=== PATIENT | female | born 1965 | race Caucasian/White ===

== ENCOUNTER → 2016-09-01 | Outpatient (CLI) | payer OTHER ==
--- NOTE | 2016-09-02 14:59 | RADONC ---
RADIATION ONCOLOGY CONSULTATION NOTE DATE: 09/01/2016 CHART NUMBER: [id number] DIAGNOSIS: Left breast cancer. STAGE: IIIC, T2N3M0. ECOG PERFORMANCE STATUS: 0 CONSULTATION NOTE: Ms. Chowdary as a delightful 51-year-old white female with the diagnosis of what appears to be a stage IIIC, T2N3M0, moderately differentiated invasive ductal carcinoma of the left breast who is presenting to us today status post bilateral mastectomies, left axillary lymph node dissection, and chemotherapy consisting of Adriamycin and Cytoxan followed by weekly paclitaxel who is still in the process of receiving her paclitaxel and is now presenting for discussion of the postoperative radiation therapy in attempt to achieve local regional control. HISTORY OF PRESENT ILLNESS: The patient was in the usual state of health until February 2016, and she noticed a left-sided breast mass. On 03/05/2016, the patient underwent a mammogram which revealed a 3 cm x 3.7 cm x 1.7 cm lesion in the upper outer quadrant of the left breast. She subsequently went to the [facility] and was found to have a 7.3 cm x 3.7 cm x 3.4 cm upper outer quadrant left breast mass. Ultrasound was done and confirmed the mass. She was also noted to have large lymph nodes in the left axilla on ultrasound. FNA was done and revealed invasive ductal carcinoma which was moderately differentiated. The tumor was estrogen receptor and progesterone receptor positive and HER2 equivocal. A biopsy of the lymph node was also undertaken and found to be positive. On 04/01/2016, the patient underwent a PET scan which showed hypermetabolic uptake in the left breast superiorly with axillary, subclavian, subclavicular, and supraclavicular lymphadenopathy, all hypermetabolic. There were two suspicious foci of uptake in the internal mammary lymph nodes as well. The patient subsequently underwent bilateral mastectomies. The pathology of the left mastectomy showed moderately differentiated ductal carcinoma in situ with mucinous features. The tumor measured 3.6 cm x 3.4 cm x 2.2 cm. There was high-grade ductal carcinoma in situ as well. The deep margin of resection was focally positive for invasive carcinoma. The margins for DCIS were 8 mm from the closest margin. Axillary lymph node dissection showed metastatic carcinoma with involvement of 11 out of 11 lymph nodes. The largest focus was 3.5 cm, and extranodal extension was present. The patient subsequently underwent dose-dense Adriamycin/Cytoxan chemotherapy which began in April. She is now receiving weekly paclitaxel chemotherapy. She is thus far at her third or fourth fraction of that chemo. The patient has had expanders put in and is presenting today to discuss timing of surgical reconstruction. Her plastic surgeon wishes her to undergo reconstruction following completion of the paclitaxel but before initiation of radiation. PAST MEDICAL HISTORY: The patient's past medical history is positive for a multinodular goiter. This was biopsied in 2012. She has been in otherwise good health. ALLERGIES: The patient has no known drug allergies. SOCIAL HISTORY: The patient has smoked one pack of cigarettes per day for 30 years. She does not abuse alcohol. FAMILY HISTORY: The patient's family history is positive for a mother with breast cancer and a sister with leiomyosarcoma. REVIEW OF SYSTEMS: The patient's review of systems is positive for some dizziness since chemotherapy as well as some anxiety, but is otherwise generally noncontributory. 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 She denies nausea, vomiting, fevers, chills, night sweats, diplopia, headaches, anorexia, weight loss, visual disturbances, chest pain, urinary or bowel difficulties, or bone pain. PHYSICAL EXAMINATION: The patient is a well-developed, well-nourished female in no acute distress. HEENT exam is normocephalic, atraumatic. Extraocular movements are intact. There is no palpable cervical, supraclavicular, infraclavicular, axillary, or inguinal lymphadenopathy present. Lungs are clear to auscultation and percussion. Heart has a regular rate and rhythm. Abdomen is benign with no hepatosplenomegaly, masses, or tenderness. Chest wall examination reveals bilateral mastectomy scars present with expanders in place. There is no evidence of nodularity, ulceration, or recurrent disease. Skeletal examination reveals no tenderness to pressure or percussion of the bony skeleton. Extremities reveal no clubbing, cyanosis, or edema. Neurologic exam is grossly intact, as is the remainder of the physical examination. MEDICAL NECESSITY: IMRT/IGRT is clinically indicated for the highly conformal dose planning required. The target volume is in close proximity to critical structures, such as the heart, lungs, spinal cord, stomach, and esophagus. The volume of interest must be covered with narrow margins to adequately protect immediately adjacent structures. The plan requires interpretation of complex testing such as CT localization. As noted above, special planning (IMRT) and localizing (IGRT) is required and essential to maximally protect sensitive normal tissue structures which cannot be accomplished using conventional 3-dimensional planning. ASSESSMENT: Ms. Chowdary is clearly a candidate for postoperative radiation therapy, and I have so informed her. I have discussed with the patient in detail the potential benefits as well as possible acute and chronic sequelae of external beam radiation therapy. We discussed logistics of treatment planning, simulation, and subsequent fractionated daily radiation treatments. In this patient in particular, I believe IMRT/IGRT would be of benefit. She has a massive amount of lymphadenopathy including all 11 lymph nodes in the axillary region as positive. Her PET scan also shows uptake in the lymph node areas of the subclavicular, subclavian, as well as the internal mammary node chain. In light of the positive PET scan in the internal mammary node chain, these nodes will need to be included in our treatment field. The patient is actually quite young and to include all those nodes on the left side would include a significant amount of heart if we did not to IMRT/IGRT as a therapeutic option for this woman. This technique should allow us to reduce radiation dose to the heart and other normal structures while treating the clinically significant lymph nodes. I also had a very lengthy discussion with her reconstruction. I think this patient is at great risk for local recurrence as well as metastatic disease, and I do not wish to delay radiation unnecessarily. If the surgeon can undertake the reconstruction immediately following her last paclitaxel, then it should not delay radiation by much. We usually wait 1 month post chemotherapy before we initiate treatment. I would think that this would need healing time of approximately the same amount and, therefore, radiation should not be delayed by very much at all. If, however this surgery is going to delay treatment in this patient with exceedingly aggressive and locally advanced disease, I would prefer to begin radiation. She will be discussing this with her surgeon. In the meantime, the patient has at least six more weeks of systemic therapy to undergo. I have, therefore, scheduled to see her again either the first week or second week of November to undergo further evaluation. Radiation can begin at that time if there are no issues with the reconstruction. Thank you for allowing us to participate in the care of this delightful woman. If I could be of any further assistance, please feel free to contact me at anytime. cc: MD Kyler Gonzales *Gio Shen MD *Kelsey Castle MD
== END ==
LOC: M ONCR 13:22
PROVIDERS: ATTEND Radiology Radiation Oncology
DX: C50.912 Malignant neoplasm of unspecified site of left female breast (principal)

== ENCOUNTER → 2016-12-03 | Outpatient (CLI) | payer OTHER ==
--- NOTE | 2016-12-03 13:52 | RADONC ---
RADIATION ONCOLOGY RE-CONSULTATION NOTE DATE: 12/03/2016 CHART NUMBER: [id number] DIAGNOSIS: Left breast cancer. STAGE: IIIC, T2N3M0. ECOG PERFORMANCE STATUS: 0. CONSULTATION NOTE: Ms. Chowdary is a delightful 51-year-old white female with the diagnosis of a stage IIIC, T2N3M0, moderately differentiated invasive ductal carcinoma of the left breast who initially presented to us on 09/01/2016 for consideration of postoperative radiation therapy in an attempt to increase the likelihood of achieving local control. The patient has undergone bilateral mastectomies, left axillary lymph node dissection and chemotherapy consisting of Adriamycin and Cytoxan followed by weekly paclitaxel. In addition she has had reconstruction of her left chest wall completed. Her surgery was done on November 11, 2016. Her last chemotherapy was October 22, 2016. The patient has done well since both of those and is now presenting for consideration of external beam radiation therapy. REVIEW OF SYSTEMS: The patient's review of systems is noncontributory. She denies nausea, vomiting, fevers, chills, night sweats, diplopia, headaches, anxiety or depression, anorexia, weight loss, visual disturbances, chest pain, urinary or bowel difficulties, bone pain, or neurological problems. ALLERGIES: The patient has no known drug allergies. PHYSICAL EXAMINATION: The patient is a well-developed, well-nourished, female in no acute distress. HEENT exam is normocephalic, atraumatic. Extraocular movements are intact. There is no palpable cervical, supraclavicular, infraclavicular, axillary, or inguinal lymphadenopathy present. Lungs are clear to auscultation and percussion. Heart has a regular rate and rhythm. Abdomen is benign with no hepatosplenomegaly, masses, or tenderness. Chest wall examination reveals bilateral scars which are healed. The left cosmetic scar is healing nicely. Skeletal examination reveals no tenderness to pressure or percussion of the bony skeleton. Extremities reveal no clubbing, cyanosis, or edema. Neurologic exam is grossly intact, as is the remainder of the physical examination. ASSESSMENT: Ms. Chowdary is almost ready to initiate radiation. I have scheduled the patient for the next available simulation slot and radiation will begin subsequently. Once again I have discussed with the patient in detail the potential benefits as well as possible acute and chronic sequelae. We discussed logistics of treatment planning, simulation subsequent fractionated daily radiation treatments. I discussed the medical necessity with her with regards to our treatment techniques. We will require IMRT. MEDICAL NECESSITY: IMRT/IGRT is clinically indicated for a highly conformal dose planning regard. The target volume is in close proximity to critical structures, such as the heart, lungs, spinal cord, stomach, and esophagus. The volume of interest must be covered with narrow margins to adequately protect immediately adjacent structures. The plan requires interpretations of complex testing such as CT localization. As noted above, special planning (IMRT) and localizing [IGRT) is required and essential to maximize protect sensitive normal tissue structures which cannot be accomplished using conventional three-dimensional planning. Thank you for allowing us to participate in the care of this very pleasant woman. If I could be of any further assistance or provide you with any information, please free to contact me anytime. cc: Mel Connors MD, FACP MD Kyler Rodriguez MD
--- NOTE | 2016-12-08 14:59 | RADONC ---
RADIATION ONCOLOGY SIMULATION NOTE: DATE: 12/08/2016 CHART NUMBER: [id number] Ms. Chowdary was taken to the CT scan for CT simulation of her left breast field. CT was accomplished without difficulty or discomfort. Radiation treatment planning is underway and radiation treatments will begin subsequently. I was physically present throughout the course of CT simulation. An immobilization device was created and will be used throughout the course of treatment. It was also created without difficulty or discomfort. IMRT treatment planning is underway. The patient's surgical scar is healing nicely but they are still sutures present. She should be ready to begin in a week to a week and a half or so.
== END ==
LOC: M ONCR 09:56
PROVIDERS: ATTEND Radiology Radiation Oncology
DX: C50.412 Malignant neoplasm of upper-outer quadrant of left female breast (principal)

== ENCOUNTER 2016-12-08 15:25 | Outpatient (RCR) | payer OTHER | END 2016-12-11 | LOC: M ONCR 15:25 | PROVIDERS: ATTEND Radiology Radiation Oncology | DX: C50.412 Malignant neoplasm of upper-outer quadrant of left female breast (principal) ==

== ENCOUNTER → 2016-12-08 | Outpatient (CLI) | payer OTHER | LOC: M RAD 14:18 | PROVIDERS: ATTEND Radiology Radiation Oncology | DX: C50.412 Malignant neoplasm of upper-outer quadrant of left female breast (principal) ==

== ENCOUNTER 2016-12-21 16:24 | Outpatient (RCR) | payer OTHER ==
--- NOTE | 2016-12-28 15:17 | RADONC ---
RADIATION ONCOLOGY PROGRESS NOTE: DATE: 12/28/2016 CHART NUMBER: [id number] Ms. Chowdary is presently at a dose of 540 cGy to her left chest wall and is tolerating treatments quite well at this point with no complaints related to her radiation therapy. She is having no skin or bone pain. REVIEW OF SYSTEMS: The patient's review of systems is noncontributory. She denies nausea, vomiting, fevers, chills, night sweats, diplopia, headaches, anxiety or depression, anorexia, weight loss, visual disturbances, chest pain, urinary or bowel difficulties, bone pain, or neurological problems. PHYSICAL EXAMINATION: The patient's skin is in good condition with no evidence of radiation change present. There is no moist or dry desquamation. The remainder of her physical exam remains unchanged. Ms. Chowdary is tolerating treatments quite well and radiation will continue as scheduled.
--- NOTE | 2017-01-05 08:58 | RADONC ---
RADIATION ONCOLOGY PROGRESS NOTE DATE: 01/04/2017 CHART NUMBER: [id number] Ms. Chowdary is presently at a dose of 1080 cGy to her chest wall and is tolerating treatments quite well at this point with no complaints related to her radiation therapy. She is having no skin or bone pain. The patient's review of systems is noncontributory. She denies nausea, vomiting, fevers, chills, night sweats, diplopia, headaches, anxiety or depression, anorexia, weight loss, visual disturbances, chest pain, urinary or bowel difficulties, bone pain, or neurological problems. PHYSICAL EXAMINATION: The patient's skin is in good condition with no evidence of moist or dry desquamation. The remainder of her physical exam remains unchanged. Ms. Chowdary is tolerating treatments quite well and radiation will continue as scheduled.
== END 2017-01-11 ==
LOC: M ONCR 16:24
PROVIDERS: ATTEND Radiology Radiation Oncology
DX: C50.412 Malignant neoplasm of upper-outer quadrant of left female breast (principal)

== ENCOUNTER 2017-01-12 11:04 | Outpatient (RCR) | payer OTHER ==
--- NOTE | 2017-01-18 10:12 | RADONC ---
RADIATION ONCOLOGY PROGRESS NOTE: DATE: 01/18/2017 CHART NUMBER: [id number] Ms. Chowdary is presently at a dose of 3060 cGy to her left chest wall and lymphatic drainage sites and is tolerating treatments quite well at this point with no complaints related to her radiation therapy. She is having no chest wall or bone pain. REVIEW OF SYSTEMS: The patient's review of systems is noncontributory. She denies nausea, vomiting, fevers, chills, night sweats, diplopia, headaches, anxiety or depression, anorexia, weight loss, visual disturbances, chest pain, urinary or bowel difficulties, bone pain, or neurological problems. PHYSICAL EXAMINATION: The patient's skin is in good condition with no evidence of moist or dry desquamation. There is some radiation tanning present. The remainder of her physical exam remains unchanged. Ms. Chowdary is tolerating treatments quite well and radiation will continue as scheduled.
--- NOTE | 2017-01-26 08:55 | RADONC ---
RADIATION ONCOLOGY PROGRESS NOTE DATE: 01/25/2017 CHART NUMBER: [id number] Ms. Chowdary is presently at a dose of 3960 cGy to her left chest wall and is tolerating treatments quite well at this point with no complaints related to her radiation therapy. She is having no chest wall or bone pain. REVIEW OF SYSTEMS: The patient's review of systems is noncontributory. She denies nausea, vomiting, fevers, chills, night sweats, diplopia, headaches, anxiety or depression, anorexia, weight loss, visual disturbances, chest pain, urinary or bowel difficulties, bone pain, or neurological problems. PHYSICAL EXAMINATION: The patient's skin is in good condition with no evidence of moist or dry desquamation. The remainder of her physical exam remains unchanged. Ms. Chowdary is tolerating treatments quite well and radiation will continue as scheduled.
--- NOTE | 2017-02-02 11:11 | RADONC ---
RADIATION ONCOLOGY PROGRESS NOTE: DATE OF SERVICE: 02/01/2017 CHART NUMBER [id number] Ms. Chowdary is presently at a dose of 4860 cGy to her left chest wall and is tolerating treatments quite well at this point with no significant difficulties related to her radiation therapy other than some fatigue. She has no breast or bone pain. The patient's review of systems is positive for fatigue but is otherwise noncontributory. She denies nausea, vomiting, fevers, chills, night sweats, diplopia, headaches, anxiety or depression, anorexia, weight loss, visual disturbances, chest pain, urinary or bowel difficulties, bone pain, or neurological problems. PHYSICAL EXAMINATION: The patient's skin is in excellent condition with no evidence of moist or dry desquamation. The remainder of her physical exam remains unchanged. Ms. Chowdary is tolerating treatments quite well and radiation will continue as scheduled.
--- NOTE | 2017-02-09 09:02 | RADONC ---
RADIATION ONCOLOGY PROGRESS NOTE DATE: 02/08/2017 CHART NUMBER: [id number] Ms. Chowdary is presently at a dose of 5760 cGy to her left to left chest wall boost and is tolerating treatments quite well at this point with no complaints related to her radiation therapy. She is having no significant skin discomfort or other problems. The patient's review of systems is noncontributory. She denies nausea, vomiting, fevers, chills, night sweats, diplopia, headaches, anxiety or depression, anorexia, weight loss, visual disturbances, chest pain, urinary or bowel difficulties, bone pain, or neurological problems. PHYSICAL EXAMINATION: The patient's skin is in good condition with no evidence of moist or dry desquamation. The remainder of her physical exam remains unchanged. Ms. Chowdary is tolerating her treatments quite well and radiation will continue as scheduled.
--- NOTE | 2017-02-10 13:50 | RADONC ---
RADIATION ONCOLOGY TREATMENT SUMMARY DATE: 02/09/2017 CHART NUMBER: [id number] DIAGNOSIS: Left breast cancer. STAGE: IIIC, T2N3M0. ECOG PERFORMANCE STATUS: 0 TREATMENT SUMMARY: Ms. Chowdary is a delightful 51-year-old white female with the diagnosis of a stage IIIC, T2N3M0, moderately differentiated invasive ductal carcinoma of the left breast, who presented to us status post bilateral mastectomies, left axillary lymph node dissection, and chemotherapy consisting of Adriamycin and Cytoxan followed by weekly paclitaxel for consideration of postoperative radiation therapy to her left chest wall and lymph node drainage sites utilizing IMRT. We treated the patient to her chest wall and lymph node sites for a dose of 5040 cGy delivered in 28 fractions of 180 cGy each over 40 elapsed days from 12/24/2016 to 02/02/2017. The patient's left chest wall and lymph node drainage sites were treated on the linear accelerator utilizing a 6 MV photon beam via IMRT/IGRT. Following completion of 5040 cGy to the entire chest wall and lymph node regions, we delivered an additional 900 cGy to her primary site area from 02/03/2017 through 02/09/2017. The primary site region was treated on a linear accelerator utilizing a 6 MV photon beam once again via IMRT. This brought the primary site to a total dose of 5940 cGy delivered in 33 fractions over 47 elapsed days from 12/24/2016 through 02/09/2017. Ms. Chowdary tolerated her treatments quite well with no difficulties related to her radiation therapy. She was able to complete therapy as prescribed without interruption. I have scheduled the patient to see me again in 1 month for further followup. She will also continue to be followed by her other physicians as well. cc: Mel Connors MD, FACP MD Kyler Rodriguez MD
== END 2017-02-11 ==
LOC: M ONCR 11:04
PROVIDERS: ATTEND Radiology Radiation Oncology
DX: C50.412 Malignant neoplasm of upper-outer quadrant of left female breast (principal)

== ENCOUNTER → 2017-01-21 | Outpatient (REF) | payer OTHER ==
[2017-01-21 19:35] LABS: PERCENT SATURATION 26.5 % (13.2-45.0)
== END ==
LOC: M LAB REF 16:39
PROVIDERS: ATTEND Internal Medicine Medical Oncology
DX: C50.919 Malignant neoplasm of unspecified site of unspecified female breast (principal); D64.9 Anemia, unspecified

== ENCOUNTER → 2017-02-01 | Outpatient (CLI) | payer OTHER ==
--- NOTE | 2017-02-03 10:58 | DEXA ---
AP SPINE L1 - L4 0.978 -1.8 -1.2 LT FEMUR TOTAL 0.706 -2.4 -1.8 RT FEMUR TOTAL 0.713 -2.3 -1.8 TOTAL BODY TOTAL OTHER DUAL FEMUR FRAX* ASSESSMENT Risk factors: Not done. 10 year probability of fracture Major osteoporotic fracture % Hip fracture % COMMENTS: There is low bone density of the spine and hips. FOLLOW-UP: Recommendation for the next bone density exam: 2 years. MTDD
== END ==
LOC: M WHC 14:32
PROVIDERS: ATTEND Internal Medicine Medical Oncology
DX: Z79.811 Long term (current) use of aromatase inhibitors (principal); C50.919 Malignant neoplasm of unspecified site of unspecified female breast; Z78.0 Asymptomatic menopausal state

== ENCOUNTER → 2017-03-17 | Outpatient (CLI) | payer OTHER ==
--- NOTE | 2017-03-18 08:09 | RADONC ---
RADIATION ONCOLOGY FOLLOWUP NOTE DATE: 03/17/2017 CHART NUMBER: [id number]. DIAGNOSIS: Left breast cancer. STAGE: IIIC, T2N3M0 ECOG PERFORMANCE STATUS: Zero. FOLLOWUP NOTE: Ms. Chowdary is a delightful, 51-year-old white female with the diagnosis of what appears to be a stage IIIC, T2N3M0 moderately differentiated invasive ductal carcinoma of the left breast who is presenting to us today for routine followup visit 1 month post completion of external beam radiation therapy. The patient presents today reporting that she is doing quite well with no complaints at this time related to her radiation therapy or disease. She has no chest wall or bone pain. REVIEW OF SYSTEMS: The patient's review of systems is noncontributory. Denies nausea, vomiting, fevers, chills, night sweats, diplopia, headaches, anxiety or depression, anorexia, weight loss, visual disturbances, chest pain, urinary or bowel difficulties, bone pain, or neurological problems. PHYSICAL EXAMINATION: The patient is a well-developed, well-nourished, 51-year-old white female in no acute distress. HEENT exam is normocephalic, atraumatic. Extraocular movements are intact. There is no palpable cervical, supraclavicular, infraclavicular, axillary, or inguinal lymphadenopathy present. Lungs are clear to auscultation and percussion. Heart has a regular rate and rhythm. Abdomen is benign with no hepatosplenomegaly, masses, or tenderness. Breast examination reveals bilateral chest wall examination reveals no evidence of nodularity, ulceration or recurrent disease. There is radiation tanning present over the radiated breast. Skeletal examination reveals no tenderness to pressure or percussion of the bony skeleton. Extremities reveal no clubbing, cyanosis, or edema. Neurologic exam is grossly intact, as is the remainder of the physical examination. ASSESSMENT: The patient is clinically doing quite well at this point and will be seen by us again in 6 months for further followup. She will also continue to be followed by her other physicians as well. cc: Mel Connors MD, FACP MD Kyler Rodriguez MD
== END ==
LOC: M ONCR 15:17
PROVIDERS: ATTEND Radiology Radiation Oncology
DX: C50.412 Malignant neoplasm of upper-outer quadrant of left female breast (principal)

== ENCOUNTER → 2017-11-16 | Outpatient (REF) | payer OTHER ==
[2017-11-16 19:15] LABS: FERRITIN 88 NG/ML (8-252); IRON (FE) 77 UG/DL (50-170); PERCENT SATURATION 23.6 % (13.2-45.0); TOTAL IRON BINDING CAPACITY 326 UG/DL (250-450)
== END ==
LOC: M LAB REF 17:46
DX: D64.9 Anemia, unspecified (principal); C50.412 Malignant neoplasm of upper-outer quadrant of left female breast
CPT/HCPCS: 83550

== ENCOUNTER 2018-05-26 17:28 | Inpatient (IN) | payer OTHER ==
[2018-05-26 18:31] LABS: BASO % 0.2 % (0.0-1.0); EOS % 0.2 % (0.0-3.0); HEMOGLOBIN 12.7 g/dl (12.0-15.5); IMMATURE GRANULOCYTE % 0.4 % (0-3.0); LYMPH # 1.4 10^3/uL (1.5-4.5); LYMPH % 13.6 % (24.0-44.0); MEAN CORPUSCULAR HEMOGLOBIN 29.4 pg (27.0-33.0); MEAN CORPUSCULAR HGB CONC 32.6 g/dl (32.0-36.5); MEAN CORPUSCULAR VOLUME 90.3 fl (80.0-96.0); MONO # 0.2 10^3/uL (0.0-0.8); MONO % 2.3 % (0.0-5.0); NEUTROPHILS # 8.5 10^3/uL (1.8-7.7); NEUTROPHILS % 83.3 % (36.0-66.0); PLATELET COUNT, AUTOMATED 335 10^3/uL (150-450); RED BLOOD COUNT 4.32 10^6/uL (4.00-5.40); RED CELL DISTRIBUTION WIDTH 13.9 % (11.5-14.5); WHITE BLOOD COUNT 10.2 10^3/uL (4.0-10.0)
[2018-05-26] MEDS ORDERED: ACETAMINOPHEN TAB 650MG DOSE (2X325MG) PO (18:45)
[2018-05-26] MEDS ORDERED: PERCOCET 5MG/325MG TAB PO ×2 (18:45)
[2018-05-26] MEDS ORDERED: BISACODYL 10 MG SUPP PR (18:45)
[2018-05-26 18:57] LABS: ANION GAP 8 MEQ/L (8-16); BLOOD UREA NITROGEN 11 MG/DL (7-18); CALCIUM LEVEL 9.8 MG/DL (8.5-10.1); CARBON DIOXIDE LEVEL 27 MEQ/L (21-32); CHLORIDE LEVEL 103 MEQ/L (98-107); CK-MB VALUE MASS < 1.0 NG/ML (<3.6); CPK CREATINE PHOSPHOKINASE 45 U/L (26-192); CREATININE FOR GFR 0.64 MG/DL (0.55-1.30); GLOMERULAR FILTRATION RATE > 60.0 (>51); GLUCOSE, FASTING 117 MG/DL (70-100); MB/CK RELATIVE INDEX 2.22 (< OR =4); POTASSIUM SERUM 4.3 MEQ/L (3.5-5.1); SODIUM LEVEL 138 MEQ/L (136-145); TROPONIN I < 0.02 NG/ML (< 0.10)
[2018-05-26 19:08] LABS: LDH LACTATE DEHYDROGENASE 292 U/L (84-246)
[2018-05-26] MEDS ORDERED: MIDAZOLAM INJ 2 MG/2 ML VIAL (J2250) As Ordered ×3 (19:09)
[2018-05-26] MEDS ORDERED: LIDOCAINE 1% MDV 20ML VIAL As Ordered (19:09)
[2018-05-26] MEDS ORDERED: FLUMAZENIL 0.5 MG/5 ML VIAL As Ordered (19:09)
[2018-05-26 19:29] LABS: PROTHROMBIN TIME 13.3 SECONDS (12.1-14.4)
[2018-05-26 19:30] LABS: PARTIAL THROMBOPLASTIN TIME 28.2 SECONDS (25.4-37.6)
[2018-05-26] MEDS: MIDAZOLAM INJ 5 MG/ML VIAL (J2250) IV (20:05)
[2018-05-26] MEDS: MIDAZOLAM INJ 2 MG/2 ML VIAL (J2250) IV ×2 (20:08→20:15)
[2018-05-26] MEDS: LIDOCAINE 1% MDV 20ML VIAL SC (20:10)
[2018-05-26] MEDS: KETOROLAC 30 MG/ML VIAL (J1885) IV ×2 (20:20→23:15)
[2018-05-26 20:46] LABS: PH BODY FLUID 7.591 UNITS (NOT ESTABLISHED); SOURCE, BODY FLUID pH PLEURAL
[2018-05-26 20:58] LABS: BF MONONUCLEAR CELL % 86.1 % (0-0); BF POLYMORPHONUCLEAR CELL % 13.9 % (0-0); RBC BODY FLUID 143 10^3/uL (<2); WBC BODY FLUID 347 /uL (0-10)
[2018-05-26 20:59] LABS: APPEARANCE, BODY FLUID CLOUDY (CLEAR); BF DIFF IF INDICATED? YES (NO); PLEURAL FL COLOR RED (COLORLESS); SOURCE, BODY FLUID PLEURAL
[2018-05-26 21:02] LABS: ABG BASE EXCESS 0.2 (-2.0-2.0); ABG HCO3 25.4 MEQ/L (22.0-26.0); ABG O2 SATURATION 95.2 % (95.0-99.0); ABG PARTIAL PRESSURE CO2 43.4 mmHg (35.0-45.0); ABG PARTIAL PRESSURE O2 80.7 mmHg (75.0-100.0); ABG STANDARD HCO3 24.6 MEQ/L (22.0-26.0); ABG TOTAL CO2 26.7 MEQ/L (22.0-29.0); ABG pH (ARTERIAL) 7.385 UNITS (7.350-7.450)
[2018-05-26] MEDS: LEVALBUTEROL 1.25 MG/0.5 ML CONCENTRATE NEB NEB (21:04)
[2018-05-26 21:11] LABS: AMYLASE, BODY FLUID 64 U/L (NOT ESTABLISHED); CHOLESTEROL, BODY FLUID 101 MG/DL (NOT ESTABLISHED); LDH, BODY FLUID 504 U/L (NOT ESTABLISHED); SOURCE, BODY FLUID AMYLASE PLEURAL; SOURCE, BODY FLUID CHOL PLEURAL; SOURCE, BODY FLUID GLUCOSE PLEURAL; SOURCE, BODY FLUID LDH PLEURAL; SOURCE, BODY FLUID TRIG PLEURAL; TRIGLYCERIDE, BODY FLUID 47 MG/DL (NOT ESTABLISHED)
[2018-05-26 21:15] LABS: SOURCE, BODY FLUID ALBUMIN PLEURAL; SOURCE, BODY FLUID TOT PROTEIN PLEURAL; TOTAL PROTEIN, BODY FLUID 4.6 G/DL (NOT ESTABLISHED)
[2018-05-26] MEDS: KCL 20MEQ IN D5/NS 1000ML 1,000 ML IV (21:45)
[2018-05-26] MEDS: DULoxetine 30 MG CAP (CYMBALTA) PO (21:46)
[2018-05-26] MEDS: DOCUSATE SODIUM 100 MG CAP PO (21:46)
[2018-05-26] MEDS: HEPARIN SOD (PORCINE) 5000 UNITS/ML VIAL SC (21:47)
[2018-05-26] MEDS: LETROZOLE 2.5 MG TAB PO ×2 (21:47→22:21)
[2018-05-27] MEDS: LEVALBUTEROL 1.25 MG/0.5 ML CONCENTRATE NEB NEB ×4 (02:32→20:37)
[2018-05-27 05:01] LABS: BASO % 0.3 % (0.0-1.0); EOS # 0.1 10^3/uL (0.0-0.50); EOS % 1.2 % (0.0-3.0); HEMATOCRIT 31.6 % (36.0-47.0); IMMATURE GRANULOCYTE % 0.4 % (0-3.0); LYMPH # 2.4 10^3/uL (1.5-4.5); LYMPH % 20.5 % (24.0-44.0); MEAN CORPUSCULAR HEMOGLOBIN 29.4 pg (27.0-33.0); MEAN CORPUSCULAR HGB CONC 31.6 g/dl (32.0-36.5); MEAN CORPUSCULAR VOLUME 92.9 fl (80.0-96.0); MONO # 0.6 10^3/uL (0.0-0.8); MONO % 5.4 % (0.0-5.0); NEUTROPHILS # 8.3 10^3/uL (1.8-7.7); NEUTROPHILS % 72.2 % (36.0-66.0); PLATELET COUNT, AUTOMATED 263 10^3/uL (150-450); WHITE BLOOD COUNT 11.5 10^3/uL (4.0-10.0)
[2018-05-27 05:17] LABS: ANION GAP 5 MEQ/L (8-16); BLOOD UREA NITROGEN 10 MG/DL (7-18); CALCIUM LEVEL 8.5 MG/DL (8.5-10.1); CARBON DIOXIDE LEVEL 26 MEQ/L (21-32); CHLORIDE LEVEL 109 MEQ/L (98-107); CREATININE FOR GFR 0.56 MG/DL (0.55-1.30); GLOMERULAR FILTRATION RATE > 60.0 (>51); GLUCOSE, FASTING 112 MG/DL (70-100); POTASSIUM SERUM 4.4 MEQ/L (3.5-5.1); SODIUM LEVEL 140 MEQ/L (136-145)
[2018-05-27] MEDS: KETOROLAC 30 MG/ML VIAL (J1885) IV ×3 (05:27→17:14)
[2018-05-27 07:26] LABS: ABG BASE EXCESS -1.4 (-2.0-2.0); ABG HCO3 23.4 MEQ/L (22.0-26.0); ABG O2 SATURATION 98.3 % (95.0-99.0); ABG PARTIAL PRESSURE CO2 39.5 mmHg (35.0-45.0); ABG PARTIAL PRESSURE O2 125.8 mmHg (75.0-100.0); ABG STANDARD HCO3 23.3 MEQ/L (22.0-26.0); ABG TOTAL CO2 24.6 MEQ/L (22.0-29.0)
[2018-05-27] MEDS: MOM 30ML SUSPENSION UDC PO (10:02)
[2018-05-27] MEDS: KCL 20MEQ IN D5/NS 1000ML 1,000 ML IV (10:03)
[2018-05-27] MEDS: HEPARIN SOD (PORCINE) 5000 UNITS/ML VIAL SC ×2 (10:03→20:56)
[2018-05-27] MEDS: DOCUSATE SODIUM 100 MG CAP PO ×2 (10:13→20:54)
[2018-05-27] MEDS: PANTOPRAZOLE 40MG TAB (PROTONIX) PO (10:13)
[2018-05-27] MEDS: LORazepam 1 MG TAB PO (17:38)
[2018-05-27] MEDS: diphenhydrAMINE 25 MG CAP PO (20:54)
[2018-05-27] MEDS: DULoxetine 30 MG CAP (CYMBALTA) PO (20:55)
[2018-05-27] MEDS: LETROZOLE 2.5 MG TAB PO (20:55)
[2018-05-28] MEDS: KETOROLAC 30 MG/ML VIAL (J1885) IV ×2 (00:15→05:25)
[2018-05-28] MEDS: LEVALBUTEROL 1.25 MG/0.5 ML CONCENTRATE NEB NEB ×4 (01:02→20:09)
[2018-05-28 05:54] LABS: BASO % 0.4 % (0.0-1.0); EOS # 0.6 10^3/uL (0.0-0.50); EOS % 6.6 % (0.0-3.0); HEMATOCRIT 23.9 % (36.0-47.0); IMMATURE GRANULOCYTE % 0.5 % (0-3.0); LYMPH # 1.9 10^3/uL (1.5-4.5); LYMPH % 22.8 % (24.0-44.0); MEAN CORPUSCULAR HEMOGLOBIN 28.7 pg (27.0-33.0); MEAN CORPUSCULAR HGB CONC 31.4 g/dl (32.0-36.5); MEAN CORPUSCULAR VOLUME 91.6 fl (80.0-96.0); MONO # 0.6 10^3/uL (0.0-0.8); MONO % 6.7 % (0.0-5.0); NEUTROPHILS # 5.3 10^3/uL (1.8-7.7); PLATELET COUNT, AUTOMATED 213 10^3/uL (150-450); RED BLOOD COUNT 2.61 10^6/uL (4.00-5.40); RED CELL DISTRIBUTION WIDTH 13.9 % (11.5-14.5); WHITE BLOOD COUNT 8.5 10^3/uL (4.0-10.0)
[2018-05-28 06:03] LABS: HEMOGLOBIN 7.5 g/dl (12.0-15.5)
[2018-05-28 06:21] LABS: ANION GAP 6 MEQ/L (8-16); BLOOD UREA NITROGEN 8 MG/DL (7-18); CALCIUM LEVEL 7.9 MG/DL (8.5-10.1); CARBON DIOXIDE LEVEL 27 MEQ/L (21-32); CHLORIDE LEVEL 106 MEQ/L (98-107); CREATININE FOR GFR 0.48 MG/DL (0.55-1.30); GLOMERULAR FILTRATION RATE > 60.0 (>51); GLUCOSE, FASTING 96 MG/DL (70-100); SODIUM LEVEL 139 MEQ/L (136-145)
[2018-05-28 07:48] LABS: HEMATOCRIT 23.1 % (36.0-47.0); HEMOGLOBIN 7.6 g/dl (12.0-15.5)
[2018-05-28 08:55] LABS: CREATININE BF 0.4 MG/DL (NOT ESTABLISHED); SOURCE, BODY FLUID CREATININE PLEURAL
[2018-05-28] MEDS: HEPARIN SOD (PORCINE) 5000 UNITS/ML VIAL SC ×2 (09:00→21:00)
[2018-05-28] MEDS: NS 1,000 ML IV (09:00)
[2018-05-28] MEDS: MOM 30ML SUSPENSION UDC PO (09:00)
[2018-05-28] MEDS: DOCUSATE SODIUM 100 MG CAP PO ×2 (09:00→20:57)
[2018-05-28] MEDS: PANTOPRAZOLE 40MG TAB (PROTONIX) PO (09:00)
[2018-05-28] MEDS ORDERED: ISOVUE-370 76% 100ML VIAL (Q9967) As Ordered (09:02)
[2018-05-28 10:42] LABS: IMMEDIATE SPIN CROSSMATCH 1 2
[2018-05-28] MEDS: ONDANSETRON 4MG/2ML VIAL (J2405) IV ×2 (12:42→19:34)
[2018-05-28] MEDS: NORCO, ANEXSIA 5/325MG TABLET (HYDROcodone/ACETAMINOPHEN) PO ×2 (12:44→19:37)
[2018-05-28] MEDS: KCL 20MEQ IN D5/NS 1000ML 1,000 ML IV (13:17)
[2018-05-28 13:43] LABS: HEMATOCRIT 30.5 % (36.0-47.0); HEMOGLOBIN 10.2 g/dl (12.0-15.5)
[2018-05-28 15:29] LABS: HEMATOCRIT 29.6 % (36.0-47.0); HEMOGLOBIN 9.9 g/dl (12.0-15.5)
[2018-05-28 19:00] LABS: HEMATOCRIT 27.9 % (36.0-47.0); HEMOGLOBIN 9.5 g/dl (12.0-15.5)
[2018-05-28] MEDS: LETROZOLE 2.5 MG TAB PO (20:57)
[2018-05-28] MEDS: DULoxetine 30 MG CAP (CYMBALTA) PO (20:57)
[2018-05-28] MEDS: diphenhydrAMINE 25 MG CAP PO (20:59)
[2018-05-29] MEDS: ONDANSETRON 4MG/2ML VIAL (J2405) IV ×3 (00:14→17:44)
[2018-05-29] MEDS: NORCO, ANEXSIA 5/325MG TABLET (HYDROcodone/ACETAMINOPHEN) PO ×3 (00:15→17:45)
[2018-05-29] MEDS: KCL 20MEQ IN D5/NS 1000ML 1,000 ML IV ×2 (00:17→12:40)
[2018-05-29] MEDS: LEVALBUTEROL 1.25 MG/0.5 ML CONCENTRATE NEB NEB ×5 (00:18→20:10)
[2018-05-29 04:14] LABS: BASO % 0.2 % (0.0-1.0); EOS # 0.5 10^3/uL (0.0-0.50); EOS % 5.2 % (0.0-3.0); HEMATOCRIT 26.6 % (36.0-47.0); HEMOGLOBIN 8.9 g/dl (12.0-15.5); IMMATURE GRANULOCYTE % 0.3 % (0-3.0); LYMPH # 1.7 10^3/uL (1.5-4.5); LYMPH % 17.4 % (24.0-44.0); MEAN CORPUSCULAR HEMOGLOBIN 30.3 pg (27.0-33.0); MEAN CORPUSCULAR HGB CONC 33.5 g/dl (32.0-36.5); MEAN CORPUSCULAR VOLUME 90.5 fl (80.0-96.0); MONO # 0.8 10^3/uL (0.0-0.8); MONO % 7.7 % (0.0-5.0); NEUTROPHILS # 6.7 10^3/uL (1.8-7.7); NEUTROPHILS % 69.2 % (36.0-66.0); PLATELET COUNT, AUTOMATED 191 10^3/uL (150-450); RED BLOOD COUNT 2.94 10^6/uL (4.00-5.40); RED CELL DISTRIBUTION WIDTH 13.9 % (11.5-14.5); WHITE BLOOD COUNT 9.7 10^3/uL (4.0-10.0)
[2018-05-29 04:15] LABS: ANION GAP 5 MEQ/L (8-16); BLOOD UREA NITROGEN 6 MG/DL (7-18); CALCIUM LEVEL 7.7 MG/DL (8.5-10.1); CARBON DIOXIDE LEVEL 25 MEQ/L (21-32); CHLORIDE LEVEL 107 MEQ/L (98-107); CREATININE FOR GFR 0.44 MG/DL (0.55-1.30); GLOMERULAR FILTRATION RATE > 60.0 (>51); GLUCOSE, FASTING 119 MG/DL (70-100); POTASSIUM SERUM 4.1 MEQ/L (3.5-5.1); SODIUM LEVEL 137 MEQ/L (136-145)
[2018-05-29] MEDS: PANTOPRAZOLE 40MG TAB (PROTONIX) PO (09:59)
[2018-05-29] MEDS: MOM 30ML SUSPENSION UDC PO (10:46)
[2018-05-29] MEDS: DOCUSATE SODIUM 100 MG CAP PO ×2 (10:46→20:24)
[2018-05-29 12:01] LABS: IMMEDIATE SPIN CROSSMATCH 1 1
[2018-05-29] MEDS: FERROUS SULFATE 325MG TAB PO (15:13)
[2018-05-29] MEDS: LETROZOLE 2.5 MG TAB PO (20:36)
[2018-05-29] MEDS: DULoxetine 30 MG CAP (CYMBALTA) PO (20:36)
[2018-05-29] MEDS: LORazepam 1 MG TAB PO (22:06)
[2018-05-30] MEDS: LEVALBUTEROL 1.25 MG/0.5 ML CONCENTRATE NEB NEB ×5 (00:02→19:44)
[2018-05-30 04:05] LABS: BASO % 0.3 % (0.0-1.0); EOS # 0.5 10^3/uL (0.0-0.50); HEMATOCRIT 30.5 % (36.0-47.0); HEMOGLOBIN 10.3 g/dl (12.0-15.5); IMMATURE GRANULOCYTE % 0.6 % (0-3.0); LYMPH # 1.3 10^3/uL (1.5-4.5); LYMPH % 14.3 % (24.0-44.0); MEAN CORPUSCULAR HEMOGLOBIN 30.4 pg (27.0-33.0); MEAN CORPUSCULAR HGB CONC 33.8 g/dl (32.0-36.5); MONO # 0.8 10^3/uL (0.0-0.8); MONO % 8.7 % (0.0-5.0); NEUTROPHILS # 6.6 10^3/uL (1.8-7.7); NEUTROPHILS % 71.1 % (36.0-66.0); PLATELET COUNT, AUTOMATED 162 10^3/uL (150-450); RED BLOOD COUNT 3.39 10^6/uL (4.00-5.40); RED CELL DISTRIBUTION WIDTH 13.9 % (11.5-14.5); WHITE BLOOD COUNT 9.3 10^3/uL (4.0-10.0)
[2018-05-30 04:23] LABS: ANION GAP 4 MEQ/L (8-16); BLOOD UREA NITROGEN 7 MG/DL (7-18); CALCIUM LEVEL 7.6 MG/DL (8.5-10.1); CARBON DIOXIDE LEVEL 30 MEQ/L (21-32); CHLORIDE LEVEL 103 MEQ/L (98-107); CREATININE FOR GFR 0.51 MG/DL (0.55-1.30); GLOMERULAR FILTRATION RATE > 60.0 (>51); GLUCOSE, FASTING 111 MG/DL (70-100); POTASSIUM SERUM 3.9 MEQ/L (3.5-5.1); SODIUM LEVEL 137 MEQ/L (136-145)
[2018-05-30] MEDS: PANTOPRAZOLE 40MG TAB (PROTONIX) PO (08:54)
[2018-05-30] MEDS: FERROUS SULFATE 325MG TAB PO (08:54)
[2018-05-30] MEDS: DOCUSATE SODIUM 100 MG CAP PO ×2 (08:54→20:03)
[2018-05-30] MEDS: MOM 30ML SUSPENSION UDC PO (08:54)
[2018-05-30] MEDS: ONDANSETRON 4MG/2ML VIAL (J2405) IV ×2 (14:07→20:15)
[2018-05-30] MEDS: NORCO, ANEXSIA 5/325MG TABLET (HYDROcodone/ACETAMINOPHEN) PO ×2 (14:07→20:15)
[2018-05-30] MEDS: DULoxetine 30 MG CAP (CYMBALTA) PO (20:14)
[2018-05-30] MEDS: LETROZOLE 2.5 MG TAB PO (20:14)
[2018-05-30] MEDS: LORazepam 1 MG TAB PO (22:17)
[2018-05-31] MEDS: LEVALBUTEROL 1.25 MG/0.5 ML CONCENTRATE NEB NEB ×2 (00:48→07:52)
[2018-05-31 05:02] LABS: BASO % 0.4 % (0.0-1.0); EOS # 0.7 10^3/uL (0.0-0.50); EOS % 8.8 % (0.0-3.0); HEMOGLOBIN 10.4 g/dl (12.0-15.5); IMMATURE GRANULOCYTE % 0.5 % (0-3.0); LYMPH # 1.3 10^3/uL (1.5-4.5); MEAN CORPUSCULAR HEMOGLOBIN 30.5 pg (27.0-33.0); MEAN CORPUSCULAR HGB CONC 33.5 g/dl (32.0-36.5); MEAN CORPUSCULAR VOLUME 90.9 fl (80.0-96.0); MONO # 0.7 10^3/uL (0.0-0.8); MONO % 8.2 % (0.0-5.0); NEUTROPHILS # 5.5 10^3/uL (1.8-7.7); NEUTROPHILS % 66.1 % (36.0-66.0); PLATELET COUNT, AUTOMATED 174 10^3/uL (150-450); RED BLOOD COUNT 3.41 10^6/uL (4.00-5.40); WHITE BLOOD COUNT 8.4 10^3/uL (4.0-10.0)
[2018-05-31 05:22] LABS: ANION GAP 6 MEQ/L (8-16); BLOOD UREA NITROGEN 8 MG/DL (7-18); CARBON DIOXIDE LEVEL 28 MEQ/L (21-32); CHLORIDE LEVEL 104 MEQ/L (98-107); CREATININE FOR GFR 0.41 MG/DL (0.55-1.30); GLOMERULAR FILTRATION RATE > 60.0 (>51); GLUCOSE, FASTING 99 MG/DL (70-100); POTASSIUM SERUM 4.2 MEQ/L (3.5-5.1); SODIUM LEVEL 138 MEQ/L (136-145)
[2018-05-31] MEDS: FERROUS SULFATE 325MG TAB PO (09:20)
[2018-05-31] MEDS: PANTOPRAZOLE 40MG TAB (PROTONIX) PO (09:20)
== END 2018-05-31 10:15 | disposition home or self-care (01) | DRG 844 ==
LOC: M PCU 05-28 02:56 → M ICU 05-28 09:51 → M ED 17:28 → M ED INP 18:42 → M ICU 19:13
PROC: 0W9B00Z Drainage of Left Pleural Cavity with Drainage Device, Open Approach (ICD-10-PCS; principal; 2018-05-26)
PROC: 30233N1 Transfusion of Nonautologous Red Blood Cells into Peripheral Vein, Percutaneous Approach (ICD-10-PCS; 2018-05-28)
DX: C79.89 Secondary malignant neoplasm of other specified sites (principal); D62 Acute posthemorrhagic anemia; J91.0 Malignant pleural effusion; I10 Essential (primary) hypertension; F41.9 Anxiety disorder, unspecified; F32.9 Major depressive disorder, single episode, unspecified; K21.9 Gastro-esophageal reflux disease without esophagitis; F17.210 Nicotine dependence, cigarettes, uncomplicated; Z79.52 Long term (current) use of systemic steroids; Z79.899 Other long term (current) drug therapy; Z90.13 Acquired absence of bilateral breasts and nipples; Z85.3 Personal history of malignant neoplasm of breast; Z92.21 Personal history of antineoplastic chemotherapy

== ENCOUNTER → 2018-05-26 | Outpatient (CLI) | payer OTHER | LOC: M CLY 13:59 | DX: J90 Pleural effusion, not elsewhere classified (principal); R05 Cough; R06.02 Shortness of breath | CPT/HCPCS: 71046 ==

== ENCOUNTER → 2018-06-03 | Outpatient (CLI) | payer OTHER ==
[~2018-06-03] MED LIST: ACET1TAB55 PO; CYMB60CA3 PO; D32000CA PO; DOXY-346 PO; IBRA125C PO; LETR2.5T2 PO; LORA1TAB12 PO; NORCOTAB PO; PRED10TA2 PO; PROAAER10 INH; RANI150T PO; [UNRECOGNIZED DRUG - CODE] PO
--- NOTE | 2018-06-03 15:25 | REP ---
Chest two views HISTORY: Pleural effusion Comparison: 05/31/2018 Patchy density is present in the left lower lobe consistent with atelectasis or infiltrate unchanged compared to the previous study. A left pleural effusion is present unchanged compared to the previous study. The right lung is clear. The heart is normal in size. The pulmonary vasculature is normal in appearance. The bony structure is intact. The patient is status post left chest tube removal. There is no pneumothorax. IMPRESSION: 1. Left lower lobe atelectasis or infiltrate unchanged compared to the previous study. 2. Left pleural effusion unchanged compared to the previous study. Electronically Signed by Ian Alanis MD 06/03/2018 03:16 P
== END ==
LOC: M RAD 12:46
PROVIDERS: ATTEND Internal Medicine Medical Oncology
DX: J90 Pleural effusion, not elsewhere classified (principal)

== ENCOUNTER → 2018-06-09 | Outpatient (CLI) | payer OTHER ==
--- NOTE | 2018-06-09 09:10 | REP ---
Clinical: History of for malignant pleural effusion. Technique: PA and lateral. Comparison: 05/31/2018. Findings: Left sided pleuroparenchymal changes including scattered atelectasis primarily involving the lingula as well as minimally thickened fissure and pleural thickening is appreciated, but overall appearance appears improved as compared to prior examination. Trace right basilar atelectasis and possible small right pleural effusion are also identified. Impression: Bilateral pleuroparenchymal changes as described above but improved as compared to prior examination. Electronically Signed by Brandyn Chau MD 06/09/2018 09:02 A
== END ==
LOC: M SMT 08:38
PROVIDERS: ATTEND Thoracic Surgery (Cardiothoracic Vascular Surgery)
DX: C50.919 Malignant neoplasm of unspecified site of unspecified female breast (principal); J91.0 Malignant pleural effusion

== ENCOUNTER → 2018-07-19 | Outpatient (REF) | payer OTHER ==
[~2018-07-19] MED LIST changes: +IBRA100C PO; +LEVA1TAB2 PO; +MELA1LIQ2 PO
[2018-07-19 19:04] LABS: HEMATOCRIT 26.3 % (36.0-47.0); HEMOGLOBIN 8.5 g/dl (12.0-15.5); MEAN CORPUSCULAR HEMOGLOBIN 30.5 pg (27.0-33.0); MEAN CORPUSCULAR HGB CONC 32.3 g/dl (32.0-36.5); MEAN CORPUSCULAR VOLUME 94.3 fl (80.0-96.0); RED BLOOD COUNT 2.79 10^6/uL (4.00-5.40); WHITE BLOOD COUNT 2.5 10^3/uL (4.0-10.0)
[2018-07-19 19:26] LABS: ALBUMIN 3.4 GM/DL (3.2-5.2); ALT/SGPT 17 U/L (12-78); BILIRUBIN,TOTAL 0.4 MG/DL (0.2-1.0); BLOOD UREA NITROGEN 12 MG/DL (7-18); CALCIUM LEVEL 8.8 MG/DL (8.5-10.1); CARBON DIOXIDE LEVEL 27 MEQ/L (21-32); CHLORIDE LEVEL 102 MEQ/L (98-107); CPK CREATINE PHOSPHOKINASE 43 U/L (26-192); CREATININE FOR GFR 0.52 MG/DL (0.55-1.30); GLOMERULAR FILTRATION RATE > 60.0 (>51); GLUCOSE, FASTING 93 MG/DL (70-100); POTASSIUM SERUM 3.9 MEQ/L (3.5-5.1); SODIUM LEVEL 136 MEQ/L (136-145); TOTAL PROTEIN 7.2 GM/DL (6.4-8.2)
[2018-07-19 19:53] LABS: PLATELET COUNT, AUTOMATED 26 10^3/uL (150-450)
[2018-07-19 20:03] LABS: ATYPICAL LYMPH 4 % (0-5); BASOPHILS 1 % (0-4); EOSINOPHILS 1 % (0-5); HYPOCHROMASIA 1+; LYMPHOCYTES 45 % (16-52); MONOCYTES 3 % (0-8); NEUTROPHILS 46 % (35-75); PLATELET ESTIMATE DECREASED (NORMAL)
[2018-07-19 20:06] LABS: ANISOCYTOSIS 1+
== END ==
LOC: M SFHCCLAY 13:46
PROVIDERS: ATTEND Family Medicine
DX: C50.919 Malignant neoplasm of unspecified site of unspecified female breast (principal); M79.10 Myalgia, unspecified site

== ENCOUNTER → 2018-07-19 | Outpatient (CLI) | payer OTHER ==
--- NOTE | 2018-07-20 02:39 | REP ---
Clinical: Breast cancer. Technique: PA and lateral. Comparison: 06/09/2018. Findings: A 6.5 cm mass is now identified at the left lung apex. Pleural thickening and subtle infiltrate at the left lung base appears slightly increased from prior examination. A 3 cm ovoid subpleural mass is identified along the lateral aspect of the right mid lung zone. Impression: New highly suspicious findings detailed above most suggestive of malignancy/metastatic disease.
== END ==
LOC: M CLY 13:59
PROVIDERS: ATTEND Family Medicine
DX: R91.8 Other nonspecific abnormal finding of lung field (principal)

== ENCOUNTER → 2018-08-01 | Outpatient (CLI) | payer OTHER ==
[~2018-08-01] MED LIST changes: +ESCI10TA2 PO; +FASL250I2 IM; +MARI2.5C PO; +TIZA2CAP PO; +ZOFR4TAB16 PO
--- NOTE | 2018-08-01 11:05 | ECHO ---
DATE OF PROCEDURE: 08/01/2018 AGE: 53 GENDER: Female. Height 62 inches. Weight 127 pounds. Body surface area 1.58 m2. Location: Outpatient. REFERRING PHYSICIAN: Dr. Priest INDICATION: Breast cancer - potentially cardiotoxic chemotherapy. MEASUREMENTS 2-D measurements: RV - 2.2 cm LV - 3.6 cm Septum 0.8 cm Posterior wall 0.8 cm Aortic root 2.5 cm LA - 2.8 cm LVEF 75% DOPPLER MEASUREMENTS: AV - 1.35 meters per second LVOT - 1.19 meters per second LVOT - 2.0 cm MV -E 54, A 90, E:A ratio 0.6 Early mitral deceleration time 134 milliseconds E prime 7.3, A prime 9.1, E/E prime ratio 7.4 PV - 0.8 meters per second Pulmonary artery acceleration time 100 milliseconds PASP 37 mmHg IVC - 1.2 cm COMMENTS: Sinus tachycardia without intraventricular conduction disturbance. Somewhat challenging study in light of the patient's body habitus but diagnostically useful information was still obtained. M-mode and two-dimensional echocardiography was performed with pulsed, continuous wave, color flow and tissue Doppler studies. Normal left ventricular size and wall thickness with hyperkinetic wall motion. Normal left atrial size with the degree of LV diastolic dysfunction but currently normal estimated mean left atrial pressure. Normal right heart chamber sizes and motion with current estimated pulmonary arterial pressure upper limits of normal to slightly increased. Normal IVC size, somewhat small with complete respiratory collapse suggestive of a slightly low central venous pressure. Normal appearing and functioning valvular structures. Minuscule (physiologic) pericardial fluid. No apparent intracardiac mass. Normal aortic root size. Comparing today's study with that of April 01, 2016, there did not appear to be a change in cardiac chamber sizes, function, valvular appearance or function. However, her estimated central venous pressure on this time was less, suggestive a degree of volume depletion. Emre Osborne MD [facility]
== END ==
LOC: M CARPUL 09:18
PROVIDERS: ATTEND Internal Medicine Hematology & Oncology
DX: C50.919 Malignant neoplasm of unspecified site of unspecified female breast (principal)

== ENCOUNTER → 2018-08-04 | Outpatient (CLI) | payer OTHER ==
--- NOTE | 2018-08-05 18:52 | REP ---
Radionuclide thyroid scan: The thyroid gland right lobe measures 6.5 cm craniocaudad and is enlarged. The thyroid left lobe measures five point 8 cm craniocaudad and is enlarged. There are no hot or cold foci. Radionuclide thyroid uptake: The 24 our uptake is 20.42%. Normal 24 uptake is 25% - 35%. The studies performed with 380.0 microcuries of I-123. Electronically Signed by Alessandro Martinez MD 08/05/2018 06:43 P
== END ==
LOC: M RAD 09:18
PROVIDERS: ATTEND Internal Medicine Hematology & Oncology
DX: E04.2 Nontoxic multinodular goiter (principal); R00.0 Tachycardia, unspecified
CPT/HCPCS: 78012; A9516

== ENCOUNTER → 2018-09-02 | Outpatient (CLI) | payer OTHER ==
[~2018-09-02] MED LIST changes: +LEXA1TAB2 PO
[2018-09-02 19:08] LABS: FREE T3 2.9 PG/ML (2.2-4.0); FREE T4 1.3 NG/DL (0.76-1.46); THYROID STIMULATING HORMONE 0.061 uIU/ML (0.358-3.740)
== END ==
LOC: M SMT 14:56
PROVIDERS: ATTEND Internal Medicine Endocrinology, Diabetes & Metabolism
DX: E05.00 Thyrotoxicosis with diffuse goiter without thyrotoxic crisis or storm (principal)

== ENCOUNTER → 2018-10-07 | Outpatient (CLI) | payer OTHER ==
[~2018-10-07] MED LIST changes: +HYDR-3715 PO; +K-TA10TA2 PO; +MECL12.575 PO; -NORCOTAB PO; +VARE1TA PO
--- NOTE | 2018-10-07 12:19 | REP ---
Thyroid sonography: History: Nodules. Comparison radionuclide thyroid scan August 05, 2018. PET/CT June 15, 2018 did not show abnormal thyroid uptake. Comparison ultrasound of the thyroid April 20, 2013 showed bilateral nodules. Sonographic findings: Thyroid isthmus is 0.5 cm in greatest thickness. Right lobe dimensions by ultrasound are 6.4 x 1.9 x 2.0 cm. The left thyroid lobe measures 6.5 x 2.0 x 1.7 cm. The thyroid glandular texture is somewhat heterogeneous. There is a 1.0 x 0.9 x 0.8 cm nodule in the right lobe along with two nodules measuring 0.9 and 0.8 cm in greatest diameter. The left lobe contains a 0.7 x 0.5 x 0.4 cm nodule. This nodule contains one or two calcifications. Impression: Multinodular thyroid. There is no significant change in comparison with the April 20, 2013 prior thyroid sonography. Electronically Signed by Hi Molina MD 10/07/2018 04:41 P
== END ==
LOC: M RAD 10:27
PROVIDERS: ATTEND Internal Medicine Hematology & Oncology
DX: E04.2 Nontoxic multinodular goiter (principal); R00.0 Tachycardia, unspecified

== ENCOUNTER → 2018-10-25 | Outpatient (CLI) | payer OTHER ==
[~2018-10-25] MED LIST changes: +EXEM25TA PO; +K-TA1TAB PO
--- NOTE | 2018-10-26 10:42 | REP ---
PET/CT: History: Restaging left upper outer quadrant breast malignancy. The patient is status post bilateral mastectomy and reconstruction, left breast and axillary radiation therapy, and chemotherapy. Comparisons: Comparison PET/CT studies are dated June 15, 2018 and April 01, 2016. TECHNIQUE: 54 minutes following the intravenous injection of a 9.64 mCi dose of F-18 FDG, three-dimensional PET scintigraphy is acquired from the skull base to the proximal thighs. Triplanar noncontrast CT scanning is acquired through the same anatomic range for attenuation correction, and image registration with scan parameters optimized to minimize radiation exposure to the patient. PET scintigraphy and CT datasets were fused and displayed on a workstation with multiplanar and projection display capability. PET/CT Findings: There is evidence of significant improvement since the prior study of June 15, 2018. There is still extensive left pleural hypermetabolic uptake although SUV values have declined since the prior study. These range now from 3.27 up to 8.35, previously SUV values were in the 20s. There is less extensive left pleural uptake. There is no evidence of left or right pleural effusion. There is one right pleural nodule with maximum standard uptake value 2.25. There is improvement on the right as well. No new focus of hypermetabolic uptake is seen. No skeletal hypermetabolic uptake is observed. Impression: Extensive pleural uptake particularly on the left with significant decrease in extent and decreased in avidity. No new hypermetabolic uptake focus is seen. Electronically Signed by Hi Molina MD 10/26/2018 01:40 P
== END ==
LOC: M PLARAD 14:27
PROVIDERS: ATTEND Internal Medicine Hematology & Oncology
DX: C50.412 Malignant neoplasm of upper-outer quadrant of left female breast (principal); Z90.12 Acquired absence of left breast and nipple; Z92.21 Personal history of antineoplastic chemotherapy; Z92.3 Personal history of irradiation
CPT/HCPCS: 78815; A9552

== ENCOUNTER → 2018-11-10 | Outpatient (CLI) | payer OTHER ==
--- NOTE | 2018-11-10 13:59 | REP ---
Clinical: Pelvic pain . Technique: Transabdominal pelvic ultrasound followed by transvaginal examination for better evaluation of the endometrium and adnexa. Findings: Bladder is unremarkable and measures 9.0 x 9.1 x 6.9 cm . Heterogeneous anteverted uterus measures 5.6 x 1.5 x 3.3 cm . The endometrial complex measures 2.6 mm thickness. No discrete uterine or endometrial abnormalities are appreciated. Ovaries were not identified on either transabdominal or transvaginal imaging. No pelvic fluid or adnexal mass lesion appreciated. Impression: 1. Essentially normal appearing age-appropriate uterus. 2. Ovaries not visualized. 3. No pelvic fluid or adnexal mass lesion. Electronically Signed by Brandyn Chau MD 11/10/2018 01:50 P
== END ==
LOC: M RAD 11:45
PROVIDERS: ATTEND Internal Medicine Hematology & Oncology
DX: D64.9 Anemia, unspecified (principal)

== ENCOUNTER → 2018-11-21 | Outpatient (CLI) | payer OTHER ==
[~2018-11-21] MED LIST changes: +CBD OIL; +PROHANCE 279.3MG/ML 15ML VIAL (A9576) As Ordered ONE
--- NOTE | 2018-11-21 14:12 | REP ---
MR BRAIN WITHOUT AND WITH CONTRAST: HISTORY: Breast carcinoma. Scattered punctate areas of increased signal intensity on T2-weighted images are present in the periventricular and subcortical white matter. This represents small vessel ischemic disease. There is no intraparenchymal hemorrhage, infarct, mass, or midline shift. There is no abnormal enhancement. The ventricular system is normal in appearance. The cortical sulci are dilated consistent with minimal volume loss. There is no extracerebral collection. The sinuses are clear. IMPRESSION: 1. Minimal small vessel ischemic disease. 2. Minimal volume loss. Electronically Signed by Ian Alanis MD 11/21/2018 02:27 P
== END ==
LOC: M RAD 10:57
PROVIDERS: ATTEND Internal Medicine Hematology & Oncology
DX: C50.919 Malignant neoplasm of unspecified site of unspecified female breast (principal); I67.82 Cerebral ischemia
CPT/HCPCS: 70553; A9576

== ENCOUNTER → 2019-02-08 | Outpatient (CLI) | payer OTHER ==
[~2019-02-08] MED LIST changes: -FASL250I2 IM; +FULV250S IM; +HEMP EXTRACT SL; +IBRA75CA PO; +LEXA1TAB PO; +NORC1TAB7 PO; -PROHANCE 279.3MG/ML 15ML VIAL (A9576) As Ordered ONE
--- NOTE | 2019-02-09 06:12 | ECGEPIP ---
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
== END ==
LOC: M EKG 15:03
PROVIDERS: ATTEND Anesthesiology
DX: Z01.818 Encounter for other preprocedural examination (principal); C34.90 Malignant neoplasm of unspecified part of unspecified bronchus or lung

== ENCOUNTER → 2019-02-09 | Outpatient (CLI) | payer OTHER ==
[~2019-02-09] MED LIST changes: +MACR50CA10 PO
[2019-02-16 08:06] LABS: METANEPHRINE PLASMA 44 pg/mL (0-62); NORMETANEPHRINE PLASMA 121 pg/mL (0-145)
== END ==
LOC: M LAB 07:54
PROVIDERS: ATTEND Internal Medicine Endocrinology, Diabetes & Metabolism
DX: D35.00 Benign neoplasm of unspecified adrenal gland (principal)

== ENCOUNTER 2019-02-10 10:50 | Day surgery (SDC) | payer OTHER ==
[~2019-02-10] VITALS: Ht 154.9 cm; Wt 59.3 kg
[~2019-02-10 10:50] MED LIST changes: +BUPIVACAINE HCL 0.25% 30 ML VIAL As Ordered ONE; -LORA1TAB12 PO; +LORA1TAB4 PO; +LR 1,000 ML IV ONE; -MACR50CA10 PO; -MECL12.575 PO; +MECL12.589 PO; -NORC1TAB7 PO
[2019-02-10] MEDS ORDERED: METOCLOPRAMIDE INJ 10MG/2ML VIAL (J2765) As Ordered ONE (12:14)
[2019-02-10] MEDS ORDERED: ONDANSETRON 4MG/2ML VIAL (J2405) As Ordered ONE (12:14)
[2019-02-10] MEDS ORDERED: KETOROLAC 60 MG/2 ML VIAL (J1885) As Ordered ONE (12:14)
[2019-02-10] MEDS ORDERED: LIDOCAINE 2% INJ 100 MG/5 ML SDV (FOR ANES.) As Ordered ONE (12:14)
[2019-02-10] MEDS ORDERED: ROCURONIUM BROMIDE 50 MG/5 ML VIAL As Ordered ONE (12:14)
[2019-02-10] MEDS ORDERED: dexameTHASONE 4 MG/ML 1ML VIAL (J1100) As Ordered ONE (12:14)
[2019-02-10] MEDS ORDERED: propofoL 200 MG/20 ML VIAL As Ordered ONE (12:14)
[2019-02-10] MEDS ORDERED: MIDAZOLAM INJ 2 MG/2 ML VIAL (J2250) As Ordered ONE (12:15)
[2019-02-10] MEDS ORDERED: fentaNYL 250 MCG/5 ML INJECTION (J3010) As Ordered ONE (12:15)
[2019-02-10] MEDS ORDERED: NORC1TAB7 PO (12:57)
[2019-02-10] MEDS ORDERED: LR 1,000 ML IV SCH (13:00)
[2019-02-10] MEDS ORDERED: PERCOCET 5MG/325MG TAB PO PRN (13:00)
[2019-02-10] MEDS ORDERED: NORCO, ANEXSIA 5/325MG TABLET (HYDROcodone/ACETAMINOPHEN) PO PRN ×2 (13:00→13:15)
[2019-02-10] MEDS ORDERED: ONDANSETRON 4MG/2ML VIAL (J2405) IV PRN (13:00)
[2019-02-10] MEDS ORDERED: fentaNYL 100 MCG/2 ML INJECTION (J3010) IV PRN (13:00)
[2019-02-10] MEDS ORDERED: METOCLOPRAMIDE INJ 10MG/2ML VIAL (J2765) IV PRN (13:00)
[2019-02-10] MEDS: MEPERIDINE INJ 25 MG/ML VIAL (J2175) IV PRN ×2 (13:25→13:30)
[2019-02-10 15:06] VITALS: BP 133/63
--- NOTE | 2019-02-10 21:06 | RO ---
DATE OF PROCEDURE: 02/10/2019 PREPROCEDURE DIAGNOSIS: Metastatic breast cancer. POSTPROCEDURE DIAGNOSIS: Metastatic breast cancer. PROCEDURE: Bilateral salpingo-oophorectomy, laparoscopic. SURGEON: Ian Rand MD PHYSICIAN EXECUTIVE: ANESTHESIA: General endotracheal. ESTIMATED BLOOD LOSS: 10 mL. URINE OUTPUT: 30 mL. FINDINGS: Normal pelvis including the uterus, fallopian tubes and ovaries. Normal upper abdomen including liver, stomach, intestines. DESCRIPTION OF PROCEDURE: The patient was taken to the operating room where general endotracheal anesthesia was induced. She was prepped and draped in a sterile fashion in the dorsal lithotomy position. Burnett catheter was placed. A sponge stick was placed in the vagina to use as a manipulator. A periumbilical incision was made with a scalpel. A Veress needle was placed through this incision while tenting up on the skin of the abdomen. Intraabdominal location of the Veress needle was assessed by the use of a saline-filled syringe. Pneumoperitoneum was created. The Veress needle was removed. 11 mm trocar using Visiport was inserted through this incision, 10 mm scope with camera was used to visualize the abdomen and pelvis with findings noted above. Two 5 mm suprapubic ports were placed under direct visualization. Fimbriated end of the right fallopian tube was elevated. A LigaSure bipolar instrument was used to coagulate and incise the IP ligaments as well as broad ligament attachments to the ovary. The fallopian tubes and utero-ovarian ligaments were transected near their origins. The same was performed on the opposite side. Both ovaries were removed through the umbilical port. The pneumoperitoneum was released. All instruments were removed. Sponge, instrument and needle counts were correct. The skin was closed with #4-0 Monocryl subcuticular sutures. The patient was extubated and went to the recovery room.
[2019-02-17] MEDS ORDERED: MACR50CA10 PO (13:46)
[2019-02-20] MEDS ORDERED: MACR50CA10 PO (15:21)
[2019-03-21] MEDS ORDERED: ZOFR4TAB16 PO (13:11)
[2019-04-21] MEDS ORDERED: VERZ150T PO (13:11)
[2019-04-21] MEDS ORDERED: VERZ100T PO (13:14)
[2019-05-30] MEDS ORDERED: [UNRECOGNIZED DRUG - CODE] PO (13:43)
[2019-05-30] MEDS ORDERED: ZOFR4TAB16 PO (14:41)
[2019-07-04] MEDS ORDERED: VERZ150T PO (10:41)
== END 2019-02-10 15:06 | disposition home or self-care (01) ==
LOC: M SDC 10:50
PROVIDERS: ATTEND Specialist
DX: Z40.02 Encounter for prophylactic removal of ovary(s) (principal); Z40.03 Encounter for prophylactic removal of fallopian tube(s); Z17.0 Estrogen receptor positive status [ER+]; E05.90 Thyrotoxicosis, unspecified without thyrotoxic crisis or storm; F41.9 Anxiety disorder, unspecified; F17.210 Nicotine dependence, cigarettes, uncomplicated; Z92.3 Personal history of irradiation; Z92.21 Personal history of antineoplastic chemotherapy; Z85.3 Personal history of malignant neoplasm of breast; Z85.118 Personal history of other malignant neoplasm of bronchus and lung; F32.9 Major depressive disorder, single episode, unspecified; D64.9 Anemia, unspecified; Z79.899 Other long term (current) drug therapy
CPT/HCPCS: 58661; 88302; J1100; J1885; J2175; J2250; J2405; J2765; J3010

== ENCOUNTER → 2019-02-18 | Outpatient (CLI) | payer OTHER ==
[~2019-02-18] MED LIST changes: -BUPIVACAINE HCL 0.25% 30 ML VIAL As Ordered ONE; +LORA1TAB12 PO; -LORA1TAB4 PO; -LR 1,000 ML IV ONE; +MACR50CA10 PO; +MECL12.575 PO; -MECL12.589 PO; +NORC1TAB7 PO
[2019-02-18 15:39] LABS: FREE T4 1.2 NG/DL (0.76-1.46); THYROID STIMULATING HORMONE 0.283 uIU/ML (0.358-3.740)
[2019-02-22 14:15] LABS: DEHYDROEPIANDROSTERONE SULFATE 87.9 ug/dL (41.2-243.7)
== END ==
LOC: M WUC 10:33
PROVIDERS: ATTEND Internal Medicine Endocrinology, Diabetes & Metabolism
DX: E05.00 Thyrotoxicosis with diffuse goiter without thyrotoxic crisis or storm (principal)

== ENCOUNTER → 2019-03-28 | Outpatient (REF) | payer OTHER ==
[2019-03-28 16:09] LABS: CREATININE, URINE 44.8 MG/DL
== END ==
LOC: M LAB REF 14:00
PROVIDERS: ATTEND Internal Medicine Endocrinology, Diabetes & Metabolism
DX: D35.00 Benign neoplasm of unspecified adrenal gland (principal)

== ENCOUNTER → 2019-04-11 | Outpatient (CLI) | payer OTHER ==
[~2019-04-11] MED LIST changes: +VERZ100T PO; +VERZ150T PO
== END ==
LOC: M PLARAD 09:16
PROVIDERS: ATTEND Internal Medicine Hematology & Oncology
DX: C50.412 Malignant neoplasm of upper-outer quadrant of left female breast (principal); Z53.9 Procedure and treatment not carried out, unspecified reason

== ENCOUNTER → 2019-04-12 | Outpatient (CLI) | payer OTHER ==
[~2019-04-12] MED LIST changes: -VERZ100T PO; -VERZ150T PO
--- NOTE | 2019-04-12 15:55 | REP ---
PET/CT: History: Restaging left breast carcinoma. The patient is status post left breast malignancy diagnosed in 2016 status post bilateral mastectomy, adjuvant chemotherapy, and radiation therapy of the left breast, chest wall, and left axillary region. Comparisons: Comparison PET/CT studies are reviewed from June 15, 2018, April 01, 2016, and October 25, 2018. TECHNIQUE: The examination was initially scheduled for March 2019. At the time of this appointment, the injection was extravasated. 8.17 mCi was administered however distribution of tracer was inhibited by the extravasation and the exam could not be accomplished. It was rescheduled for the following day at my request. On 12 April 2019, 49 minutes following the intravenous injection of a 8.54 mCi dose of F-18 FDG, three-dimensional PET scintigraphy is acquired from the skull base to the proximal thighs. Triplanar noncontrast CT scanning is acquired through the same anatomic range for attenuation correction, and image registration with scan parameters optimized to minimize radiation exposure to the patient. PET scintigraphy and CT datasets were fused and displayed on a workstation with multiplanar and projection display capability. PET/CT Findings: There is evidence of recurrent progressive multinodular pleural hypermetabolic disease throughout the left hemithorax essentially circumferentially. This is most extensive and essentially confluent in the left lower hemithorax where maximum standard uptake value ranges up to 19.92. In the more superior and mid left hemithorax there are multifocal smaller nodules which are hypermetabolic along the pleural surface. Standard uptake values range from 7-14.48. There is no definite hilar or mediastinal adenopathy. There is a small zone of pleural thickening at the major fissure laterally on the right where maximum standard uptake value is 2.98. This is slightly hypermetabolic. There is a mildly hypermetabolic subcentimeter nodule along the pleural surface of the right upper lobe adjacent to the middle mediastinum where maximum standard uptake value is 5.17. There is some minimal non-hypermetabolic pleural-based nodularity along the right lower lobe. There is a tiny subcentimeter nodule in the right lower lobe. No other pulmonary nodule is seen. Head and neck soft tissues are unremarkable. In the abdomen and pelvis there is no abnormal hypermetabolic uptake. A stable left adrenal adenoma is seen. Impression: There is evidence of progressive pleural involvement on the left compared to the most recent prior PET/CT. Minimal pleural disease is suspected on the right. Electronically Signed by Hi Molina MD 04/12/2019 05:24 P
== END ==
LOC: M PLARAD 09:46
PROVIDERS: ATTEND Internal Medicine Hematology & Oncology
DX: C50.412 Malignant neoplasm of upper-outer quadrant of left female breast (principal); Z90.13 Acquired absence of bilateral breasts and nipples; Z92.21 Personal history of antineoplastic chemotherapy; Z92.3 Personal history of irradiation; D35.02 Benign neoplasm of left adrenal gland; R91.8 Other nonspecific abnormal finding of lung field
CPT/HCPCS: 78815; A9552

== ENCOUNTER → 2019-07-18 | Outpatient (CLI) | payer OTHER ==
[~2019-07-18] MED LIST changes: -LORA1TAB12 PO; +LORA1TAB4 PO; -MECL12.575 PO; +MECL12.589 PO; +OPIU1TIN6 PO; +QUES4POW PO; +VERZ100T PO; +VERZ150T PO; +[UNRECOGNIZED DRUG - CODE] PO
--- NOTE | 2019-07-19 08:35 | REP ---
Whole body PET CT scan for follow up staging of left breast carcinoma: Comparison is the most recent prior PET scan dated 04/12/2019. Whole-body scanning is performed from skull base to the upper thighs. Neck and supraclavicular areas: There are no hypermetabolic foci. This is unchanged. Chest: There are multiple confluent foci in the left hemithoracic pleura, particularly inferiorly in the left hemithorax. This has not significantly changed in appearance on the PET scan. However, the maximal standard uptake value today is 10.34. The maximal standard manner previously was 19.9. Additionally, on the CT accompanying the PET scan, the pleural thickening in the left hemithorax previously is no longer present. There are no other foci in the chest. There are bilateral breast implants. This is unchanged. There are surgical clips in the left axilla. This is unchanged. Abdomen, pelvis and upper thighs: There are no hypermetabolic foci. There is a 2.5 cm left adrenal nodule. This is unchanged in size. However, on the CT accompanying the PET scan, the CT density are of this nodule has increased, today measuring [address] density of this nodule previously was - 3.[address] nod[address] density above 10 HU is considered suspicious. However, the standard uptake value in this adrenal nodule today is borderline hypermetabolic measuring 3.1. The standard uptake value previously was 2.85. Impression: There is no change in the pattern or size of the hypermetabolic foci in the in the left nadya thoracic pleura . However, the standard uptake value has decreased. On the accompanying CT scan, the pleural thickening in the left hemithorax that was identified previously is no longer present. There is a left adrenal nodule, unchanged in size but has increased in radiodensity. Radiodensity of this nodule is now suspicious however, the nodule demonstrates borderline hypermetabolic uptake. The study is performed with 8.74 millicuries of F 18 FDG. Electronically Signed by Alessandro Martinez MD 07/19/2019 08:26 A
== END ==
LOC: M PLARAD 12:09
PROVIDERS: ATTEND Internal Medicine Hematology
DX: C50.412 Malignant neoplasm of upper-outer quadrant of left female breast (principal); Z98.82 Breast implant status; E27.9 Disorder of adrenal gland, unspecified
CPT/HCPCS: 78815; A9552

== ENCOUNTER → 2019-07-27 | Outpatient (CLI) | payer OTHER ==
[~2019-07-27] MED LIST changes: +D3 22000 PO
--- NOTE | 2019-07-27 09:49 | REP ---
Clinical: Right kumar pain. Technique: AP and lateral views of the right tibia / fibula. Findings: Osseous structures, joint spaces, and surrounding soft tissues are normal. Impression: Normal examination. Electronically Signed by Brandyn Chau MD 07/27/2019 09:41 A
== END ==
LOC: M CLY 09:18
PROVIDERS: ATTEND Nurse Practitioner Family
DX: M79.661 Pain in right lower leg (principal)

== ENCOUNTER → 2019-09-28 | Outpatient (REF) | payer OTHER ==
[2019-09-28 16:23] LABS: BASO % 0.7 % (0.0-1.0); EOS % 0.5 % (0.0-3.0); HEMATOCRIT 30.4 % (36.0-47.0); LYMPH # 1.6 10^3/uL (1.5-5.0); LYMPH % 39.7 % (24.0-44.0); MEAN CORPUSCULAR HEMOGLOBIN 37.6 pg (27.0-33.0); MEAN CORPUSCULAR HGB CONC 32.9 g/dl (32.0-36.5); MONO # 0.3 10^3/uL (0.0-0.8); MONO % 6.7 % (0.0-5.0); NEUTROPHILS # 2.1 10^3/uL (1.5-8.5); NEUTROPHILS % 52.2 % (36.0-66.0); RED BLOOD COUNT 2.66 10^6/uL (4.00-5.40)
[2019-09-28 16:24] LABS: MEAN CORPUSCULAR VOLUME 114.3 fl (80.0-96.0)
[2019-09-28 16:25] LABS: PLATELET COUNT, AUTOMATED 54 10^3/uL (150-450)
[2019-09-28 16:34] LABS: ALBUMIN 3.8 GM/DL (3.2-5.2); ALT/SGPT 15 U/L (12-78); BILIRUBIN,TOTAL 0.3 MG/DL (0.2-1.0); BLOOD UREA NITROGEN 10 MG/DL (7-18); CALCIUM LEVEL 9.4 MG/DL (8.5-10.1); CARBON DIOXIDE LEVEL 29 MEQ/L (21-32); CHLORIDE LEVEL 102 MEQ/L (98-107); CREATININE FOR GFR 0.75 MG/DL (0.55-1.30); GLOMERULAR FILTRATION RATE > 60.0 (>51); GLUCOSE, FASTING 91 MG/DL (70-100); POTASSIUM SERUM 4.2 MEQ/L (3.5-5.1); SODIUM LEVEL 135 MEQ/L (136-145); TOTAL PROTEIN 7.7 GM/DL (6.4-8.2)
[2019-09-29 08:53] LABS: CA19-9 TUMOR MARKER,CARBOHYDRA < 1.2 U/ML (<35.0)
[2019-09-29 10:13] LABS: CA15-3 ANTIGEN 264.9 U/ML (<32.4)
== END ==
LOC: M LABDRAWC 16:01
PROVIDERS: ATTEND Internal Medicine Hematology
DX: C50.919 Malignant neoplasm of unspecified site of unspecified female breast (principal)

== ENCOUNTER → 2019-09-28 | Outpatient (REF) | payer OTHER ==
[2019-09-28 16:33] LABS: FREE T4 1.05 NG/DL (0.76-1.46); THYROID STIMULATING HORMONE 0.47 uIU/ML (0.358-3.740)
== END ==
LOC: M LABDRAWC 15:59
PROVIDERS: ATTEND Internal Medicine Endocrinology, Diabetes & Metabolism
DX: E05.00 Thyrotoxicosis with diffuse goiter without thyrotoxic crisis or storm (principal)

== ENCOUNTER → 2019-10-13 | Outpatient (REF) | payer OTHER | LOC: M LABDRAWC 15:46 | PROVIDERS: ATTEND Internal Medicine Endocrinology, Diabetes & Metabolism | DX: E28.0 Estrogen excess (principal); Z19.1 Hormone sensitive malignancy status ==

== ENCOUNTER → 2019-10-13 | Outpatient (REF) | payer OTHER ==
[2019-10-13 16:27] LABS: BASO % 0.5 % (0.0-1.0); EOS % 0.9 % (0.0-3.0); HEMATOCRIT 30.3 % (36.0-47.0); HEMOGLOBIN 9.8 g/dl (12.0-15.5); LYMPH # 1.5 10^3/uL (1.5-5.0); MEAN CORPUSCULAR HEMOGLOBIN 37.5 pg (27.0-33.0); MEAN CORPUSCULAR HGB CONC 32.3 g/dl (32.0-36.5); MONO # 0.3 10^3/uL (0.0-0.8); MONO % 5.8 % (0.0-5.0); NEUTROPHILS # 2.5 10^3/uL (1.5-8.5); NEUTROPHILS % 58.3 % (36.0-66.0); RED BLOOD COUNT 2.61 10^6/uL (4.00-5.40); WHITE BLOOD COUNT 4.3 10^3/uL (4.0-10.0)
[2019-10-13 16:29] LABS: MEAN CORPUSCULAR VOLUME 116.1 fl (80.0-96.0); PLATELET COUNT, AUTOMATED 53 10^3/uL (150-450)
[2019-10-13 16:31] LABS: ALBUMIN 3.5 GM/DL (3.2-5.2); ALT/SGPT 15 U/L (12-78); BILIRUBIN,TOTAL 0.3 MG/DL (0.2-1.0); BLOOD UREA NITROGEN 10 MG/DL (7-18); CALCIUM LEVEL 9.4 MG/DL (8.5-10.1); CARBON DIOXIDE LEVEL 27 MEQ/L (21-32); CHLORIDE LEVEL 103 MEQ/L (98-107); CREATININE FOR GFR 0.66 MG/DL (0.55-1.30); GLOMERULAR FILTRATION RATE > 60.0 (>51); GLUCOSE, FASTING 80 MG/DL (70-100); POTASSIUM SERUM 4.2 MEQ/L (3.5-5.1); SODIUM LEVEL 135 MEQ/L (136-145); TOTAL PROTEIN 7.3 GM/DL (6.4-8.2)
[2019-10-13 17:05] LABS: CA19-9 TUMOR MARKER,CARBOHYDRA < 1.2 U/ML (<35.0)
[2019-10-13 17:16] LABS: CA15-3 ANTIGEN 188.6 U/ML (<32.4)
== END ==
LOC: M LABDRAWC 15:49
PROVIDERS: ATTEND Internal Medicine Hematology
DX: C50.912 Malignant neoplasm of unspecified site of left female breast (principal)

== ENCOUNTER → 2019-11-10 | Outpatient (REF) | payer OTHER ==
[2019-11-10 16:17] LABS: BASO % 0.3 % (0.0-1.0); HEMATOCRIT 28.9 % (36.0-47.0); HEMOGLOBIN 9.5 g/dl (12.0-15.5); LYMPH # 1.2 10^3/uL (1.5-5.0); LYMPH % 32.3 % (24.0-44.0); MEAN CORPUSCULAR HGB CONC 32.9 g/dl (32.0-36.5); MONO # 0.4 10^3/uL (0.0-0.8); MONO % 9.6 % (0.0-5.0); NEUTROPHILS # 2.2 10^3/uL (1.5-8.5); NEUTROPHILS % 56.3 % (36.0-66.0); WHITE BLOOD COUNT 3.8 10^3/uL (4.0-10.0)
[2019-11-10 16:23] LABS: MEAN CORPUSCULAR VOLUME 115.6 fl (80.0-96.0); PLATELET COUNT, AUTOMATED 54 10^3/uL (150-450)
[2019-11-10 17:33] LABS: ALBUMIN 3.5 GM/DL (3.2-5.2); ALT/SGPT 16 U/L (12-78); BILIRUBIN,TOTAL 0.3 MG/DL (0.2-1.0); BLOOD UREA NITROGEN 8 MG/DL (7-18); CA15-3 ANTIGEN 170.5 U/ML (<32.4); CA19-9 TUMOR MARKER,CARBOHYDRA < 1.2 U/ML (<35.0); CALCIUM LEVEL 9.1 MG/DL (8.5-10.1); CARBON DIOXIDE LEVEL 28 MEQ/L (21-32); CHLORIDE LEVEL 104 MEQ/L (98-107); CREATININE FOR GFR 0.71 MG/DL (0.55-1.30); GLOMERULAR FILTRATION RATE > 60.0 (>51); GLUCOSE, FASTING 83 MG/DL (70-100); POTASSIUM SERUM 4.7 MEQ/L (3.5-5.1); SODIUM LEVEL 136 MEQ/L (136-145); TOTAL PROTEIN 7.4 GM/DL (6.4-8.2)
== END ==
LOC: M LABDRAWC 15:44
PROVIDERS: ATTEND Internal Medicine Hematology
DX: C50.912 Malignant neoplasm of unspecified site of left female breast (principal)

== ENCOUNTER → 2019-11-27 | Outpatient (REF) | payer OTHER ==
[~2019-11-27] MED LIST changes: +LEVO500T3 PO
[2019-11-28 13:30] LABS: APPEARANCE, URINE HAZY (CLEAR); BACTERIA, URINE AUTO NEGATIVE (NEGATIVE); BILIRUBIN, URINE AUTO NEGATIVE (NEGATIVE); BLOOD, URINE BLOOD 2+ (NEGATIVE); COLOR, URINE YELLOW (YELLOW); GLUCOSE, URINE (UA) AUTO NEGATIVE (NEGATIVE); KETONE, URINE AUTO NEGATIVE (NEGATIVE); LEUKOCYTE ESTERASE, URINE AUTO 2+ (NEGATIVE); MUCUS, URINE SMALL (NEGATIVE); NITRITE, URINE AUTO NEGATIVE (NEGATIVE); PROTEIN, URINE AUTO 2+ mg/dL (NEGATIVE); RBC, URINE AUTO 17 /HPF (0-3); SPECIFIC GRAVITY URINE AUTO 1.015 (1.002-1.035); SQUAMOUS EPITHELIAL CELL UR AU 0 /HPF (0-6); UROBILINOGEN, URINE AUTO 0.2 mg/dL (0.0-2.0); WBC, URINE AUTO 165 /HPF (0-3)
== END ==
LOC: M SFHCCLAY 14:42
PROVIDERS: ATTEND Nurse Practitioner Family
DX: R35.0 Frequency of micturition (principal)

== ENCOUNTER → 2019-11-27 | Outpatient (REF) | payer OTHER ==
[~2019-11-27] MED LIST changes: +ACET-683 PO; +AMOX500C PO; +ATIV1TAB10 PO; +D31000TA2 PO; +ESCI10TA16 PO; -ESCI10TA2 PO; +GABA-1171 PO; +LOPE-39 PO; -MECL12.589 PO; +MECL12.590 PO; +PEPC1TAB5 PO; +[UNRECOGNIZED DRUG - CODE] PO; +[UNRECOGNIZED DRUG - OTHER] PO
[2019-11-28 13:47] LABS: BASO % 0.2 % (0.0-1.0); EOS % 0.6 % (0.0-3.0); HEMATOCRIT 27.6 % (36.0-47.0); LYMPH # 1.5 10^3/uL (1.5-5.0); LYMPH % 32.5 % (24.0-44.0); MEAN CORPUSCULAR HEMOGLOBIN 37.5 pg (27.0-33.0); MEAN CORPUSCULAR HGB CONC 32.6 g/dl (32.0-36.5); MONO # 0.3 10^3/uL (0.0-0.8); MONO % 6.2 % (0.0-5.0); NEUTROPHILS # 2.8 10^3/uL (1.5-8.5); NEUTROPHILS % 60.3 % (36.0-66.0); WHITE BLOOD COUNT 4.7 10^3/uL (4.0-10.0)
[2019-11-28 13:49] LABS: PLATELET COUNT, AUTOMATED 44 10^3/uL (150-450)
== END ==
LOC: M LABDRAWC 11:57
PROVIDERS: ATTEND Internal Medicine Hematology & Oncology
DX: C50.919 Malignant neoplasm of unspecified site of unspecified female breast (principal)

== ENCOUNTER → 2019-12-19 | Outpatient (CLI) | payer OTHER ==
[~2019-12-19] MED LIST changes: -AMOX500C PO; -D31000TA2 PO; -ESCI10TA16 PO; +ESCI10TA2 PO; -GABA-1171 PO; +MECL12.589 PO; -MECL12.590 PO; -[UNRECOGNIZED DRUG - CODE] PO
--- NOTE | 2019-12-20 09:58 | REP ---
REASON FOR EXAM: History of breast carcinoma. All priors were reviewed, the latest of which is dated 12/16/2019. After the intravenous administration of 8.07 millicuries of FDG-18, triplane whole body PET-CT was performed from the skull base to the mid thigh. There is abnormal hypermetabolic activity seen in the left anterior chest wall with SUV values 2.87 maximal. There is extensive abnormal hypermetabolic activity seen in the pleural refections bilaterally left greater than right. On the right, the SUV values range from 2.7 to 3.19 and on the left the SUV values are as high as 10.46. These abnormal hypermetabolic foci are seen predominantly in the lower thoracic regions. There is abnormal hypermetabolic activity seen in the gluteal subcutaneous region bilaterally likely secondary to subcutaneous injection sites. Abnormal hypermetabolic activity is now seen in the left adrenal gland nodule with SUV value 2.81 maximally. No other abnormal hypermetabolic foci are seen in the neck, chest, abdomen, or pelvis. IMPRESSION: 1. Once again, there is rather extensive abnormal hypermetabolic activity seen in the left hemithoracic pleural reflections. This is essentially unchanged, however, there is now evidence of new hypermetabolic activity seen in the right hemithoracic mid and particularly lower pleural reflections as described above. 2. There is new hypermetabolic activity seen in the left anterior chest wall subjacent to the superior margin of the left breast implant. 3. The left adrenal gland nodule is hypermetabolic suspicious for metastatic disease as described above. 4. Hypermetabolic activity is seen in the subcutaneous gluteal region bilaterally as described above. Electronically Signed by Jaret Malhotra DO 12/20/2019 05:18 P
== END ==
LOC: M PLARAD 11:21
PROVIDERS: ATTEND Internal Medicine Medical Oncology
DX: R93.89 Abnormal findings on diagnostic imaging of other specified body structures (principal); C50.811 Malignant neoplasm of overlapping sites of right female breast; C50.812 Malignant neoplasm of overlapping sites of left female breast
CPT/HCPCS: 78815; A9552

== ENCOUNTER → 2020-02-07 | Outpatient (REF) | payer OTHER ==
[2020-02-07 17:55] LABS: BASO % 0.5 % (0.0-1.0); EOS % 0.8 % (0.0-3.0); HEMATOCRIT 30.4 % (36.0-47.0); HEMOGLOBIN 10.1 g/dl (12.0-15.5); LYMPH # 1.4 10^3/uL (1.5-5.0); LYMPH % 35.4 % (24.0-44.0); MEAN CORPUSCULAR HEMOGLOBIN 36.3 pg (27.0-33.0); MEAN CORPUSCULAR HGB CONC 33.2 g/dl (32.0-36.5); MEAN CORPUSCULAR VOLUME 109.4 fl (80.0-96.0); MONO # 0.2 10^3/uL (0.0-0.8); NEUTROPHILS # 2.2 10^3/uL (1.5-8.5); RED BLOOD COUNT 2.78 10^6/uL (4.00-5.40); WHITE BLOOD COUNT 3.8 10^3/uL (4.0-10.0)
[2020-02-07 17:58] LABS: ALBUMIN 3.4 GM/DL (3.2-5.2); ALT/SGPT 14 U/L (12-78); BILIRUBIN,TOTAL 0.3 MG/DL (0.2-1.0); BLOOD UREA NITROGEN 9 MG/DL (7-18); CALCIUM LEVEL 9.2 MG/DL (8.5-10.1); CARBON DIOXIDE LEVEL 29 MEQ/L (21-32); CHLORIDE LEVEL 105 MEQ/L (98-107); CREATININE FOR GFR 0.79 MG/DL (0.55-1.30); GLOMERULAR FILTRATION RATE > 60.0 (>51); GLUCOSE, FASTING 84 MG/DL (70-100); POTASSIUM SERUM 3.8 MEQ/L (3.5-5.1); SODIUM LEVEL 138 MEQ/L (136-145); TOTAL PROTEIN 7.1 GM/DL (6.4-8.2)
[2020-02-07 18:18] LABS: PLATELET COUNT, AUTOMATED 65 10^3/uL (150-450)
[2020-02-07 18:35] LABS: CA19-9 TUMOR MARKER,CARBOHYDRA < 1.2 U/ML (<35.0)
[2020-02-07 18:50] LABS: CA15-3 ANTIGEN 154.2 U/ML (<32.4)
== END ==
LOC: M LABDRAWC 11:45
PROVIDERS: ATTEND Internal Medicine Hematology
DX: C50.919 Malignant neoplasm of unspecified site of unspecified female breast (principal)

== ENCOUNTER → 2020-02-21 | Outpatient (REF) | payer OTHER ==
[~2020-02-21] MED LIST changes: -MECL12.589 PO; +MECL12.590 PO
[2020-02-21 19:39] LABS: BASO % 1.1 % (0.0-1.0); EOS % 1.1 % (0.0-3.0); HEMATOCRIT 32.4 % (36.0-47.0); HEMOGLOBIN 10.3 g/dl (12.0-15.5); LYMPH # 1.1 10^3/uL (1.5-5.0); LYMPH % 29.8 % (24.0-44.0); MEAN CORPUSCULAR HEMOGLOBIN 35.3 pg (27.0-33.0); MEAN CORPUSCULAR HGB CONC 31.8 g/dl (32.0-36.5); MONO # 0.3 10^3/uL (0.0-0.8); MONO % 7.5 % (0.0-5.0); NEUTROPHILS # 2.3 10^3/uL (1.5-8.5); NEUTROPHILS % 60.2 % (36.0-66.0); RED BLOOD COUNT 2.92 10^6/uL (4.00-5.40); WHITE BLOOD COUNT 3.7 10^3/uL (4.0-10.0)
[2020-02-21 19:43] LABS: PLATELET COUNT, AUTOMATED 70 10^3/uL (150-450)
[2020-02-22 07:41] LABS: ALBUMIN 3.4 GM/DL (3.2-5.2); ALT/SGPT 16 U/L (12-78); BILIRUBIN,TOTAL 0.3 MG/DL (0.2-1.0); BLOOD UREA NITROGEN 10 MG/DL (7-18); CALCIUM LEVEL 9.2 MG/DL (8.5-10.1); CARBON DIOXIDE LEVEL 27 MEQ/L (21-32); CHLORIDE LEVEL 104 MEQ/L (98-107); CREATININE FOR GFR 0.65 MG/DL (0.55-1.30); GLOMERULAR FILTRATION RATE > 60.0 (>51); GLUCOSE, FASTING 84 MG/DL (70-100); POTASSIUM SERUM 4.1 MEQ/L (3.5-5.1); SODIUM LEVEL 135 MEQ/L (136-145); TOTAL PROTEIN 7.3 GM/DL (6.4-8.2)
[2020-02-22 12:53] LABS: CA19-9 TUMOR MARKER,CARBOHYDRA < 1.2 U/ML (<35.0)
[2020-02-22 14:18] LABS: CA15-3 ANTIGEN 242.9 U/ML (<32.4)
== END ==
LOC: M LABDRAWC 17:21
PROVIDERS: ATTEND Internal Medicine Hematology
DX: C50.919 Malignant neoplasm of unspecified site of unspecified female breast (principal)

== ENCOUNTER → 2020-02-21 | Outpatient (REF) | payer OTHER | LOC: M LABDRAWC 17:19 | PROVIDERS: ATTEND Internal Medicine Medical Oncology | DX: R30.0 Dysuria (principal) ==

== ENCOUNTER → 2020-03-05 | Outpatient (CLI) | payer OTHER ==
[~2020-03-05] MED LIST changes: +MECL12.589 PO; -MECL12.590 PO
--- NOTE | 2020-03-12 13:27 | REP ---
PET CT HISTORY: Restaging of left breast carcinoma. COMPARISON: Made with prior PET CTs, two most recent which are from 12/19/2019 and 07/18/2019. TECHNIQUE: 45 minutes following intravenous injection of an 8.02 mCi dose of F18 fluorodeoxyglucose (FDG), three-dimensional PET CT imaging is acquired from the skull base to the proximal thighs. PET CT FINDINGS: Multifocal hypermetabolic pleural deposits are again noted in the left and right pleural space, left more numerous than right. Generally, these foci are similar in size to the most recent prior study of 12/19/2019. Maximum standard uptake value ranges in these deposits up to 4.19 in the mid and upper lung malave. The most extensive and most hyperactive deposits are in the left lower pleural gutter posteriorly and anterolaterally where a maximum standard uptake value ranges up to 7.09. There is stable minimal uptake in the left adrenal gland, 2.38. No definitely new focus is seen. There is some soft tissue uptake behind the prosthesis in the left chest wall, unchanged from prior study. No soft tissue mass is seen here. No definite bony disease is seen. IMPRESSION: Extensive bilateral pleural uptake consistent with pleural metastatic disease. Essentially unchanged from the most recent prior study of December 2019. MTDD
== END ==
LOC: M PLARAD 12:31
PROVIDERS: ATTEND Internal Medicine Medical Oncology
DX: C50.412 Malignant neoplasm of upper-outer quadrant of left female breast (principal)
CPT/HCPCS: 78815; A9552

== ENCOUNTER → 2020-03-06 | Outpatient (REF) | payer OTHER ==
[2020-03-06 16:09] LABS: BASO % 0.6 % (0.0-1.0); EOS % 0.9 % (0.0-3.0); HEMATOCRIT 32.7 % (36.0-47.0); HEMOGLOBIN 10.6 g/dl (12.0-15.5); LYMPH # 1.5 10^3/uL (1.5-5.0); LYMPH % 30.9 % (24.0-44.0); MEAN CORPUSCULAR HEMOGLOBIN 35.2 pg (27.0-33.0); MEAN CORPUSCULAR HGB CONC 32.4 g/dl (32.0-36.5); MEAN CORPUSCULAR VOLUME 108.6 fl (80.0-96.0); MONO # 0.4 10^3/uL (0.0-0.8); MONO % 7.9 % (0.0-5.0); NEUTROPHILS # 2.8 10^3/uL (1.5-8.5); NEUTROPHILS % 59.5 % (36.0-66.0); RED BLOOD COUNT 3.01 10^6/uL (4.00-5.40); WHITE BLOOD COUNT 4.7 10^3/uL (4.0-10.0)
[2020-03-06 16:10] LABS: PLATELET COUNT, AUTOMATED 72 10^3/uL (150-450)
[2020-03-06 16:45] LABS: ALBUMIN 3.4 GM/DL (3.2-5.2); ALT/SGPT 16 U/L (12-78); BILIRUBIN,TOTAL 0.3 MG/DL (0.2-1.0); BLOOD UREA NITROGEN 13 MG/DL (7-18); CALCIUM LEVEL 9.6 MG/DL (8.5-10.1); CARBON DIOXIDE LEVEL 27 MEQ/L (21-32); CHLORIDE LEVEL 105 MEQ/L (98-107); CREATININE FOR GFR 0.79 MG/DL (0.55-1.30); GLOMERULAR FILTRATION RATE > 60.0 (>51); GLUCOSE, FASTING 85 MG/DL (70-100); SODIUM LEVEL 138 MEQ/L (136-145); TOTAL PROTEIN 7.3 GM/DL (6.4-8.2)
[2020-03-06 17:34] LABS: CA15-3 ANTIGEN 175.9 U/ML (<32.4)
== END ==
LOC: M LABDRAWC 15:50
PROVIDERS: ATTEND Internal Medicine Medical Oncology
DX: C50.919 Malignant neoplasm of unspecified site of unspecified female breast (principal)

== ENCOUNTER → 2020-04-03 | Outpatient (REF) | payer OTHER ==
[2020-04-03 17:17] LABS: EOS # 0.1 10^3/uL (0.0-0.5); EOS % 1.3 % (0.0-3.0); HEMOGLOBIN 10.6 g/dl (12.0-15.5); LYMPH # 1.5 10^3/uL (1.5-5.0); LYMPH % 36.3 % (24.0-44.0); MEAN CORPUSCULAR HGB CONC 32.1 g/dl (32.0-36.5); MEAN CORPUSCULAR VOLUME 108.9 fl (80.0-96.0); MONO # 0.3 10^3/uL (0.0-0.8); MONO % 7.8 % (0.0-5.0); NEUTROPHILS # 2.1 10^3/uL (1.5-8.5); NEUTROPHILS % 53.1 % (36.0-66.0); RED BLOOD COUNT 3.03 10^6/uL (4.00-5.40)
[2020-04-03 17:19] LABS: PLATELET COUNT, AUTOMATED 68 10^3/uL (150-450)
[2020-04-03 17:26] LABS: ALBUMIN 3.6 GM/DL (3.2-5.2); ALT/SGPT 12 U/L (12-78); BILIRUBIN,TOTAL 0.3 MG/DL (0.2-1.0); BLOOD UREA NITROGEN 10 MG/DL (7-18); CALCIUM LEVEL 9.9 MG/DL (8.5-10.1); CARBON DIOXIDE LEVEL 30 MEQ/L (21-32); CHLORIDE LEVEL 105 MEQ/L (98-107); GLOMERULAR FILTRATION RATE > 60.0 (>51); GLUCOSE, FASTING 84 MG/DL (70-100); POTASSIUM SERUM 4.3 MEQ/L (3.5-5.1); SODIUM LEVEL 137 MEQ/L (136-145); TOTAL PROTEIN 7.5 GM/DL (6.4-8.2)
[2020-04-04 09:24] LABS: CA15-3 ANTIGEN 151.3 U/ML (<32.4)
== END ==
LOC: M LABDRAWC 16:10
PROVIDERS: ATTEND Internal Medicine Medical Oncology
DX: C50.919 Malignant neoplasm of unspecified site of unspecified female breast (principal)

== ENCOUNTER → 2020-04-30 | Outpatient (REF) | payer OTHER ==
[2020-05-01 12:46] LABS: BASO % 0.7 % (0.0-1.0); HEMATOCRIT 31.3 % (36.0-47.0); HEMOGLOBIN 9.9 g/dl (12.0-15.5); LYMPH # 1.3 10^3/uL (1.5-5.0); LYMPH % 32.3 % (24.0-44.0); MEAN CORPUSCULAR HEMOGLOBIN 35.2 pg (27.0-33.0); MEAN CORPUSCULAR HGB CONC 31.6 g/dl (32.0-36.5); MEAN CORPUSCULAR VOLUME 111.4 fl (80.0-96.0); MONO # 0.2 10^3/uL (0.0-0.8); MONO % 5.3 % (0.0-5.0); NEUTROPHILS # 2.5 10^3/uL (1.5-8.5); NEUTROPHILS % 60.5 % (36.0-66.0); RED BLOOD COUNT 2.81 10^6/uL (4.00-5.40); WHITE BLOOD COUNT 4.1 10^3/uL (4.0-10.0)
[2020-05-01 12:52] LABS: PLATELET COUNT, AUTOMATED 45 10^3/uL (150-450)
[2020-05-01 13:24] LABS: ALBUMIN 3.6 GM/DL (3.2-5.2); ALT/SGPT 12 U/L (12-78); BILIRUBIN,TOTAL 0.3 MG/DL (0.2-1.0); BLOOD UREA NITROGEN 8 MG/DL (7-18); CALCIUM LEVEL 9.5 MG/DL (8.5-10.1); CARBON DIOXIDE LEVEL 28 MEQ/L (21-32); CHLORIDE LEVEL 104 MEQ/L (98-107); CREATININE FOR GFR 0.97 MG/DL (0.55-1.30); GLOMERULAR FILTRATION RATE > 60.0 (>51); GLUCOSE, FASTING 141 MG/DL (70-100); POTASSIUM SERUM 4.3 MEQ/L (3.5-5.1); SODIUM LEVEL 138 MEQ/L (136-145); TOTAL PROTEIN 7.2 GM/DL (6.4-8.2)
[2020-05-01 13:45] LABS: CA19-9 TUMOR MARKER,CARBOHYDRA < 1.2 U/ML (<35.0)
[2020-05-01 13:56] LABS: CA15-3 ANTIGEN 157.5 U/ML (<32.4)
== END ==
LOC: M LABDRAWC 11:10
PROVIDERS: ATTEND Internal Medicine Medical Oncology
DX: C50.919 Malignant neoplasm of unspecified site of unspecified female breast (principal)

== ENCOUNTER → 2020-05-08 | Outpatient (REF) | payer OTHER ==
[2020-05-08 16:33] LABS: BASO % 0.7 % (0.0-1.0); EOS # 0.1 10^3/uL (0.0-0.5); EOS % 1.4 % (0.0-3.0); HEMOGLOBIN 9.6 g/dl (12.0-15.5); LYMPH # 1.4 10^3/uL (1.5-5.0); LYMPH % 32.4 % (24.0-44.0); MEAN CORPUSCULAR HEMOGLOBIN 35.8 pg (27.0-33.0); MEAN CORPUSCULAR VOLUME 111.9 fl (80.0-96.0); MONO # 0.4 10^3/uL (0.0-0.8); MONO % 9.1 % (0.0-5.0); NEUTROPHILS # 2.3 10^3/uL (1.5-8.5); NEUTROPHILS % 56.2 % (36.0-66.0); RED BLOOD COUNT 2.68 10^6/uL (4.00-5.40); WHITE BLOOD COUNT 4.2 10^3/uL (4.0-10.0)
[2020-05-08 16:34] LABS: PLATELET COUNT, AUTOMATED 48 10^3/uL (150-450)
== END ==
LOC: M LABDRAWC 16:02
PROVIDERS: ATTEND Internal Medicine Medical Oncology
DX: C50.919 Malignant neoplasm of unspecified site of unspecified female breast (principal)

== ENCOUNTER → 2020-05-24 | Outpatient (REF) | payer OTHER ==
[~2020-05-24] MED LIST changes: +AMOX500C PO; +D31000TA2 PO; -MECL12.589 PO; +MECL12.590 PO; +[UNRECOGNIZED DRUG - CODE] PO
[2020-05-24 16:30] LABS: BASO % 0.5 % (0.0-1.0); EOS # 0.1 10^3/uL (0.0-0.5); EOS % 1.4 % (0.0-3.0); HEMATOCRIT 30.7 % (36.0-47.0); HEMOGLOBIN 9.9 g/dl (12.0-15.5); LYMPH # 1.5 10^3/uL (1.5-5.0); LYMPH % 34.2 % (24.0-44.0); MEAN CORPUSCULAR HEMOGLOBIN 35.9 pg (27.0-33.0); MEAN CORPUSCULAR HGB CONC 32.2 g/dl (32.0-36.5); MEAN CORPUSCULAR VOLUME 111.2 fl (80.0-96.0); MONO # 0.4 10^3/uL (0.0-0.8); MONO % 8.5 % (0.0-5.0); NEUTROPHILS # 2.3 10^3/uL (1.5-8.5); NEUTROPHILS % 55.2 % (36.0-66.0); RED BLOOD COUNT 2.76 10^6/uL (4.00-5.40); WHITE BLOOD COUNT 4.2 10^3/uL (4.0-10.0)
[2020-05-24 17:12] LABS: PLATELET COUNT, AUTOMATED 64 10^3/uL (150-450)
== END ==
LOC: M LABDRAWC 15:55
PROVIDERS: ATTEND Internal Medicine Medical Oncology
DX: C50.919 Malignant neoplasm of unspecified site of unspecified female breast (principal)

== ENCOUNTER → 2020-07-22 | Outpatient (CLI) | payer BC, OTHER ==
[~2020-07-22] MED LIST changes: +ESCI10TA16 PO; -ESCI10TA2 PO; +GABA-1171 PO
--- NOTE | 2020-07-23 10:05 | REP ---
INDICATION: RESTAGING UPPER OUTER QUADRANT LEFT BREAST CA. Status post bilateral mastectomy left axillary lymphadenectomy, chemotherapy, and radiation therapy left axilla. Left pleural metastatic disease. Currently on chemotherapy. COMPARISON: There are multiple prior PET CTs, the most recent which is dated March 05, 2020. December 19, 2019 prior PET-CT is also reviewed.. TECHNIQUE: Fifty-one minutes following the intravenous injection of a 15.20 mCi dose of F-18 FDG, three-dimensional PET scintigraphy is acquired from the skull base to the proximal thighs. Triplanar noncontrast CT scanning is acquired through the same anatomic range for attenuation correction, and image registration with scan parameters optimized to minimize radiation exposure to the patient. PET scintigraphy and CT datasets were fused and displayed on a workstation with multiplanar and projection display capability. FINDINGS: Head and neck soft tissues remain unremarkable. On fortunately, there is evidence of progression in that there is more extensive pleural studding with hypermetabolic foci on the right. Fairly extensive although relatively stable multiple hypermetabolic foci are seen in the left pleural space. Maximum standard uptake value in the most avid pleural deposits in each side of the chest ranges up to 8.0-8.35. There is an infiltrate in the right upper lobe with maximum standard uptake value 5.02. This is similar to the prior study. In the abdomen and pelvis, today's PET-CT study shows 4 new foci of hypermetabolic uptake within the liver. The largest of these new liver lesions is in the left lobe measuring 3.9 cm in greatest diameter. The left adrenal nodule is again seen showing a minimally hypermetabolic uptake essentially unchanged. Maximum SUV value 2.73. There is no other abnormal hypermetabolic uptake in the abdomen or pelvis. IMPRESSION: Today's PET-CT study demonstrates evidence of progressive pleural hypermetabolic soft tissue studding and 4 new hypermetabolic metastatic foci in the liver. <Electronically signed by Davin Molina > 07/23/20 1002
== END ==
LOC: M PLARAD 09:25
PROVIDERS: ATTEND Internal Medicine Medical Oncology
DX: R93.89 Abnormal findings on diagnostic imaging of other specified body structures (principal); C50.412 Malignant neoplasm of upper-outer quadrant of left female breast
CPT/HCPCS: 78815; A9552

== ENCOUNTER → 2020-08-13 | Outpatient (REF) | payer BC, OTHER ==
[~2020-08-13] MED LIST changes: +CAPE1TAB2 PO; +FAMO20TA PO; +MECL-136 PO; -MECL12.590 PO
[2020-08-13 12:13] LABS: HEMATOCRIT 32.3 % (36.0-47.0); HEMOGLOBIN 10.1 g/dl (12.0-15.5); MEAN CORPUSCULAR HEMOGLOBIN 34.5 pg (27.0-33.0); MEAN CORPUSCULAR HGB CONC 31.3 g/dl (32.0-36.5); MEAN CORPUSCULAR VOLUME 110.2 fl (80.0-96.0); PLATELET COUNT, AUTOMATED 121 10^3/uL (150-450); RED BLOOD COUNT 2.93 10^6/uL (4.00-5.40); WHITE BLOOD COUNT 4.4 10^3/uL (4.0-10.0)
[2020-08-13 13:07] LABS: BASOPHILS 2 % (0-1); EOSINOPHILS 2 % (0-3); LYMPHOCYTES 34 % (16-44); MONOCYTES 5 % (0-5); NEUTROPHILS 57 % (28-66); PLATELET ESTIMATE DECREASED (NORMAL)
== END ==
LOC: M LABDRAWC 11:25
PROVIDERS: ATTEND Internal Medicine Medical Oncology
DX: C50.412 Malignant neoplasm of upper-outer quadrant of left female breast (principal); D69.6 Thrombocytopenia, unspecified

== ENCOUNTER 2020-09-26 16:16 | Emergency (ER) | payer BC, OTHER ==
[~2020-09-26] VITALS: Ht 154.9 cm; Wt 50.8 kg
[~2020-09-26 16:16] MED LIST changes: +COVI30VI IM
[2020-09-26] MEDS ORDERED: MORPHINE 4 MG/ML 1ML VIAL/SYRINGE (J2270) IV ONE (19:05)
[2020-09-26] MEDS ORDERED: NS 1,000 ML IV ONE (19:05)
[2020-09-26] MEDS ORDERED: ISOVUE-370 76% 100ML VIAL As Ordered ONE (19:44)
[2020-09-26] MEDS ORDERED: ONDANSETRON 4MG/2ML VIAL IV ONE (20:00)
[2020-09-26 20:03] LABS: HEMOGLOBIN 11.7 g/dl (12.0-15.5); MEAN CORPUSCULAR HEMOGLOBIN 35.8 pg (27.0-33.0); MEAN CORPUSCULAR HGB CONC 33.4 g/dl (32.0-36.5); PLATELET COUNT, AUTOMATED 118 10^3/uL (150-450); RED BLOOD COUNT 3.27 10^6/uL (4.00-5.40); WHITE BLOOD COUNT 3.6 10^3/uL (4.0-10.0)
[2020-09-26 20:15] LABS: INR 1.17; PARTIAL THROMBOPLASTIN TIME 20.3 SECONDS (24.2-38.5); PROTHROMBIN TIME 15.2 SECONDS (12.5-14.3)
[2020-09-26 20:24] LABS: ALBUMIN 3.2 GM/DL (3.2-5.2); ALT/SGPT 19 U/L (12-78); BILIRUBIN,DIRECT 0.1 MG/DL (0.0-0.2); BILIRUBIN,TOTAL 0.4 MG/DL (0.2-1.0); LIPASE 78 U/L (73-393); TOTAL PROTEIN 6.3 GM/DL (6.4-8.2)
--- NOTE | 2020-09-26 20:41 | REPVR ---
PROCEDURE INFORMATION: Exam: CT Abdomen And Pelvis Without Contrast Exam date and time: 09/26/2020 7:55 PM Age: 55 years old Clinical indication: Abdominal pain; Additional info: Llq pain/rlq pain TECHNIQUE: Imaging protocol: Computed tomography of the abdomen and pelvis without contrast. Radiation optimization: All CT scans at this facility use at least one of these dose optimization techniques: automated exposure control; mA and/or kV adjustment per patient size (includes targeted exams where dose is matched to clinical indication); or iterative reconstruction. COMPARISON: PT PET/CT Skull/mid thigh 07/22/2020 11:14 AM FINDINGS: Pleural spaces: Multiple noncalcified pleural plaques the lower lobes including the diaphragmatic pleural surface on the right. Findings may represent metastatic pleural studding. Liver: Hypoattenuating mass in segment 4A of the left lobe of the liver measures 2.3 x 3.7 by 2.5 cm with a slightly hyperdense rim. Several smaller hypoattenuating foci demonstrated in the liver. Findings compatible with metastatic disease. Gallbladder and bile ducts: Normal. No calcified stones. No ductal dilation. Pancreas: Normal. No ductal dilation. Spleen: Normal. No splenomegaly. Adrenal glands: Lobular left adrenal nodule measures 2.7 x 1.9 cm consistent with metastasis. Kidneys and ureters: Normal. No hydronephrosis. Stomach and bowel: Diffuse thickening of the wall of of several small bowel loops in the lower abdomen and pelvis. Differential includes ischemia, infection and inflammatory bowel disease. Appendix: No evidence of appendicitis. Intraperitoneal space: Unremarkable. No free air. No significant fluid collection. Vasculature: The aortoiliac vessels demonstrate mild atherosclerotic calcification. Lymph nodes: Unremarkable. No enlarged lymph nodes. Urinary bladder: Unremarkable as visualized. Reproductive: Unremarkable as visualized. Bones/joints: Unremarkable. No acute fracture. Soft tissues: Status post bilateral mastectomies with breast implant expanders demonstrated. IMPRESSION: 1. Multiple noncalcified pleural plaques the lower lobes including the diaphragmatic pleural surface on the right. Findings may represent metastatic pleural studding. 2. Hypoattenuating mass in segment 4A of the left lobe of the liver measures 2.3 x 3.7 by 2.5 cm with a slightly hyperdense rim. Several smaller hypoattenuating foci demonstrated in the liver. Findings compatible with metastatic disease. 3. Lobular left adrenal nodule measures 2.7 x 1.9 cm consistent with metastasis. 4. Diffuse thickening of the wall of of several small bowel loops in the lower abdomen and pelvis. Differential includes ischemia, infection and inflammatory bowel disease. COMMENTS: Consistent with the [employer]'s Incidental Findings Committee white paper (J Am Guillaume Radiol 2017): For any incidental adrenal lesion greater than 1 cm but less than 4 cm classified in this report as benign, likely benign, or containing fat (including classification as an adenoma or myelolipoma), no follow-up imaging is recommended per consensus recommendations based on imaging criteria. Further lab evaluation could be pursued if warranted based on clinical findings. Electronically signed by: Damir King On 09/26/2020 20:41:30 PM
[2020-09-26 20:43] LABS: ATYPICAL LYMPH 3 % (0-5); LYMPHOCYTES 37 % (16-44); METAMYELOCYTES 1 % (0-0); MONOCYTES 9 % (0-5); NEUTROPHILS 35 % (28-66)
[2020-09-26 20:44] LABS: PLATELET ESTIMATE DECREASED (NORMAL)
[2020-09-26 21:23] LABS: HCG, SERUM QUALITATIVE NEGATIVE (NEGATIVE)
[2020-09-26] MEDS ORDERED: VICO10TA11 PO (21:33)
[2020-09-26] MEDS ORDERED: NORCO, ANEXSIA 5/325MG TABLET (HYDROcodone/ACETAMINOPHEN) PO ONE (21:40)
[2020-09-26] MEDS ORDERED: NORCO 5/325MG TABLET (BULK FOR ED) PO ONE (21:45)
[2020-09-26 22:12] VITALS: BP 133/68
== END 2020-09-26 22:16 | disposition home or self-care (01) ==
LOC: M ED 16:16
DX: K58.0 Irritable bowel syndrome with diarrhea (principal); E86.0 Dehydration; R10.32 Left lower quadrant pain; R11.2 Nausea with vomiting, unspecified; E27.9 Disorder of adrenal gland, unspecified; E05.00 Thyrotoxicosis with diffuse goiter without thyrotoxic crisis or storm; E78.5 Hyperlipidemia, unspecified; K21.9 Gastro-esophageal reflux disease without esophagitis; C50.412 Malignant neoplasm of upper-outer quadrant of left female breast; J91.0 Malignant pleural effusion; D69.6 Thrombocytopenia, unspecified; D64.9 Anemia, unspecified; Z79.899 Other long term (current) drug therapy; F17.200 Nicotine dependence, unspecified, uncomplicated

== ENCOUNTER 2020-10-02 11:17 | Inpatient (IN) | payer BC ==
[~2020-10-02] VITALS: Ht 154.9 cm; Wt 48.9 kg
[~2020-10-02 11:17] MED LIST changes: +VICO10TA11 PO
--- NOTE | 2020-10-02 11:50 | REP ---
INDICATION: SEPSIS/SHOCK COMPARISON: 05/22/2019 TECHNIQUE: Portable AP view of the chest FINDINGS: The mediastinum and cardiac silhouette are stable and within normal limits for portable technique. Vague lower lobe opacities (right greater than left) suggest elements of atelectasis and small right pleural effusion. No pneumothorax. Skeletal structures intact. IMPRESSION: Basilar opacities suggesting atelectasis (right greater than left) and small right pleural effusion. <Electronically signed by Brandyn Chau > 10/02/20 1145
[2020-10-02 12:18] LABS: VENOUS BASE EXCESS -1.5 (-2.0-2.0); VENOUS HCO3 23.3 MEQ/L (23.0-27.0); VENOUS O2 SATURATION 95.8 % (60.0-80.0); VENOUS PARTIAL PRESSURE CO2 39.4 mmHg (38.0-50.0); VENOUS PH 7.389 UNITS (7.330-7.430); VENOUS STANDARD HCO3 23.2 MEQ/L; VENOUS TOTAL CO2 24.5 MEQ/L (24.0-28.0)
[2020-10-02] MEDS: NS 1,000 ML IV SCH ×4 (12:24→23:40)
[2020-10-02 12:37] LABS: HEMATOCRIT 33.7 % (36.0-47.0); HEMOGLOBIN 11.3 g/dl (12.0-15.5); MEAN CORPUSCULAR HEMOGLOBIN 34.5 pg (27.0-33.0); MEAN CORPUSCULAR HGB CONC 33.5 g/dl (32.0-36.5); MEAN CORPUSCULAR VOLUME 102.7 fl (80.0-96.0); RED BLOOD COUNT 3.28 10^6/uL (4.00-5.40); WHITE BLOOD COUNT 2.9 10^3/uL (4.0-10.0)
[2020-10-02 12:47] LABS: INR 1.39; PROTHROMBIN TIME 17.4 SECONDS (12.5-14.3)
[2020-10-02 12:48] LABS: PARTIAL THROMBOPLASTIN TIME 23.4 SECONDS (24.2-38.5)
[2020-10-02 12:54] LABS: ALBUMIN 2.2 GM/DL (3.2-5.2); ALT/SGPT 36 U/L (12-78); AMYLASE 32 U/L (25-115); BILIRUBIN,DIRECT 0.6 MG/DL (0.0-0.2); BILIRUBIN,TOTAL 1.3 MG/DL (0.2-1.0); BLOOD UREA NITROGEN 18 MG/DL (7-18); CALCIUM LEVEL 8.1 MG/DL (8.5-10.1); CARBON DIOXIDE LEVEL 24 MEQ/L (21-32); CHLORIDE LEVEL 90 MEQ/L (98-107); CPK CREATINE PHOSPHOKINASE 235 U/L (26-192); CREATININE FOR GFR 0.52 MG/DL (0.55-1.30); GLOMERULAR FILTRATION RATE > 60.0 (>51); GLUCOSE, FASTING 91 MG/DL (70-100); MB/CK RELATIVE INDEX 0.43 (< OR =4); POTASSIUM SERUM 3.7 MEQ/L (3.5-5.1); SODIUM LEVEL 126 MEQ/L (136-145); TOTAL PROTEIN 5.4 GM/DL (6.4-8.2); TROPONIN I < 0.02 NG/ML (< 0.10)
[2020-10-02 12:55] LABS: PLATELET COUNT, AUTOMATED 87 10^3/uL (150-450)
[2020-10-02] MEDS ORDERED: NS 1,540 ML in IV 1 EA IV ONE (13:05)
[2020-10-02 13:07] LABS: RSV AMPLIFICATION NEGATIVE (NEGATIVE)
[2020-10-02 13:07] LABS: ATYPICAL LYMPH 1 % (0-5); LYMPHOCYTES 26 % (16-44); METAMYELOCYTES 3 % (0-0); MONOCYTES 14 % (0-5); NEUTROPHILS 29 % (28-66); PLATELET ESTIMATE DECREASED (NORMAL)
[2020-10-02] MEDS ORDERED: ISOVUE-370 76% 100ML VIAL As Ordered ONE (13:26)
[2020-10-02] MEDS ORDERED: cefTRIAXone SOD 2 GM in D5W MINI-BAG PLUS 50 ML IV ONE (13:45)
--- NOTE | 2020-10-02 13:57 | REP ---
INDICATION: abd pain COMPARISON: None TECHNIQUE: Axial noncontrast images from the lung bases to the pubic symphysis with coronal and sagittal reformations. This CT examination was performed using the following dose reduction techniques: Automated exposure control, adjustment of mA and/or kv according to the patient's size, and use of iterative reconstruction technique. FINDINGS: Marked predominately fluid-filled dilated small bowel extending to the right lower quadrant where nondilated small bowel is appreciated demonstrating circumferential mucosal thickening. Findings are compatible with element of high-grade bowel obstruction and area of transition within the right lower abdomen. The colon is relatively collapsed/normal. No free air. Small amount of pelvic free fluid noted. The liver demonstrates multiple subtle hypodense lesions with somewhat irregular hyperdense surrounding rims similar to recent prior examination and suspicious for metastatic disease. 2.5 cm solid left adrenal lesion again noted and suspicious for metastatic focus as well. Spleen, pancreas, gallbladder, right adrenal gland and bilateral kidneys are relatively normal by noncontrast evaluation. Pelvis demonstrates normal bladder and age-appropriate uterus/adnexa. Small amount of pelvic free fluid noted. No obvious adenopathy. Skeletal structures demonstrate subtle scattered lytic areas concerning for possible osseous metastases. The lung bases demonstrate scattered airspace disease along with ill-defined areas of consolidation and nodularity primarily involving the right infrahilar lung zone significantly increased from recent prior examination. IMPRESSION: 1. High-grade small bowel obstruction with transition suggested in the right lower abdomen. 2. Hepatic and left adrenal lesions similar to prior examination and highly concerning for metastatic disease. 3. Extensive changes at the lung bases including scattered reticulonodular and subtle innumerable alveolar infiltrates with right infrahilar ill-defined consolidations increased compared to 09/26/2020. 4. Cannot exclude subtle bony lytic metastases. <Electronically signed by Brandyn Chau > 10/02/20 [id number]
--- NOTE | 2020-10-02 13:58 | REP ---
INDICATION: sob. COMPARISON: 05/28/2018 the latest prior which was obtained after the administration of intravenous contrast TECHNIQUE: Standard helical technique without the administration of intravenous contrast FINDINGS: The examination is limited without the administration of intravenous contrast. There is no evidence of gross mediastinal or hilar adenopathy. There are no pleural or pericardial effusions. The imaged upper abdomen shows a large but barely perceptible suspected mixed density lesion in the medial segment of the left lobe of the liver which measures approximately 4.2 cm. This was not present on prior exam. There is no significant change in appearance of the imaged osseous structures. Evaluation of the lung malave shows patchy and reticulonodular densities seen diffusely bilaterally and particularly in the mid and lower lung zones. These have developed since the last exam. There is a new pleural based right upper lobe nodular density seen posteriorly in measuring approximately 1.5 cm in its greatest dimension. IMPRESSION: 1. Abnormal lung field findings as described above. Neoplastic and or infectious etiology. 2. Suspicious liver lesion as described above concerning for hepatic metastasis. 3. Other findings as described above. <Electronically signed by Jaret Malhotra > 10/02/20 [id number]
[2020-10-02] MEDS ORDERED: LORA1TAB4 PO (14:07)
[2020-10-02] MEDS ORDERED: SIME125T PO (14:07)
[2020-10-02] MEDS ORDERED: LEXA1TAB2 PO (14:07)
[2020-10-02] MEDS ORDERED: ONDANSETRON 4MG/2ML VIAL IV PRN (15:10)
--- NOTE | 2020-10-02 15:18 | HPEPDOC ---
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 Patient reported that she with her primary care providers office because of weakness and diarrhea for the last 1 week. Patient reports that her diarrhea has been occurring 1-2 times a day. Patient describes as watery without any evidence of blood. While at the primary cares office. Patient was noted to be hypotensive and tachycardic and was subsequently sent to the emergency room for further evaluation. Upon arrival, patients systolic blood pressure has remained in the 130s to 140s over she has remained tachycardic in the 120s to 130s. Currently patient reports that she has had nausea and vomiting, last episode of vomiting was yesterday, one episode without blood. Patient denies any chest pain. Does report a chronic cough for 2 years, however , over the last 7 days has become more productive. Patient reports abdominal pain one week ago, but reports that this has now resolved. She denies any urinary discomfort. Denies any fevers or chills. She reports that over 1 week duration. She has lost about 10 pounds because of inability to keep down food. 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 Review of Systems: 10 point review of systems complete, all negative otherwise stated in HPI Physical exam: - Vitals: BP [143/68], HR [129], RR [24], Sat [100%NC3L], Temp [99.4F] - General: Lying in bed, Speaking in full sentences, AAOx3 - HEENT: NC, AT, PERRLA - CVS: Tachycardic, +S1S2 - Lungs: Fair air entry bilaterally, No appreciable wheezing / rales / rhonchi - Abdomen: Soft, Non-distended, Non-tender - Extremities: No lower extremity edema, No calf tenderness - Neuro: No focal motor or sensory deficit - Skin: No visible rashes Labs: See below Imaging: CXR 10/02: Basilar opacities suggesting atelectasis (right greater than left) and small right pleural effusion. CT abdomen / pelvis 10/02: 1. High-grade small bowel obstruction with transition suggested in the right lower abdomen. 2. Hepatic and left adrenal lesions similar to prior examination and highly concerning for metastatic disease. 3. Extensive changes at the lung bases including scattered reticulonodular and subtle innumerable alveolar infiltrates with right infrahilar ill-defined consolidations increased compared to 09/26/2020. 4. Cannot exclude subtle bony lytic metastases. CT Chest 10/02: 1. Abnormal lung field findings as described above. Neoplastic and or infectious etiology. 2. Suspicious liver lesion as described above concerning for hepatic metastasis. 3. Other findings as described above. EKG: See below Assessment and Plan: Sepsis - possibly 2/2 pneumonia, possibly 2/2 intra-abdominal etiology - Patient presented to the ER with weakness; and was reported to have hypotension and tachycardia at PCP office - Upon arrival to emergency room, patient was found to have systolics of 130, however, remain tachycardic in 120s to 130s - Physical reveals rhonchi bilaterally - Imaging above noted - Will check UA / urine culture / blood cultures / sputum culture / procalcitonin / MRSA screen / GI panel - Will start Zosyn (re: intra-abdominal coverage / pseudomonal coverage for PNA) - Will c/w aggressive IV fluid hydration based on sepsis bundle Lactic acidosis - Likely 2/2 dehydration and sepsis - Will c/w aggressive IV fluid hydration - Will check repeat lactic acid in 4 hours Suspected small bowel obstruction - Patient reported that one week prior she had abdominal pain - Currently patient reports that she still experiences nausea and vomiting last episode was yesterday and continues to experience diarrhea for the last 7 days - Physical does not reveal any abdominal tenderness - Continue with antibiotics and fluids as stated above - Will consult general surgery for evaluation - Will keep patient strictly nothing by mouth until evaluated by surgery Hyponatremia - likely 2/2 hypotonic hypovolemic etiology - Patient has reported a one-week history of nausea, vomiting and diarrhea after receiving chemotherapy - Will check urine electrolytes, urinalysis - Will start IV fluid hydration Pancytopenia - Likely secondary to chemotherapy - Counts appears similar compared to earlier this month - Will continue to monitor Elevated bilirubin - Will check Liver US to evaluate for gallstones - Will check hepatitis profile - Will c/w antibiotics / fluids as stated above Stage IV metastatic invasive ductal carcinoma of the breast - Dx 03/2016 - Patient has received multiple rounds of chemotherapy in the past - Has received adjuvant radiation therapy - PET scan completed 07/2020 has shown evidence of progressive pleural hypermetabolic soft tissues starting and for new hypermetabolic metastatic foci in the liver - Patient was started on Capecitabine chemotherapy on 08/18/[address] Connors Gastrointestinal prophylaxis - Will start Protonix DVT prophylaxis - Will start TEDs/Sequentials (re: Thrombocytopenia) Code status: - Discussed with patient about her CODE status; she would like to be full code; has requested chest compressions and mechanical ventilation if required Vital Signs Vital Signs Date Time Temp Pulse Resp B/P (MAP) Pulse Ox O2 Delivery O2 Flow Rate FiO2 10/02/20 15:02 131 97 Nasal Cannula 5.0 10/02/20 15:00 123/59 (80) 10/02/20 12:17 30 10/02/20 11:21 99.4 Laboratory Data Labs 24H Laboratory Tests 2 10/02/20 11:55: Neutrophils (%) (Auto) , Nucleated Red Blood Cells % (auto) 0.7H, Neutrophils 29, Band Neutrophils 27H, Lymphocytes (Manual) 26, Monocytes (Manual) 14H, Metamyelocytes 3H, Atypical Lymphocytes 1, Red Blood Cell Morphology NORMAL, Randy telet Estimate DECREASED, Immature Platelet Fraction 10.0H, Blood Gas Bicarbonate Standard 23.2, Venous Blood pH 7.389, Venous Blood Partial Pressure CO2 39.4, Venous Blood Partial Pressure O2 93.0H, Venous Blood Total Carbon Dioxide 24.5, Venous Blood HCO3 23.3, Venous Blood Oxygen Saturation 95.8H, Venous Blood Base Excess -1.5, Anion Gap 12, Glomerular Filtration Rate > 60.0, Lactic Acid Level 4.0*H, Calcium Level 8.1L, Total Bilirubin 1.3H, Direct Bilirubin 0.6H, Aspartate Amino Transf (AST/SGOT) 54H, Alanine Aminotransferase (ALT/SGPT) 36, Alkaline Phosphatase 76, Total Creatine Kinase 235H, Creatine Kinase MB 1.0, Creatine Kinase MB Relative Index 0.43, Troponin I < 0.02, C- Reactive Protein, Quantitative 31.90H, Total Protein 5.4L, Albumin 2.2L, Albumin/Globulin Ratio 0.7L, Amylase Level 32 10/02/20 11:59: Prothrombin Time 17.4H, Prothromb Time International Ratio 1.39, Activated Partial Thromboplast Time 23.4L 10/02/20 12:00: Coronavirus (COVID-19)(PCR) NEGATIVE, Influenza Type A (RT-PCR) NEGATIVE, Influenza Type B (RT-PCR) NEGATIVE, Respiratory Syncytial Virus (PCR) NEGATIVE CBC/BMP Laboratory Tests 10/02/20 11:55 Microbiology Microbiology 10/02/20 Blood Culture, Received Pending 10/02/20 Blood Culture, Received Pending Home Medications Scheduled Capecitabine (Capecitabine) 500 Mg Tablet, 3 TAB PO BID Take 3 tabs by mouth twice daily for 14 days then 7 days off. Cholecalciferol (Vitamin D3) (Vitamin D3) 1,000 Unit Tablet, 1,000 UNITS PO DAILY Escitalopram Oxalate (Lexapro) 20 Mg Tablet, 20 MG PO QHS Famotidine (Famotidine) 20 Mg Tablet, 1 TAB PO BID Ondansetron HCl (Zofran) 4 Mg Tablet, 4 MG PO Q6HP Scheduled PRN Acetaminophen (Acetaminophen) 325 Mg Tab, 650 MG PO Q4H PRN for PAIN Loperamide HCl (Imodium A-D) 2 Mg Capsule, 2 MG PO QID PRN for DIARRHEA Lorazepam (Lorazepam) 1 Mg Tablet, 1 MG PO QHS PRN for SLEEP Meclizine HCl (Meclizine HCl) 12.5 Mg Tablet, 12.5 MG PO DAILY PRN for DIZZINESS Simethicone (Gas-X) 125 Mg Tab.chew, 125 MG PO PCHS PRN for GI UPSET Allergies Coded Allergies: nitrofurantoin (Verified Allergy, Mild, RASH, 12/06/19) oxycodone (Verified Adverse Reaction, Intermediate, N/V, 02/10/19) KHADAR TIMMONS MD Oct 02, 2020 15:18
--- NOTE | 2020-10-02 15:25 | REP ---
INDICATION: Elevted bilirubin COMPARISON: None. TECHNIQUE: Real time perez scale ultrasound examination using curved array transducer. FINDINGS: Liver demonstrates 2 hypoechoic mass lesions in the right lobe measuring 1.9 x 1.4 x 2.3 cm and 2.3 x 1.9 x 2.1 cm suggestive of metastatic disease given the patient's history and known hepatic lesions. Pancreas is incompletely evaluated. The gallbladder is normal. No biliary ductal dilatation is appreciated and the common bile duct measures 3 mm diameter. The right kidney is normal in reniform shape without hydronephrosis and measures 9.9 x 5.1 x 4.4 cm. No ascites in the visualized right upper quadrant. IMPRESSION: Hepatic lesions consistent with the known metastases. <Electronically signed by Brandyn Chau > 10/02/20 0004
[2020-10-02] MEDS: PIPERACILLIN/TAZOBACTAM SOD 3.375 GM in D5W MINI-BAG PLUS 50 ML IV SCH ×2 (17:24→23:41)
[2020-10-02] MEDS: PANTOPRAZOLE 40MG VIAL (C9113 PER 1) IV SCH (17:24)
[2020-10-02 18:00] VITALS: BP 118/57
[2020-10-02 18:37] LABS: APPEARANCE, URINE HAZY (CLEAR); BACTERIA, URINE AUTO NEGATIVE (NEGATIVE); BILIRUBIN, URINE AUTO NEGATIVE (NEGATIVE); BLOOD, URINE BLOOD 1+ (NEGATIVE); COLOR, URINE AMBER (YELLOW); GLUCOSE, URINE (UA) AUTO NEGATIVE (NEGATIVE); KETONE, URINE AUTO 1+ mg/dL (NEGATIVE); LEUKOCYTE ESTERASE, URINE AUTO NEGATIVE (NEGATIVE); MUCUS, URINE SMALL (NEGATIVE); NITRITE, URINE AUTO NEGATIVE (NEGATIVE); PROTEIN, URINE AUTO 2+ mg/dL (NEGATIVE); RBC, URINE AUTO 3 /HPF (0-3); SPECIFIC GRAVITY URINE AUTO 1.029 (1.002-1.035); SQUAMOUS EPITHELIAL CELL UR AU 2 /HPF (0-6); WBC, URINE AUTO 9 /HPF (0-3)
[2020-10-02 18:53] LABS: BLOOD UREA NITROGEN 14 MG/DL (7-18); CALCIUM LEVEL 7.4 MG/DL (8.5-10.1); CARBON DIOXIDE LEVEL 26 MEQ/L (21-32); CHLORIDE LEVEL 94 MEQ/L (98-107); CREATININE FOR GFR 0.37 MG/DL (0.55-1.30); GLOMERULAR FILTRATION RATE > 60.0 (>51); GLUCOSE, FASTING 100 MG/DL (70-100); POTASSIUM SERUM 3.5 MEQ/L (3.5-5.1); SODIUM LEVEL 130 MEQ/L (136-145)
[2020-10-02 19:12] LABS: OSMOLALITY SERUM 267 MOSM/KG (275-295)
[2020-10-02 19:17] LABS: HEPATITIS B SURFACE ANTIGEN NEGATIVE (NEGATIVE)
[2020-10-02 19:44] LABS: HEPATITIS C VIRUS ABY INDEX < 0.0 INDEX (<0.8)
[2020-10-02 19:45] LABS: HEPATITIS B CORE ANTIBODY IGM NEGATIVE (NEGATIVE)
[2020-10-02 19:47] LABS: HEPATITIS A ANTIBODY IGM NEGATIVE (NEGATIVE)
[2020-10-02 20:00] VITALS: BP 114/58
--- NOTE | 2020-10-02 23:51 | CR.PDOC ---
General Surgery Consultation Date of Consultation 10/02/20 History and Physical CONSULT REPORT FOR: Dr. Stephens REASON FOR CONSULTATION: imaging showing small bowel obstruction HISTORY OF PRESENT ILLNESS: I was asked to see Ms. Chowdary was being admitted to the hospitalist service for dehydration, weakness resulting from a week history of abdominal pain, food intolerance, poor appetite, initially nausea and vomiting then according to the patient followed with loose stools about 1-2 times a day. She has a known history of metastatic breast cancer to the pleura as well as to the liver undergoing chemotherapy with capecitabine. Last cycle was on September 21 which was her second cycle. Her symptoms began roughly about 5 days ago. She was seen at her oncologist office complaining of abdominal pain and was referred to the emergency room for workup. She reports that her pain has mostly left lower quadrant, crampy type abdominal pain. She was noted to have some diffuse thickening of the wall of all of the small bowel loops in the lower abdomen and pelvis sort of an enteritis type picture. She was discharged home. At home she continues to have abdominal pain and nausea though minimal vomiting. She actually reports that her pain resolved just about Wednesday or so and has not vomited since yesterday. But throughout this time she has poor oral intake only really taking liquids and doesn't seem to be a lot. She is also reporting loose nonbloody stools almost watery about 1-2 times a day. She denies any associated fevers or chills. Baseline, her tells me before the chemotherapy that she was mobile, ambulating not requiring oxygen at home. She was seen in her primary care doctor's office today was noted to be tachycardic, hypotensive patient was brought into the emergency room via EMS. She was worked up to and imaging today shows a small bowel obstruction-like pattern on her CT abdomen and pelvis. At the time that I saw the patient she was on 5 L of oxygen nasal cannula, short of breath on talking, ill-appearing. Her abdomen is soft and not terribly distended though hypoactive in bowel sounds and has no abdominal tenderness on exam. PAST MEDICAL HISTORY: 1. metastatic breast cancer to pleura, liver possibly adrenal PAST SURGICAL HISTORY: INCLUDES: 1. bialteral mastectomy, axillary dissection with reconstruction 2. bilateral salphingo-oophorectomy (prophylactic) ALLERGIES: Please see below. HOME MEDICATIONS: Please see below. REVIEW OF SYSTEMS: Patient was no vague and asking about her baseline condition. Reported prior to 2 weeks ago before starting her capecitabine chemotherapy and she was ambulatin g, not requiring oxygenation. Denies any fevers or chills. Denies chest pains. Short of breath on speaking, has been very weak the past week or so with her current symptoms, not able to ambulate more than a few steps before being short of breath, needing or requiring a lot of assistance from her . She has not been eating anything solid because of symptoms of nausea, reports she is able to tolerate liquids, water. Denies any dysuria, hematuria. Denies any melena or hematochezia. No associated fevers or chills. PHYSICAL EXAMINATION: VITALS SIGNS: Please see below. GENERAL APPEARANCE: Sick appearing, short of breath on talking. She is appearing the nasal cannula on 5 L with saturations in the mid 90s but clearly using extra diaphragmatic muscles on wheezing, talking and has 2 boss when she talks to catch up with her breathing. SKIN: Warm and dry. HEENT: no obvious enlarged JV. LUNGS: Clear to auscultation bilaterally. No wheezing appreciated. HEART: tachycardic, regular rhytm. ABDOMEN: Abdomen is softly distended, only midly distended, soft, hypoactive bowel sounds. Nontender on palpation. No apparent surgical scars I could see (she had laparoscopic bilateral SPO) No apparent herniations.. EXTREMITIES: Minimal bilateral LE edema ANCILLARIES: . LABORATORY DATA: Please see below. IMAGING STUDIES: [ CT abdomen and pelvis IMPRESSION AND PLAN: small bowel obstruction vs post chemotherapy side effects Patient has been having symptoms of abdominal pain, nausea vomiting as well as diarrhea which are common side gastrointestinal side effects of Capecitabine, . Her last dose was 10 days ago initiated expect that her symptoms should be improving at this point if it was from this. Her imaging initially on September 26 is a more enteritis type picture which could be related to the chemotherapy drugs but on the imaging today has some more obstructive-like pattern though I could not really see any distinct transition point. This was read by our radiologist as a high-grade small bowel obstruction with transition suggested in the right lower abdomen. There is no free air nor doesn't seem to be any threatened bowel. She looks to be very dehydrated with a lot of electrolyte abnormalities such as hyponatremia. Also requiring a good amount of oxygenation and she is a lot short of breath. Initially she was reluctant to get a nasogastric tube. Eventually we were able to persuade her to get one and with initial drainage while 300 mL's of bilious fluid. Will keep the nasogastric tube to try to decompress her abdomen. I will serially follow her and get some follow-up studies to verify whether this obstruction would improve or not by itself. Certainly at this point she does not look like a great candidate for surgery given her shortness of breath. Doesn't seem like she will do well with general anesthesia and may require prolonged ventilation. She was started by the hospitalist on Zosyn which given her immunocompromised state and the possibility of an enteritis type picture is appropriate. I suggest getting some stool samples for possibility of an infection. Otherwise she will need close observation as well as adequate resuscitation, IV fluid hydration. Vital Signs Vital Signs Date Time Temp Pulse Resp B/P (MAP) Pulse Ox O2 Delivery O2 Flow Rate FiO2 10/02/20 20:00 98.3 128 20 114/58 (76) 93 Nasal Cannula 3.0 10/02/20 18:45 50 Laboratory Data Labs 24H Laboratory Tests 2 10/02/20 11:55: Neutrophils (%) (Auto) , Nucleated Red Blood Cells % (auto) 0.7H, Neutrophils 29, Band Neutrophils 27H, Lymphocytes (Manual) 26, Monocytes (Manual) 14H, Met amyelocytes 3H, Atypical Lymphocytes 1, Red Blood Cell Morphology NORMAL, Platelet Estimate DECREASED, Immature Platelet Fraction 10.0H, Blood Gas Bicarbonate Standard 23.2, Venous Blood pH 7.389, Venous Blood Partial Pressure CO2 39.4, Venous Blood Partial Pressure O2 93.0H, Venous Blood Total Carbon Dioxide 24.5, Venous Blood HCO3 23.3, Venous Blood Oxygen Saturation 95.8H, Venous Blood Base Excess -1.5, Anion Gap 12, Glomerular Filtration Rate > 60.0, Lactic Acid Level 4.0*H, Calcium Level 8.1L, Total Bilirubin 1.3H, Direct Bilirubin 0.6H, Aspartate Amino Transf (AST/SGOT) 54H, Alanine Aminotransferase (ALT/SGPT) 36, Alkaline Phosphatase 76, Total Creatine Kinase 235H, Creatine Kinase MB 1.0, Creatine Kinase MB Relative Index 0.43, Troponin I < 0.02, C- Reactive Protein, Quantitative 31.90H, Total Protein 5.4L, Albumin 2.2L, Albumin/Globulin Ratio 0.7L, Amylase Level 32 10/02/20 11:59: Prothrombin Time 17.4H, Prothromb Time International Ratio 1.39, Activated Par tial Thromboplast Time 23.4L 10/02/20 12:00: Coronavirus (COVID-19)(PCR) NEGATIVE, Influenza Type A (RT-PCR) NEGATIVE, Influenza Type B (RT-PCR) NEGATIVE, Respiratory Syncytial Virus (PCR) NEGATIVE 10/02/20 16:25: Lactic Acid Followup at 4 Hours 2.7*H, Procalcitonin 23.77 10/02/20 18:16: Urine Color ES, Urine Appearance HAZY, Urine pH 5.0, Urine Specific Sunflower 1.029, Urine Protein 2+H, Urine Glucose (Auto)(UA) NEGATIVE, Urine Ketones (Auto) 1+H, Urine Blood 1+H, Urine Nitrite NEGATIVE, Urine Bilirubin NEGATIVE, Urine Urobilinogen 4.0H, Urine Leukocyte Esterase (Auto) NEGATIVE, Urine WBC (Auto) 9H, Urine RBC (Auto) 3, Urine Hyaline Casts (Auto) 1, Urine Bacteria (Auto) NEGATIVE, Urine Squamous Epithelial Cells 2, Urine Mucus (Auto) SMALL, Urine Sperm (Auto) 10/02/20 18:17: Anion Gap 10, Glomerular Filtration Rate > 60.0, Osmolality 267L, Calcium Level 7.4L, Hepatitis A IgM Antibody NEGATIVE, Hepatitis B Surface Antigen NEGATIVE, Hepatitis B Core IgM Antibody NEGATIVE, Hepatitis C Antibody Index < 0.0 CBC/BMP Laboratory Tests 10/02/20 11:55 10/02/20 18:17 Microbiology Microbiology 10/02/20 Urine Culture, Received Pending 10/02/20 Blood Culture, Received Pending 10/02/20 Blood Culture, Received Pending Home Medications Scheduled Capecitabine (Capecitabine) 500 Mg Tablet, 3 TAB PO BID Take 3 tabs by mouth twice daily for 14 days then 7 days off. Cholecalciferol (Vitamin D3) (Vitamin D3) 1,000 Unit Tablet, 1,000 UNITS PO DAILY, (Reported) Escitalopram Oxalate (Lexapro) 20 Mg Tablet, 20 MG PO QHS, (Reported) Famotidine (Famotidine) 20 Mg Tablet, 1 TAB PO BID Ondansetron HCl (Zofran) 4 Mg Tablet, 4 MG PO Q6HP Scheduled PRN Acetaminophen (Acetaminophen) 325 Mg Tab, 650 MG PO Q4H PRN for PAIN, (Reported) Loperamide HCl (Imodium A-D) 2 Mg Capsule, 2 MG PO QID PRN for DIARRHEA, (Reported) Lorazepam (Lorazepam) 1 Mg Tablet, 1 MG PO QHS PRN for SLEEP, (Reported) Meclizine HCl (Meclizine HCl) 12.5 Mg Tablet, 12.5 MG PO DAILY PRN for DIZZINESS, (Reported) Simethicone (Gas-X) 125 Mg Tab.chew, 125 MG PO PCHS PRN for GI UPSET, (Reported) Allergies Coded Allergies: nitrofurantoin (Verified Allergy, Mild, RASH, 12/06/19) oxycodone (Verified Adverse Reaction, Intermediate, N/V, 02/10/19) CHIP NGUYEN MD Oct 02, 2020 23:51
[2020-10-03] VITALS (15 sets, daily range): BP systolic 105–129; BP diastolic 52–65
[2020-10-03] MEDS: PIPERACILLIN/TAZOBACTAM SOD 3.375 GM in D5W MINI-BAG PLUS 50 ML IV SCH ×4 (05:12→23:54)
[2020-10-03 06:11] LABS: HEMATOCRIT 23.8 % (36.0-47.0); MEAN CORPUSCULAR HGB CONC 33.6 g/dl (32.0-36.5); MEAN CORPUSCULAR VOLUME 101.3 fl (80.0-96.0); RED BLOOD COUNT 2.35 10^6/uL (4.00-5.40); WHITE BLOOD COUNT 2.9 10^3/uL (4.0-10.0)
[2020-10-03 06:17] LABS: PLATELET COUNT, AUTOMATED 82 10^3/uL (150-450)
[2020-10-03 06:34] LABS: LYMPHOCYTES 14 % (16-44); MONOCYTES 10 % (0-5); NEUTROPHILS 56 % (28-66)
[2020-10-03 06:35] LABS: ANISOCYTOSIS 2+
[2020-10-03 06:36] LABS: BLOOD UREA NITROGEN 14 MG/DL (7-18); CALCIUM LEVEL 7.7 MG/DL (8.5-10.1); CARBON DIOXIDE LEVEL 26 MEQ/L (21-32); CHLORIDE LEVEL 97 MEQ/L (98-107); CREATININE FOR GFR 0.34 MG/DL (0.55-1.30); GLOMERULAR FILTRATION RATE > 60.0 (>51); GLUCOSE, FASTING 93 MG/DL (70-100); MAGNESIUM LEVEL 2.2 MG/DL (1.8-2.4); PLATELET ESTIMATE NORMAL (NORMAL); SODIUM LEVEL 135 MEQ/L (136-145)
--- NOTE | 2020-10-03 08:43 | REP ---
INDICATION: ffup sbo, sob. COMPARISON: Comparison images [id number] chest x-ray and [address] TECHNIQUE: Three views including supine chest and abdomen and cross-table lateral abdomen views. FINDINGS: Supine chest x-ray shows platelike atelectasis in the right mid lung zone and diffusely prominent pulmonary interstitial markings. And NG tube enters the left upper quadrant. There are surgical clips in the left axillary soft tissues and left perihilar soft tissues. Supine and cross-table lateral views the abdomen demonstrate multiple small bowel air-fluid levels in the central abdomen with dilated small bowel loops. Pattern is similar to the CT study from the previous day. There is a small quantity of air in the transverse colon unchanged. There is no evidence of free air on cross-table lateral view. IMPRESSION: Persistent small bowel obstruction pattern. No evidence of free air.. <Electronically signed by Davin Molina > 10/03/20 08
[2020-10-03] MEDS: KCL 10MEQ/100ML SWI (KRUN) 10 MEQ in IV 1 EA IV SCH ×2 (08:52→09:00)
--- NOTE | 2020-10-03 12:42 | ECGEPIP ---
[facility] - ED Test Date: 2020-10-02 Pat Name: GLORIA ARREGUIN Department: Room: - Gender: Female Hospice Home Care Coordinator: jane : 1965 Requested By: Nazanin Calhoun Order Number: [id number] Reading MD: Nazanin Calhoun Measurements Intervals [place] Rate: 126 P: 49 MO: 126 QRS: 61 QRSD: 64 T: 55 QT: 350 QTc: 506 Interpretive Statements Sinus tachycardia NSTTW abnormalities increased rate 02/08/19 Electronically Signed on 10-03-2020 12:42:10 EDT by Nazanin Calhoun
[2020-10-03] MEDS ORDERED: ISOVUE-370 76% 100ML VIAL As Ordered ONE (12:48)
--- NOTE | 2020-10-03 13:01 | IPNPDOC ---
Text Note Date of Service The patient was seen on 10/03/20. NOTE General Surgery Dr Nguyen. The patient is a 55-year-old female admitted with abdominal pain, nausea vomiting and diarrhea. The patient was admitted with SBO versus postchemotherapy side effects. NG tube is in place. Report some improvement in abdominal pain. Patient is currently on a stretcher on her way for imaging. The patient is generally ill-appearing. Tmax 99.5 Heart rate 122, respiratory rate 36, blood pressure 112/55, 98% Venturi mask. Abdomen is soft, distended, no guarding or rebound. NG tube in place. Urine culture, blood culture pending. AXR IMPRESSION: Persistent small bowel obstruction pattern. No evidence of free air. A/P small bowel obstruction vs post chemotherapy side effects. The patient is reviewed and examined as per Dr. Nguyen this morning. Continue NG tube to LIS. NPO Imaging to be reviewed by Dr. Nguyen. IVF 100cc/hr IV Zosyn. Monitor. VS,Fishbone, I+O VS, Fishbone, I+O Laboratory Tests 10/02/20 18:17 10/03/20 05:52 Vital Signs Date Time Temp Pulse Resp B/P (MAP) Pulse Ox O2 Delivery O2 Flow Rate FiO2 10/03/20 12:30 98.0 127 36 115/61 93 Venturi Mask 15.0 50 I&O- Last 24 Hours up to 6 AM 10/03/20 06:00 Intake Total 2450 ml Output Total 650 ml Balance 1800 ml Attending Note Attending Note Patient seen and examined. She reports she is feeling better in terms of the nausea and abdominal distention. She is not having any abdominal pain. Initial output from the nasogastric tube was about 300 but only 100 came out after wards. No bowel movements though she was reporting diarrhea when she came in. She's been afebrile. Overnight she seems to be requiring more oxygen. She tells me she doesn't really feel short of breath. She does have a more voluminous speech no hard to understand and she still pauses here and there to catch her breath. On exam, Breathing still is mildly labored, decreased inspiratory effort, (+) rales on right posterior bases her abdomen remains only mildly distended, nontender on palpation Plan: Clinically improve or she still shows evidence for possible bowel obstruction which are on the follow-up x-ray. Also she seems to be deteriorating some in terms of her breathing. He came in moles enlarged with a baseline albumin of 1.1. I spoke to Dr. Stephens. I suggest we start her on TPN while trying to get her breathing better. I would like to observe the course over the weekend and possibly do a CT enterogram on wednesday is she does not clinically improve. It will be hard to do a full small bowel follow through with her breathing. She will be had great risk for prolonged ventilation if she will need surgery for the bowel obstruction. Continue with the nasogastric tube. She is asking if she can have some cold water and/or ice chips. I am allowing her some ice chips to get her comfortable.. Mali Aparicio Oct 03, 2020 13:01 CHIP NGUYEN MD Oct 03, 2020 15:40
--- NOTE | 2020-10-03 13:17 | REP ---
INDICATION: Hypoxia COMPARISON: None. TECHNIQUE: Axial contrast enhanced images from the thoracic inlet to the upper abdomen using pulmonary embolus technique with multiplanar re-formations. 75 ml Isovue 370 intravenous contrast material administered without complication. This CT examination was performed using the following dose reduction techniques: Automated exposure control, adjustment of mA and/or kv according to the patient's size, and use of iterative reconstruction technique. FINDINGS: Satisfactory enhancement of the pulmonary vasculature is achieved and no filling defects are identified to suggest pulmonary embolus. Further evaluation of the mediastinum demonstrates normal thoracic aorta, heart and pericardium. Bilateral ground-glass opacities and scattered nodular opacities are again appreciated and similar to 10/02/2020. Current examination now demonstrates moderate amounts of right middle lobe and right lower lobe atelectasis. No effusion. No pneumothorax. Tracheobronchial tree is patent. Nasogastric tube is identified extending into the stomach. Limited upper abdomen demonstrates diffuse fatty infiltration to the liver and rim enhancing lesions consistent with metastatic disease. IMPRESSION: No evidence for pulmonary embolus. Suggest continued multifocal pneumonia with new areas of atelectasis/early consolidation involving right middle lobe and right lower lobe. Scattered nodules may also reflect metastatic disease. <Electronically signed by Brandyn Chau > 10/03/20 [id number]
[2020-10-03] MEDS ORDERED: KCL 10MEQ/100ML SWI (KRUN) 10 MEQ in IV 1 EA IV SCH (14:00)
[2020-10-03] MEDS: PANTOPRAZOLE 40MG VIAL (C9113 PER 1) IV SCH (16:11)
--- NOTE | 2020-10-03 16:49 | REP ---
INDICATION: May require TPN. COMPARISON: None. TECHNIQUE: The procedure was performed under the direct supervision of Dr. Molina. The risks and benefits of the procedure were explained to the patient and informed consent was obtained. The right basilic vein was localized using ultrasound guidance. The skin was prepped and draped in a sterile fashion. 2% lidocaine was used as a local anesthetic. Using ultrasound guidance the basilic vein was cannulated and a 0.018 guidewire was inserted and advanced to the SVC using fluoroscopic guidance, and last image hold technology. The needle was removed and a 5.5 Niuean dilator and peel-away sheath was inserted over the guide wire. A 5.5 Niuean dual lumen catheter was cut to length of 35 cm. The dilator was removed and the catheter was inserted over the guide wire with the tip ending in the SVC. The peel-away sheath was removed and the catheter was flushed with heparinized saline as per Hospital protocol. The catheter was affixed to the skin and a sterile dressing was applied. The patient tolerated the procedure well and there were no immediate complications. 0.1 minutes of fluoro time was utilized for this procedure. FINDINGS: None IMPRESSION: PICC line insertion right basilic vein with the tip ending in the SVC. <Electronically signed by Sav Arenas > 10/03/20 4032 <Electronically signed by Davin Molina > 10/03/20 0548
--- NOTE | 2020-10-03 18:46 | IPNPDOC ---
Date Seen The patient was seen on 10/03/20. Progress Note SUBJECTIVE: Gina was seen and examined this morning while lying in bed. Soon to the evening shift yesterday, she was switched from nasal cannula to Venturi mask. She is on a Venturi mask and we entered the room and has just returned from getting an abdominal x-ray obtained. She reports feeling significantly fatigued and dehydrated, and is persistently asking for oral fluids or ice chips. She denies feeling feverish overnight, and also denies any current abdominal pain. She is eager to have her NG tube removed, but understands why it remains in place. She reports passing flatus but has not had a bowel movement since being admitted. She denies any nausea or vomiting. She does not feels significant short of breath nor that she is using extra effort to breathe. She denies any chest pain, chest pressure or palpitations. She was advised of the benefits and risks associated with seen and blood products in the setting of her acutely decreased hemoglobin. She signs the consent form and understands why we are proceeding with transfusion. OBJECTIVE PHYSICAL EXAMINATION: VITAL SIGNS: Please see below. GENERAL: Ill-appearing female. Appears fatigued and in mild discomfort. Responds appropriately to all questions and commands, but voice is somewhat soft. HEENT: Normocephalic, atraumatic. Wearing eyeglasses. Skin of face is somewhat bronze/jaundiced-appearing. Mildly dry mucous membranes. No pharyngeal erythema or exudate appreciated. NG tube in place draining light yellow/green colored fluid. CARDIOVASCULAR: Tachycardic rate, regular rhythm. Normal S1, S2. RESPIRATORY: Wearing Venturi mask. Tachypneic with shallow breathing. Diminished breath sounds throughout with right lower lobe crackles posteriorly. Some intermittent upper respiratory sounds. ABDOMINAL: Soft, mild tenderness of RLQ. Hypoactive bowel sounds throughout with intermittent high-pitched, tinkling sounds appreciated. No rigidity. EXTREMITIES: Bilateral lower extremities free of edema. 2+ radial pulses bilaterally. NEUROLOGICAL: No focal deficits appreciated. Non-dysarthric speech. PSYCHOLOGICAL: Mood seems somewhat depressed. Tired appearing affect. LABORATORY DATA, IMAGING STUDIES, MICROBIOLOGY: Please see below. 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 She had been having weakness, nonbloody diarrhea, and nonbloody emesis prior to presentation. She was cardiac and tachypneic, and found to be septic secondary to pneumonia, pancytopenic, and hyponatremic, with imaging showing a suspected with a small bowel obstruction. She was started on Zosyn with aggressive IV fluid hydration per sepsis bundle. She was made NPO and a nasogastric tube was placed to initially help decompress SBO. #Sepsis- likely secondary to hospital acquired pneumonia and possibly secondary to intra-abdominal etiology -Continues to be tachycardic and tachypneic this morning with CTA performed today showing continued multifocal pneumonia with new areas of early consolidation/atelectasis of the right middle and lower lobes. -She ultimately received over 3 L of fluid resuscitation through this morning and maintained adequate pressures overnight. -Abdominal x-ray today showed persistent SBO pattern. -We are continuing with Zosyn (day #2) for pseudomonal and anaerobic coverage -Urinalysis unremarkable with no growth on culture. Both initial blood cultures drawn yesterday preliminarily showing no growth after 24 hours. MRSA PCR screen negative. Sputum culture has been ordered and yet to be obtained. -Pro calcitonin was significant elevated (23) -Lactic acid trended down from 4 to 2.7 yesterday afternoon. -Fluids stopped with rales appreciated on exam today receiving 2 units of blood. As patient will remain nothing by mouth for an extended time and is getting a PICC line to receive TPN nutrition in the setting of SBO. -Remains on telemetry -Initial C reactive protein elevated at 26.5. Repeat level ordered for tomorrow #Suspected small bowel obstruction in right lower abdomen -Abdominal x-ray today showed pattern consistent with a small bowel obstruction with no free air appreciated. -She remains nothing by mouth with an NG tube placed. She went for a PICC line placement this afternoon. She will likely be nothing by mouth for an extended period of time. -Continuing with Zosyn -Approximately 300 mL removed by NG tube prior to midnight, with 100 mL removed thus far during today's shift. -General surgery service (Dr. Charlton) has been consulted. Plan is to observe patient over the weekend to assess for resolution of bowel obstruction. Small bowel follow-through may be difficult due to her current tachypnea and hypoxia, and there is a possibility for CT enterography on Wednesday. As it relates to possible surgery, she is at significant risk for postsurgical ventilation due to her overall metastatic disease and breathing issues. -Hospitalist service sincerely appreciates Dr. Charlton's continued involvement and recommendations. #Right middle and lower lobe pneumonia, likely hospital associated -Patient has been in multiple medical facilities over the past 2-3 months due to continued care for metastatic disease. -Continuing with Zosyn (day #2) -Pro calcitonin elevated -She is in an immunocompromised state due to current capecitabine chemotherapy treatments -There is also concern for spread of metastatic disease to lungs, as there were visualized nodules scattered throughout on CTA today. -Have added incentive spirometry, Acapella, Mucinex, and as needed Xopenex (in the setting of tachycardia) to break up mucus and improve respirations -She has no diagnosed history of lung disease but is an active smoker (40 yrs). Orders to titrate oxygen down as tolerated as her saturations were 9899 on Venturi mask. #Hypoxia -On the night time nanny, she was switched from nasal cannula to Venturi mask due to saturations of 9092 -Due to tachycardia and tachypnea, a CTA was ordered today to rule out pulmonary embolism. CT results showed no evidence of filling defects/pulmonary embolus and. -Likely secondary to both right middle and lower lobe pneumonia, atelectasis, and likely metastatic spread to lungs #Pancytopenia, likely secondary to current chemotherapy -Her cell counts upon admission yesterday appeared to be where they were earlier this month, but unfortunately, hemoglobin decreased to 8 from 11 today. Patient consented to blood transfusion and type and screen was performed. Patient subsequently was ordered to receive 2 units of PRBCs. -We'll continue to monitor #Hyponatremia, proved -Serum sodium improved to 135 today from 130 status post aggressive IV fluid hydration in the setting of sepsis -This was likely hypotonic hypovolemic hyponatremia secondary to week long GI losses in the form of vomiting and diarrhea after receiving most recent chemotherapy #Hypokalemia -Serum potassium was 3.0 this morning, with magnesium of 2.2. -Two 10 mEq mag runs supplemented #Elevated bilirubin -Initial labs showed bilirubin of 1.3. A liver ultrasound was ordered to assess for possible obstructing gallstones. Liver ultrasound result of this morning with impression showing metastatic spread to liver. Hepatitis panel was unremarkable. #Stage IV metastatic invasive ductal cell carcinoma of the left breast with spread to pleura and liver -She follows with Dr. Connors at the cancer center and was diagnosed in March 2016 -She initially received dose dense chemotherapy and radiation. She then was on immunotherapy for some time, and due to progression of disease to pleura and laura er shown on PET scan 2 months ago (July 2020), she started chemotherapy again on 08/18/20 -CTA today showed findings consistent with metastatic spread to lungs. #Gastrointestinal prophylaxis -Continue with Protonix #DVT prophylaxis: Teds and sequentials in the setting of thrombocytopenia Code status: Full code Disposition: Patient has a poor prognosis. There is a low threshold for tra nsferring patient to the ICU as she maintains her desire to be a full code. An extensive discussion was had between the hospitalist service and the patient's this afternoon. Patient's apprised of likely metastatic spread to lungs and patient's overall poor prognosis. VS, I&O, 24H, [facility] Vital Signs/I&O Vital Signs Date Time Temp Pulse Resp B/P (MAP) Pulse Ox O2 Delivery O2 Flow Rate FiO2 10/03/20 16:41 98.4 115 32 109/55 99 Venturi Mask 12.0 35 I&O- Last 24 Hours up to 6 AM 10/03/20 06:00 Intake Total 2450 ml Output Total 650 ml Balance 1800 ml Laboratory Data 24H LABS Laboratory Tests 2 10/02/20 18:16: Urine Color ES, Urine Appearance HAZY, Urine pH 5.0, Urine Specific [place] 1.029, Urine Protein 2+H, Urine Glucose (Auto)(UA) NEGATIVE, Urine Ketones (Auto) 1+H, Urine Blood 1+H, Urine Nitrite NEGATIVE, Urine Bilirubin NEGATIVE, Urine Urobilinogen 4.0H, Urine Leukocyte Esterase (Auto) NEGATIVE, Urine WBC (A uto) 9H, Urine RBC (Auto) 3, Urine Hyaline Casts (Auto) 1, Urine Bacteria (Auto) NEGATIVE, Urine Squamous Epithelial Cells 2, Urine Mucus (Auto) SMALL, Urine Sperm (Auto) 10/02/20 18:17: Anion Gap 10, Glomerular Filtration Rate > 60.0, Osmolality 267L, Calcium Level 7.4L, Hepatitis A IgM Antibody NEGATIVE, Hepatitis B Surface Antigen NEGATIVE, Hepatitis B Core IgM Antibody NEGATIVE, Hepatitis C Antibody Index < 0.0 10/03/20 05:52: Anion Gap 12, Glomerular Filtration Rate > 60.0, Calcium Level 7.7L, Immature Granulocyte % (Auto) , Neutrophils (%) (Auto) , Nucleated Red Blood Cells % (auto) 0.7H, Neutrophils 56, Band Neutrophils 20H, Lymphocytes (Manual) 14L, Monocytes (Manual) 10H, Anisocytosis 2+, Platelet Estimate NORMAL, Magnesium Level 2.2, C-Reactive Protein, Quantitative 26.50H 10/03/20 11:25: Methicillin-Resist S.aureus DNA PCR NOT DETECTED CBC/BMP Laboratory Tests 10/02/20 18:17 10/03/20 05:52 Microbiology Microbiology 10/02/20 Urine Culture - Final, Complete 10/02/20 Blood Culture - Preliminary, Resulted No growth after 24 hours . All specim... 10/02/20 Blood Culture - Preliminary, Resulted No growth after 24 hours . All specim... GME ATTESTATION GME ATTESTATION My faculty preceptor for this patient encounter was physically present during the encounter and was fully available. All aspects of the patient interview, examination, medical decision making process, and medical care plan development were reviewed and approved by the faculty preceptor. The faculty preceptor is aware and concurs with the plan as stated in the body of this note and will attest to such by his/her cosignature. ATTENDING NOTE I, Des Stephens, have independently examined this patient and performed my own physical exam, as well as reviewed the documentation and edited where necessary. I have discussed in detail with the resident / student the findings and plan of treatment as documented by the resident / student and edited their note. I agree with their findings and treatment plan and have edited their documentation. I will continue to follow the patient during this hospital stay. ZBIGNIEW REAGAN D.O. Oct 03, 2020 18:46 DES STEPHENS MD Oct 04, 2020 07:00
[2020-10-03] MEDS: guaiFENesin ER 600 MG TAB PO SCH (21:14)
[2020-10-04] VITALS: BP 104/54
[2020-10-04 04:00] VITALS: BP 105/54
[2020-10-04] MEDS: PIPERACILLIN/TAZOBACTAM SOD 3.375 GM in D5W MINI-BAG PLUS 50 ML IV SCH ×4 (05:04→23:57)
[2020-10-04 05:33] LABS: HEMATOCRIT 31.3 % (36.0-47.0); MEAN CORPUSCULAR HEMOGLOBIN 33.1 pg (27.0-33.0); MEAN CORPUSCULAR HGB CONC 34.5 g/dl (32.0-36.5); RED BLOOD COUNT 3.26 10^6/uL (4.00-5.40); WHITE BLOOD COUNT 5.1 10^3/uL (4.0-10.0)
[2020-10-04 05:34] LABS: HEMOGLOBIN 10.8 g/dl (12.0-15.5); PLATELET COUNT, AUTOMATED 59 10^3/uL (150-450)
[2020-10-04 05:42] LABS: ANISOCYTOSIS 1+; ATYPICAL LYMPH 2 % (0-5); LYMPHOCYTES 14 % (16-44); MONOCYTES 16 % (0-5); NEUTROPHILS 54 % (28-66); PLATELET ESTIMATE DECREASED (NORMAL); POLYCHROMASIA 1+
[2020-10-04 07:26] LABS: BLOOD UREA NITROGEN 9 MG/DL (7-18); CALCIUM LEVEL 7.5 MG/DL (8.5-10.1); CARBON DIOXIDE LEVEL 29 MEQ/L (21-32); CHLORIDE LEVEL 101 MEQ/L (98-107); CREATININE FOR GFR 0.32 MG/DL (0.55-1.30); GLOMERULAR FILTRATION RATE > 60.0 (>51); GLUCOSE, FASTING 90 MG/DL (70-100); MAGNESIUM LEVEL 2.3 MG/DL (1.8-2.4); POTASSIUM SERUM 2.5 MEQ/L (3.5-5.1); SODIUM LEVEL 139 MEQ/L (136-145)
[2020-10-04 08:00] VITALS: BP 107/56
[2020-10-04] MEDS ORDERED: KCL 10MEQ/100ML SWI (KRUN) 10 MEQ in IV 1 EA IV SCH (08:00)
--- NOTE | 2020-10-04 08:43 | REP ---
INDICATION: ffup sbo. COMPARISON: Yesterday FINDINGS: The small bowel gas para is essentially unchanged. Dilated small bowel loops are again noted status quo. There is no evidence of free intraperitoneal air. IMPRESSION: No significant change <Electronically signed by Jaret Malhotra > 10/04/20 0818
[2020-10-04] MEDS: guaiFENesin ER 600 MG TAB PO SCH ×2 (08:44→20:51)
[2020-10-04] MEDS: KCL 20MEQ IN 100ML SWI (KRUN) 20 MEQ in IV 1 EA IV SCH ×10 (09:22→18:33)
--- NOTE | 2020-10-04 09:44 | ECHO ---
DATE OF PROCEDURE: 10/03/2020 Age: 55 Gender: Female Height: 155 cm Weight: 51 kg REFERRING PHYSICIAN: Des Stephens M.D. INDICATION: Sepsis. MEASUREMENTS: IVS 1.1 cm LV 2.7 cm LVPW 1.1 cm LA 2.7 cm Aorta 2.4 cm IVC 1.2 cm FINDINGS: This study is of rather limited technical quality. The patient has breast implants and the positioning was limited. Underlying sinus rhythm. Left ventricle has normal size and hyperdynamic contractility. Based on limited views I estimate EF around 70%. No segmental wall motion abnormalities are appreciated, but visualization was really limited. Right ventricle was poorly seen, but does not appear grossly enlarged. Both atria appear grossly normal. Aortic valve is tricuspid, it has normal mobility. Mitral valve also appears normal. Tricuspid and pulmonic valve were not well visualized. No pericardial effusion is noted. Inferior vena cava is of relatively small size and appropriately collapses with inspiration indicative of low or normal central venous pressure. Aortic root is normal. Aortic arch and abdominal aorta were not visualized. Doppler interrogation of the aortic valve reveals no stenosis and trace insufficiency. There is also competent mitral valve. Right-sided heart valves were not properly interrogated. There was no evaluation of diastolic function because apical views were not available. CONCLUSIONS: 1. Study is of limited technical quality, underlying sinus rhythm. 2. Normal LV size with normal LV systolic function. Unable to estimate diastolic function. 3. No significant aortic and mitral valvular disease. 4. Right-sided valves and chambers were poorly seen. 5. Likely normal or low central venous pressure, unable to estimate pulmonary artery pressure. MTDD
--- NOTE | 2020-10-04 09:49 | IPNPDOC ---
Text Note Date of Service The patient was seen on 10/04/20. NOTE General Surgery Dr Charlton. The patient is a 55-year-old female admitted with abdominal pain, nausea vomiting and diarrhea. The patient was admitted with SBO versus postchemotherapy side effects. NGT in place. 400ml output recorded. The pt reports there has been some movement in her abdominal pain, asking to drink fluids. 2 BM yesterday. The patient is generally ill-appearing. Tmax 100.6 Heart rate 110, respiratory rate 22, blood pressure 107/56, 91% Venturi mask. Abdomen is soft, still distended, no guarding or rebound. NG tube in place. Urine culture, blood culture neg. GI panel pending. AXR 10/04/20 FINDINGS: The small bowel gas para is essentially unchanged. Dilated small bowel loops are again noted status quo. There is no evidence of free intraperitoneal air. IMPRESSION: No significant change <Electronically signed by Jaret Malhotra > 10/04/20 A/P SBO The patient is reviewed and examined as per Dr. Charlton this morning. Continue NG tube to LIS for now. NPO Imaging to be reviewed by Dr. Charlton. IVF 100cc/hr TPN added per Hospitalist. IV Zosyn. GI panel pending. Continue to monitor. VS,Fishbone, I+O VS, Fishbone, I+O Laboratory Tests 10/04/20 05:07 Vital Signs Date Time Temp Pulse Resp B/P (MAP) Pulse Ox O2 Delivery O2 Flow Rate FiO2 10/04/20 08:00 98.8 110 22 107/56 (73) 91 Venturi Mask 8.0 10/04/20 04:20 31 I&O- Last 24 Hours up to 6 AM 10/04/20 06:00 Intake Total 2000 ml Output Total 825 ml Balance 1175 ml Attending Note Attending Note I saw the patient with Ms. Serra I returned to her after I saw the results of the x-ray. Clinically she is improved than on her presentation. She is showing some bowel function with mainly loose incontinent stool that is nonbloody. Her abdomen still remains mildly distended, hypoactive. There is no tenderness on examination and that how she was on presentation. She did have abdominal discomfort centered over the left lower quadrant area on initial presentation on the . X-ray still shows just about the same level of distention as it was yesterday. It looks like after we adjusted the nasogastric tube yesterday, it seems to be functioning more. She has more drainage today compared to yesterday. So far she has about 475 mL's in the canister recorded. She is taking some ice chips with this. She really would like to have some liquids to drink. At this point she still is showing some obstructive pattern on the x-ray though certainly not looking like mechanical obstruction clinically, may be an element of ileus from the pneumonia. Of course we cannot discount the possibility of involvement of the bowel with the metastatic cancer though I think this is unlikely. It still could be prolonged side effect of the Capecitabine. I told her we will continue with the nasogastric tube and observe the drainage over the next day or so and decide depending on her clinical picture whether we can clamp the Veress first before we remove this. Has not fully improved, would like to do a CT Enterogram on wednesday (we could not do it on the ). For the meantime we will start her on TPN as she is very malnourished. Mali Aparicio Oct 04, 2020 09:49 CHIP CHARLTON MD Oct 04, 2020 11:54
[2020-10-04 12:00] VITALS: BP 121/55
--- NOTE | 2020-10-04 15:27 | IPNPDOC ---
Date Seen The patient was seen on 10/04/20. Progress Note SUBJECTIVE: Gina was seen and examined today by the hospitalist service while sitting upright in bed. She reports no acute or significant issues overnight. She asserts that she feels she can go home soon and finds the NG tube and Venturi mask intrusive and objectionable. She reports continued increased work of breathing as well as difficulty completing spoken sentences. She feels as though she has phlegm to bring up but is unable to.. She has had multiple incontinent voids and bowel movements, which was corroborated by the nurse at bedside. She describes the incontinent bowel movements as watery with no formed stool. Due to the bowel, bladder incontinence, it is been difficult for nursing to obtain both the order GI panel and sample for urinalysis. She denies any current or overnight, nausea, emesis, abdominal pain, fever, chills, night sweats, chest pain, palpitations, dysuria, hematuria, or blood in stool. OBJECTIVE PHYSICAL EXAMINATION: VITAL SIGNS: Please see below. GENERAL: Appears more energetic and interactive today, but still overall is relatively ill-appearing. Her voice is stronger today and she's here to understand. HEENT: Normocephalic, atraumatic. Wearing eyeglasses. Wearing upper and lower dentures. Mildly dry mucous membranes. No pharyngeal erythema or exudate appreciated. NG tube remains in place draining dark green colored fluid. CARDIOVASCULAR: Tachycardic rate, regular rhythm. Normal S1, S2. Difficult to appreciate for murmurs due to background respiratory and Venturi mask sounds. RESPIRATORY: Wearing Venturi mask (current settings of 8 L, FiO2 31%). Tachypneic with shallow breathing and conversational dyspnea. Continues to have diminished breath sounds throughout with right lower lobe crackles posteriorly. Some intermittent upper respiratory sounds. ABDOMINAL: Soft, nontender and nondistended. Hypoactive bowel sounds throughout. No rigidity. EXTREMITIES: Trace nonpitting edema of distal left lower extremity. 2+ radial pulses bilaterally. NEUROLOGICAL: No focal deficits appreciated. Non-dysarthric speech. PSYCHOLOGICAL: Mood improved today with more energy. Appropriate appearing affect. LABORATORY DATA, IMAGING STUDIES, MICROBIOLOGY: Please see below. 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 She had been having weakness, nonbloody diarrhea, and nonbloody emesis prior to presentation. She was cardiac and tachypneic, and found to be septic secondary to pneumonia, pancytopenic, and hyponatremic, with imaging showing a suspected with a small bowel obstruction. She was started on Zosyn with aggressive IV fluid hydration per sepsis bundle. She was made NPO and a nasogastric tube was placed to initially help decompress SBO. #Sepsis- likely secondary to hospital acquired pneumonia and possibly secondary to intra-abdominal etiology -She remained both tachycardic and tachypneic through the overnight and this morning. Heart rates in the low 110s with respiratory rates in the 20s. She remains afebrile. She was leukopenic previous 2 days, but white cell count returned to normal limits. -CTA yesterday showing continued multifocal pneumonia with new areas of early consolidation/atelectasis of the right middle and lower lobes. -She received over 3 L of fluid resuscitation from admission Wednesday through yesterday morning. Fluid subsequently stopped and she was transfused 2 units of packed red blood cells. Throughout fluid resuscitation and transfusions, patient remained normotensive and continues to currently be normotensive. -Repeat abdominal x-ray today showed no interval change from yesterday's x-ray - continues to be no free air appreciated with pattern consistent of small bowel obstruction. -Continuing with Zosyn (day #3) for pseudomonal and anaerobic coverage -Both initial blood cultures drawn 10/02 preliminarily show no growth after 48 hours. MRSA PCR screen negative. Sputum culture has been ordered and yet to be obtained. Initial urine culture showed no growth. A GI panel has been ordered but has yet to be obtained due to incontinent bowel movements. -Bandemia still present on morning labs, but percentage of bands has decreased over the past 2 days. Pro calcitonin was significantly elevated (23) upon admission -Lactic acid trended down from 4 to 2.7 yesterday afternoon. -Repeat CRP decreased to 18 from 26. -Remains on telemetry #Suspected small bowel obstruction in right lower abdomen -She is having incontinent watery bowel movements. -A repeat abdominal x-ray today had no interval change from yesterday and shows pattern consistent with SBO. -She remains nothing by mouth with an NG tube placed; 125 mL of output through NG tube through midnight, with additional 400 mL out since. -PICC line placed yesterday as she will likely be nothing by mouth for an extended period of time.. She is currently receiving TPN through the PICC. -Continuing with Zosyn -General surgery service (Dr. Charlton) has been consulted. Plan is to observe patient over the weekend to assess for resolution of bowel obstruction. As small bowel follow-through may be difficult due to pt's current tachypnea and hypoxia, CT enterogram has been scheduled for 10/07. As it relates to possible surgery, she is at significant risk for prolonged postsurgical ventilation due to her metastatic disease and breathing issues. -Hospitalist service sincerely appreciates Dr. Charlton's continued involvement and recommendations. #Right middle and lower lobe pneumonia, likely hospital associated -Patient has been in multiple medical facilities over the past 2-3 months setting of her cancer care. -Continuing with Zosyn (day #3) -She is in an immunocompromised state due to current capecitabine chemotherapy treatments -There is also concern for spread of metastatic disease to lungs, as there were visualized nodules scattered throughout on CTA. -Have added incentive spirometry, Acapella, Mucinex, and as needed Xopenex (setting of tachycardia) to hopefully break up mucus and allow for better respiration. -She has no diagnosed history of lung disease but is an active smoker (40 yrs). O2 titration orders set for 8892 percent. #Hypoxia -Likely secondary to both right middle and lower lobe pneumonia, atelectasis, and likely metastatic spread to lungs -We placed orders to titrate oxygen down as tolerated yesterday, and patient is now down to 8 L on the venti mask from 15, with an FiO2 decreased to 31%. She was saturating in the low 90s during the overnight and remains tachypneic. -CTA was ordered yesterday in setting of tachycardia and hypoxia with impression read as unremarkable for active pulmonary embolism. #Pancytopenia, likely secondary to current chemotherapy -WBC increased from the two prior days to within normal limits. Initial cell counts were not dissimilar from previous measurements earlier this month. -Anemia: received 2 units of packed red blood cells yesterday due to Hgb of 8, and Hgb improved today to 10.8. -Thrombocytopenia: continued to worsen for a second consecutive day, with measurement of 59,000 today. Will continue to monitor, and patient is on teds and sequentials for DVT prophylaxis. #Hypokalemia -Serum potassium this morning was severely decreased to 2.5. Patient received three, 20 mEq potassium runs through her PICC line and is also getting additional potassium with her TPN. -Repeat metabolic panel to assess for status post supplementation. #Elevated bilirubin -Initial labs showed bilirubin of 1.3. A liver ultrasound was ordered to assess for possible obstructing gallstones with resulting impression showing metastatic spread to liver. Hepatitis panel was unremarkable. #Low serum creatinine -Creatinine continues to be low and trend downward. This most likely secondary to patient's low BMI in the setting of metastatic disease. #Stage IV metastatic invasive ductal cell carcinoma of the left breast with spread to pleura and liver -She follows with Dr. Connors at the cancer center and was diagnosed in March 2016 -She initially received dose dense chemotherapy and radiation. She then was on immunotherapy for some time, and due to progression of disease to pleura and liver shown on PET scan 2 months ago (July 2020), she started chemotherapy again on 08/18/20 -Based on yesterday's CTA, there is imaging findings suspicious for metastatic spread to lungs #Gastrointestinal prophylaxis -Continue with Protonix #DVT prophylaxis: Teds and sequentials in the setting of thrombocytopenia Code status: Full code Disposition: Patient continues to have a poor prognosis and both she and her have been made aware of the imaging findings suggestive of new metast atic spread to lungs. Continuing with NG tube and surveillance for improvement in SBO over the weekend, as well as pending improvement in oxygenation. VS, I&O, 24H, Fishbone Vital Signs/I&O Vital Signs Date Time Temp Pulse Resp B/P (MAP) Pulse Ox O2 Delivery O2 Flow Rate FiO2 10/04/20 12:00 99.1 117 22 121/55 (77) 94 Venturi Mask 8.0 10/04/20 04:20 31 I&O- Last 24 Hours up to 6 AM 10/04/20 06:00 Intake Total 2000 ml Output Total 825 ml Balance 1175 ml Laboratory Data 24H LABS Laboratory Tests 2 10/04/20 05:07: Neutrophils (%) (Auto) , Nucleated Red Blood Cells % (auto) 0.6H, Neutrophils 54, Band Neutrophils 14H, Lymphocytes (Manual) 14L, Monocytes (Manual) 16H, Atypical Lymphocytes 2, Polychromasia 1+, Anisocytosis 1+, Platelet Estimate DECREASED, Immature Platelet Fraction 7.0, Anion Gap 9, Glomerular Filtration Rate > 60.0, Calcium Level 7.5L, Magnesium Level 2.3, C-Reactive Protein, Quantitative 18.70H 10/04/20 12:57: Bedside Glucose (Misc Panel) 80 CBC/BMP Laboratory Tests 10/04/20 05:07 Microbiology Microbiology 10/02/20 Urine Culture - Final, Complete 10/02/20 Blood Culture - Preliminary, Resulted No Growth after 48 hours. All Specime... 10/02/20 Blood Culture - Preliminary, Resulted No Growth after 48 hours. All Specime... GME ATTESTATION GME ATTESTATION My faculty preceptor for this patient encounter was physically present during the encounter and was fully available. All aspects of the patient interview, examination, medical decision making process, and medical care plan development were reviewed and approved by the faculty preceptor. The faculty preceptor is aware and concurs with the plan as stated in the body of this note and will attest to such by his/her cosignature. ATTENDING NOTE I, Des Stephens, have independently examined this patient and performed my own physical exam, as well as reviewed the documentation and edited where necessary. I have discussed in detail with the resident / student the findings and plan of treatment as documented by the resident / student and edited their note. I agree with their findings and treatment plan and have edited their documentation. I will continue to follow the patient during this hospital stay. ZBIGNIEW REAGAN D.O. Oct 04, 2020 15:27 DES STEPHENS MD Oct 04, 2020 16:22
[2020-10-04] MEDS: LEVALBUTEROL 1.25 MG/0.5 ML CONCENTRATE NEB INH PRN ×2 (15:53→15:54)
[2020-10-04 16:00] VITALS: BP 129/59
[2020-10-04 16:18] LABS: BLOOD UREA NITROGEN 7 MG/DL (7-18); CALCIUM LEVEL 8.1 MG/DL (8.5-10.1); CARBON DIOXIDE LEVEL 28 MEQ/L (21-32); CHLORIDE LEVEL 99 MEQ/L (98-107); CREATININE FOR GFR 0.19 MG/DL (0.55-1.30); GLOMERULAR FILTRATION RATE > 60.0 (>51); GLUCOSE, FASTING 86 MG/DL (70-100); SODIUM LEVEL 137 MEQ/L (136-145)
[2020-10-04] MEDS: PANTOPRAZOLE 40MG VIAL (C9113 PER 1) IV SCH (16:46)
[2020-10-04] MEDS: HumaLOG INSULIN (NovoLOG) PER UNIT SC SCH (18:00)
[2020-10-04] MEDS ORDERED: MULTIVITAMIN -ADULT INJECTION 10 ML, CR/CU/SE/MN/ZN INJ 1 ML, POTASSIUM CHLORIDE INJ 55... IV SCH ×4 (18:00)
[2020-10-04] MEDS ORDERED: FAT EMULSION IV 20% 500 ML IV SCH (18:00)
[2020-10-04 20:00] VITALS: BP 117/65
[2020-10-05] VITALS: BP 117/64
[2020-10-05] MEDS: HumaLOG INSULIN (NovoLOG) PER UNIT SC SCH ×4 (00:05→18:54)
[2020-10-05] MEDS: LEVALBUTEROL 1.25 MG/0.5 ML CONCENTRATE NEB INH PRN (01:36)
[2020-10-05 04:00] VITALS: BP 115/58
[2020-10-05] MEDS: PIPERACILLIN/TAZOBACTAM SOD 3.375 GM in D5W MINI-BAG PLUS 50 ML IV SCH ×4 (04:09→22:21)
[2020-10-05 05:15] LABS: HEMATOCRIT 33.2 % (36.0-47.0); HEMOGLOBIN 11.4 g/dl (12.0-15.5); MEAN CORPUSCULAR HEMOGLOBIN 33.3 pg (27.0-33.0); MEAN CORPUSCULAR HGB CONC 34.3 g/dl (32.0-36.5); MEAN CORPUSCULAR VOLUME 97.1 fl (80.0-96.0); RED BLOOD COUNT 3.42 10^6/uL (4.00-5.40); WHITE BLOOD COUNT 5.6 10^3/uL (4.0-10.0)
[2020-10-05 05:16] LABS: PLATELET COUNT, AUTOMATED 51 10^3/uL (150-450)
[2020-10-05 05:17] LABS: BLOOD UREA NITROGEN 8 MG/DL (7-18); CALCIUM LEVEL 7.7 MG/DL (8.5-10.1); CARBON DIOXIDE LEVEL 30 MEQ/L (21-32); CHLORIDE LEVEL 98 MEQ/L (98-107); GLOMERULAR FILTRATION RATE > 60.0 (>51); GLUCOSE, FASTING 168 MG/DL (70-100); MAGNESIUM LEVEL 2.2 MG/DL (1.8-2.4); POTASSIUM SERUM 3.3 MEQ/L (3.5-5.1); SODIUM LEVEL 135 MEQ/L (136-145)
[2020-10-05 05:46] LABS: ATYPICAL LYMPH 1 % (0-5); EOSINOPHILS 1 % (0-3); LYMPHOCYTES 12 % (16-44); MONOCYTES 2 % (0-5); NEUTROPHILS 84 % (28-66)
[2020-10-05 05:47] LABS: PLATELET ESTIMATE MARKED DECREASE (NORMAL)
[2020-10-05 05:48] LABS: ANISOCYTOSIS 1+; POIKILOCYTOSIS 1+
[2020-10-05 08:00] VITALS: BP 107/56
[2020-10-05] MEDS: guaiFENesin ER 600 MG TAB PO SCH ×2 (09:25→21:20)
[2020-10-05] MEDS: KCL 20MEQ IN 100ML SWI (KRUN) 20 MEQ in IV 1 EA IV SCH ×16 (09:25→18:53)
--- NOTE | 2020-10-05 09:40 | IPN ---
GENERAL SURGERY PROGRESS NOTE DATE: 10/05/2020 SUBJECTIVE: The patient has had bowel movement, which are less liquid than they have been starting to firm up a little bit. Her white count is normalized and overall, she states she is feeling better. She is not complaining of any significant abdominal pain. She does say that she is bloated, but overall her Is and Os show no significant NG output overnight. OBJECTIVE: On physical examination, the patient still has rhonchorous breath sounds. She states she is less short of breath than previously. Abdomen is soft and slightly distended with some tympanitic percussion throughout the upper abdomen. Extremities are warm and well perfused. ASSESSMENT AND PLAN: The patient has a resolving enteritis/partial obstruction. Although it is probably a functional obstruction associated with the enteritis/chemotherapy at this point, my recommendation is to clamp the nasogastric (NG) tube and we will see how she does with it clamped. If she tolerates this throughout the day, then we will plan on removal of the NG tube and start her on a clear liquid diet tomorrow morning. If she tolerates that, then that can be progressed as tolerated and discharged as per medicine; but for today, we will be clamping the NG tube and see how she does.
[2020-10-05] MEDS: SIMETHICONE 80MG CHEW TAB PO SCH ×4 (10:41→21:20)
[2020-10-05 12:00] VITALS: BP 119/63
[2020-10-05] MEDS ORDERED: LORazepam 2 MG/ML VIAL IV PRN (14:00)
[2020-10-05 16:00] VITALS: BP 115/61
[2020-10-05] MEDS: PANTOPRAZOLE 40MG VIAL (C9113 PER 1) IV SCH (16:15)
--- NOTE | 2020-10-05 16:55 | IPNPDOC ---
Date Seen The patient was seen on 10/05/20. Progress Note SUBJECTIVE: Gina was seen and examined this morning by the hospitalist service while sitting upright in bed. She reports slightly less work of breathing since yesterday with decreased conversational dyspnea. She remains on Venturi mask. On discussion with nursing, patient had some loose BMs in the evening and overnight that apparently had some formed stool in them, which is an improvement, as prior stool had been reported to be fully watery. She continues to be incontinent. She reports passing gas and burping intermittently. The NG tube remains in place at time of exam. She denies any nausea, emesis, abdominal pain, or pain with defecation. She reports some increased anxiety today. She denies any overnight fever, chills, or night sweats. OBJECTIVE PHYSICAL EXAMINATION: VITAL SIGNS: Please see below. GENERAL: More energetic and interactive for the second consecutive day. HEENT: Normocephalic, atraumatic. Wearing eyeglasses. Wearing upper and lower dentures. No pharyngeal erythema or exudate appreciated. NG tube remains in place draining dark green colored fluid. Wearing Venturi mask. CARDIOVASCULAR: Tachycardic rate, regular rhythm. Normal S1, S2. Difficult to appreciate for murmurs due to background respiratory and Venturi mask sounds. RESPIRATORY: Wearing a pediatric Venturi mask (current settings of 8 L, FiO2 31%). Tachypneic with shallow breathing. Her conversational dyspnea from previous days has improved. Continued diminished breath sounds throughout with right lower lobe crackles posteriorly.. There is diffuse moderate rhonchi. ABDOMINAL: Soft, nondistended. As some right lower quadrant tenderness to deep palpation. Hypoactive bowel sounds throughout. No rigidity. EXTREMITIES: 1+ pitting edema of left lower extremity. 2+ radial pulses bilaterally. NEUROLOGICAL: No focal deficits appreciated. Non-dysarthric speech. PSYCHOLOGICAL: Mood improved today with more energy. Appropriate appearing affect. LABORATORY DATA, IMAGING STUDIES, MICROBIOLOGY: Please see below. 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 She had been having weakness, nonbloody diarrhea, and nonbloody emesis prior to presentation. She was cardiac and tachypneic, and found to be septic secondary to pneumonia, pancytopenic, and hyponatremic, with imaging showing a suspected with a small bowel obstruction. She was started on Zosyn with aggressive IV fluid hydration per sepsis bundle. She was made NPO and a nasogastric tube was placed to initially help decompress SBO. On 10/05, NG tube was subsequently clamped to assess how patient does. In the setting of suspected long period of time without regular diet, a PICC line was inserted for nutrition. #Sepsis- likely secondary to hospital acquired pneumonia and possibly secondary to intra-abdominal etiology -She continues to have positive sirs criteria with both tachycardic and tachypneic. Heart rates in the low 110s with respiratory rates in the 20s. She remains afebrile. Her white count has returned to normal limits for the past 2 days. -CTA on 10/03 showing continued multifocal pneumonia with new areas of early consolidation/atelectasis of the right middle and lower lobes. -Status post fluid sepsis protocol, hydration. Also received 2 units of packed red blood cells. Her admission. She was remained normotensive over the past 24 hours. -Two abdominal x-rays on 10/03 and 10/04 showed no free air appreciated with pattern consistent of small bowel obstruction. -Continuing with Zosyn (day #4) for pseudomonal and anaerobic coverage -Both initial blood cultures drawn 10/02 preliminarily show no growth after 48 hours. MRSA PCR screen negative. Sputum culture has been ordered and yet to be obtained. Initial urine culture showed no growth. A GI panel has been ordered but has yet to be obtained due to incontinent bowel movements. -Bandemia still present on morning labs, but percentage of bands has decreased over the past 2 days. Pro calcitonin was significantly elevated (23) upon admission -Lactic acid trended down from 4 to 2.7 yesterday afternoon. -Repeat CRP decreased to 18 from 26. -Remains on telemetry #Suspected small bowel obstruction in right lower abdomen -She had been having incontinent watery stools over the previous surgery 6 hours, but per nursing, she has had some formed stool recently. -Two abdominal x-rays on 10/03 and 10/04 showed no free air appreciated with pattern consistent of small bowel obstruction. -Patient was seen by general surgery service today (Dr. Barber) disease who ordered the NG tube to be clamped to assess for outpatient will do. There is a feeling that her partial obstruction may be in the process of resolving and if she tolerates having the NG tube clamped, plan will be to remove it tomorrow and begin a clear liquid diet. -PICC line placed on 10/03 due to an expected extended period of nothing by mouth status. She is currently receiving TPN through the PICC. -Continuing with Zosymartín (day #4) disease -Hospitalist service sincerely appreciates general surgery's continued involvement and recommendations. #Right middle and lower lobe pneumonia, likely hospital associated -Patient has been in multiple medical facilities over the past 2-3 months setting of her cancer care. -Continuing with Zosyn (day #4). We have asked nursing to switch the patient over to nasal cannula from the Venturi mask to see how she does. She remains tachypneic, with shallow breathing, but her conversational dyspnea had improved today. -She is in an immunocompromised state due to current capecitabine chemotherapy treatments -There is also concern for spread of metastatic disease to lungs, as there were visualized nodules scattered throughout on CTA. -Have added incentive spirometry, Acapella, Mucinex, and as needed Xopenex (setting of tachycardia) to hopefully break up mucus and allow for better respiration. -She has no diagnosed history of lung disease but is an active smoker (40 yrs). O2 titration orders set for 8892 percent. #Hypoxia -Likely secondary to both right middle and lower lobe pneumonia, atelectasis, and likely metastatic spread to lungs -Asked nursing to switch patient to nasal cannula from Venturi mask to assess how she does. -CTA was ordered on 10/03 in setting of tachycardia and hypoxia with impression read as unremarkable for active pulmonary embolism. #Pancytopenia, likely secondary to current chemotherapy -Leukocytosis has resolved as WBC has been within normal limits. Over the past 2 days. -Anemia, improved: Hemoglobin 11.4 this morning. Received 2 units of packed red blood cells on 10/03 due to Hgb of 8, and Hgb improved yesterday to 10.8. -Thrombocytopenia: continued to worsen for a second consecutive day, with measurement of 59,000 today. Will continue to monitor, and patient is on teds and sequentials for DVT prophylaxis. #Hypokalemia -Serum potassium decreased again this morning at 3.3. This potentially could be a result of potassium loss through versus possible paraneoplastic/hyperaldosterone affects. -Two (2), 20 mEq KCl runs were ordered this morning.. She is also receiving additional 40 mEq of potassium through her TPN. -R continue to monitor and repeat metabolic panels. #Elevated bilirubin -Initial labs showed bilirubin of 1.3. A liver ultrasound was ordered to assess for possible obstructing gallstones with resulting impression showing metastatic spread to liver. Hepatitis panel was unremarkable. #Low serum creatinine -Creatinine continues to be low and trend downward. This most likely secondary to patient's low BMI in the setting of metastatic disease. #Stage IV metastatic invasive ductal cell carcinoma of the left breast with spread to pleura and liver -She follows with Dr. Connors at the cancer center and was diagnosed in March 2016 -She initially received dose dense chemotherapy and radiation. She then was on immunotherapy for some time, and due to progression of disease to pleura and liver shown on PET scan 2 months ago (July 2020), she started chemotherapy again on 08/18/20 -Based on 10/03 CTA, there is imaging findings suspicious for metastatic spread to lungs #Gastrointestinal prophylaxis -Continue with Protonix #DVT prophylaxis: Teds and sequentials in the setting of thrombocytopenia Code status: Full code Disposition: Pending response to NG tube being clamped today. Should she tolerate this. She will have the tube removed and begin on clear liquid diets tomorrow. Overall, she has a poor prognosis due to her metastatic disease. Extensive discussions with both she and her have occurred since admission. Regarding her poor prognosis. VS, I&O, 24H, Fishbone Vital Signs/I&O Vital Signs Date Time Temp Pulse Resp B/P (MAP) Pulse Ox O2 Delivery O2 Flow Rate FiO2 10/05/20 16:00 98.1 131 24 115/61 (79) 98 Nasal Cannula 4.0 10/05/20 08:00 31 I&O- Last 24 Hours up to 6 AM 10/05/20 06:00 Intake Total 230 ml Output Total 475 ml Balance -245 ml Laboratory Data 24H LABS Laboratory Tests 2 10/04/20 18:50: Bedside Glucose (Misc Panel) 113H 10/04/20 23:59: Bedside Glucose (Misc Panel) 187H 10/05/20 04:30: Neutrophils (%) (Auto) , Nucleated Red Blood Cells % (auto) 0.5H, Neutrophils 84H, Lymphocytes (Manual) 12L, Monocytes (Manual) 2, Eosinophils (Manual) 1, Atypical Lymphocytes 1, Poikilocytosis 1+, Anisocytosis 1+, Macrocytosis 1+, Platelet Estimate MARKED DECREASE, Anion Gap 7L, Glomerular Filtration Rate > 60.0, Calcium Level 7.7L, Magnesium Level 2.2, C-Reactive Protein, Quantitative 16.60H 10/05/20 12:21: Bedside Glucose (Misc Panel) 151H CBC/BMP Laboratory Tests 10/05/20 04:30 Microbiology Microbiology 10/02/20 Urine Culture - Final, Complete 10/02/20 Blood Culture - Preliminary, Resulted No Growth after 72 hours. All specime... 10/02/20 Blood Culture - Preliminary, Resulted No Growth after 72 hours. All specime... GME ATTESTATION GME ATTESTATION My faculty preceptor for this patient encounter was physically present during the encounter and was fully available. All aspects of the patient interview, examination, medical decision making process, and medical care plan development were reviewed and approved by the faculty preceptor. The faculty preceptor is aware and concurs with the plan as stated in the body of this note and will attest to such by his/her cosignature. ATTENDING NOTE I, Des Stephens, have independently examined this patient and performed my own physical exam, as well as reviewed the documentation and edited where necessary. I have discussed in detail with the resident / student the findings and plan of treatment as documented by the resident / student and edited their note. I agree with their findings and treatment plan and have edited their documentation. I will continue to follow the patient during this hospital stay. ZBIGNIEW REAGAN D.O. Oct 05, 2020 16:55 DES STEPHENS MD Oct 06, 2020 09:31
[2020-10-05] MEDS ORDERED: POTASSIUM CHLORIDE INJ 55.6 MEQ in AMINO AC/ELECTROLYTE/DEX/CALC 2,000 ML IV SCH (18:00)
[2020-10-05] MEDS ORDERED: FAT EMULSION IV 20% 500 ML IV SCH (18:00)
[2020-10-05 20:00] VITALS: BP 110/71
[2020-10-05 20:14] LABS: BLOOD UREA NITROGEN 8 MG/DL (7-18); CALCIUM LEVEL 7.4 MG/DL (8.5-10.1); CARBON DIOXIDE LEVEL 25 MEQ/L (21-32); CHLORIDE LEVEL 102 MEQ/L (98-107); CREATININE FOR GFR 0.28 MG/DL (0.55-1.30); GLOMERULAR FILTRATION RATE > 60.0 (>51); GLUCOSE, FASTING 114 MG/DL (70-100); POTASSIUM SERUM 5.1 MEQ/L (3.5-5.1); SODIUM LEVEL 132 MEQ/L (136-145)
[2020-10-05] MEDS ORDERED: hydrOXYzine 10 MG TAB PO ONE (21:40)
[2020-10-06] VITALS: BP 108/60
[2020-10-06 04:00] VITALS: BP 111/66
[2020-10-06] MEDS: PIPERACILLIN/TAZOBACTAM SOD 3.375 GM in D5W MINI-BAG PLUS 50 ML IV SCH ×4 (04:29→22:16)
[2020-10-06 05:11] LABS: HEMATOCRIT 34.3 % (36.0-47.0); HEMOGLOBIN 11.7 g/dl (12.0-15.5); MEAN CORPUSCULAR HEMOGLOBIN 32.6 pg (27.0-33.0); MEAN CORPUSCULAR HGB CONC 34.1 g/dl (32.0-36.5); MEAN CORPUSCULAR VOLUME 95.5 fl (80.0-96.0); RED BLOOD COUNT 3.59 10^6/uL (4.00-5.40); WHITE BLOOD COUNT 6.3 10^3/uL (4.0-10.0)
[2020-10-06 05:22] LABS: PLATELET COUNT, AUTOMATED 42 10^3/uL (150-450)
[2020-10-06 05:27] LABS: ANISOCYTOSIS 1+; ATYPICAL LYMPH 7 % (0-5); EOSINOPHILS 1 % (0-3); LYMPHOCYTES 14 % (16-44); MONOCYTES 10 % (0-5); NEUTROPHILS 67 % (28-66); PLATELET ESTIMATE MARKED DECREASE (NORMAL); POIKILOCYTOSIS 1+; POLYCHROMASIA 1+
[2020-10-06 05:34] LABS: BLOOD UREA NITROGEN 9 MG/DL (7-18); CALCIUM LEVEL 7.8 MG/DL (8.5-10.1); CARBON DIOXIDE LEVEL 26 MEQ/L (21-32); CHLORIDE LEVEL 102 MEQ/L (98-107); CREATININE FOR GFR 0.16 MG/DL (0.55-1.30); GLOMERULAR FILTRATION RATE > 60.0 (>51); GLUCOSE, FASTING 85 MG/DL (70-100); MAGNESIUM LEVEL 2.1 MG/DL (1.8-2.4); SODIUM LEVEL 133 MEQ/L (136-145)
[2020-10-06] MEDS: HumaLOG INSULIN (NovoLOG) PER UNIT SC SCH ×2 (05:38)
[2020-10-06 08:00] VITALS: BP 104/57
--- NOTE | 2020-10-06 09:46 | IPNPDOC ---
Text Note Date of Service The patient was seen on 10/06/20. NOTE Subjective: Patient is a 55-year-old female with a PMHx of Stage IV Metastatic Invasive ductal cell carcinoma of the breast (Dx 03/2016), Depression / Anxiety , who presented to the emergency room via ambulance from her primary care providers office for tachycardia and hypotension. Patient reported that she with her primary care providers office because of weakness and diarrhea for the last 1 week. Patient reports that her diarrhea has been occurring 1-2 times a day. Patient describes as watery without any evidence of blood. While at the primary cares office. Patient was noted to be hypotensive and tachycardic and was subsequently sent to the emergency room for further evaluation. Upon arrival, patients systolic blood pressure has remained in the 130s to 140s over she has remained tachycardic in the 120s to 130s. Patient was admitted to the hospital service for further evaluation and treatment. Surgery was called on consultation for suspected small bowel obstruction. Patient was seen and examined at the bedside. Patient is seen sitting up in bed, nasal cannula in place saturating well. She has removed the NG tube yesterday. She denies any nausea, vomiting, belly pain, chest pain. Reports improvement of her shortness of breath still reports a mild cough without any significant expectoration. Has been continuing diarrhea. Objective: Vitals (See below) General: Sitting up in bed, appears not to be in any acute distress, is awake and alert HEENT: NC, AT CVS: +S1S2 Lungs: Fair air entry b/l, diffuse rhonchorous sounds bilaterally Abdomen: Soft, ND, NT Extremities: Trace pitting edema bilaterally, - Calf tenderness Imaging: CXR 10/02: Basilar opacities suggesting atelectasis (right greater than left) and small right pleural effusion. CT abdomen / pelvis 10/02: 1. High-grade small bowel obstruction with transition suggested in the right lower abdomen. 2. Hepatic and left adrenal lesions similar to prior examination and highly concerning for metastatic disease. 3. Extensive changes at the lung bases including scattered reticulonodular and subtle innumerable alveolar infiltrates with right infrahilar ill-defined consolidations increased compared to 09/26/2020. 4. Cannot exclude subtle bony lytic metastases. CT Chest 10/02: 1. Abnormal lung field findings as described above. Neoplastic and or infectious etiology. 2. Suspicious liver lesion as described above concerning for hepatic metastasis. 3. Other findings as described above. Liver US 10/02: Hepatic lesions consistent with the known metastases. CTA chest 10/03: No evidence for pulmonary embolus. Suggest continued multifocal pneumonia with new areas of atelectasis/early consolidation involving right middle lobe and right lower lobe. Scattered nodules may also reflect metastatic disease. XR abdomen 10/04: No significant change Assessment and Plan: s/p Sepsis - possibly 2/2 pneumonia (possibly healthcare associated), possibly 2/2 intra-abdominal etiology - Patient presented to the ER with weakness; and was reported to have hypotension and tachycardia at PCP office - Patient is currently hemodynamically stable and afebrile - Reports a cough that is productive, however, she isn't able to expectorate much sputum - Physical reveals rhonchi bilaterally - Imaging above noted - MRSA negative - Blood cultures 10/02: No growth at 72 hours - UA negative; Urine culture 10/02: Negative - c/w Zosyn (Day #5) Acute hypoxic respiratory failure - likely 2/2 above - Saturations have been improving - Patient has been slowly tapered down supplemental oxygen requirement Suspected small bowel obstruction - Patient had an NG tube placed, but was removed for/24 - Currently patient denies any nausea, vomiting or abdominal pain - Has continued to have bowel movements - Imaging noted above - Will DC TPN nutrition; anticipate diet will be advanced today by surgery - General surgery on consultation s/p Lactic acidosis s/p Hyponatremia - likely 2/2 hypotonic hypovolemic etiology s/p Hypokalemia s/p Pancytopenia - likely secondary to chemotherapy - Ounce appear to be improving - Thrombocytopenia worsening - No evidence of bleed - s/p 2 units PRBC Elevated bilirubin - Will check liver profile - Hepatitis profile negative - Imaging noted above Stage IV metastatic invasive ductal carcinoma of the breast - Dx 03/2016 - Patient has received multiple rounds of chemotherapy in the past - Has received adjuvant radiation therapy - PET scan completed 07/2020 has shown evidence of progressive pleural hypermetabolic soft tissues starting and for new hypermetabolic metastatic foci in the liver - Patient was started on Capecitabine chemotherapy on 08/18/[address] Connors Gastrointestinal prophylaxis - c/w Protonix DVT prophylaxis - c/w TEDs/Sequentials (re: Thrombocytopenia) Prognosis: - Poor Disposition: - Awaiting clinical improvement - Discussed with patient and in detail about prognosis and goals of care; they voiced understanding of poor prognosis overall VSGabriel, I+O VSGabriel, I+O Laboratory Tests 10/05/20 19:41 10/06/20 04:53 Vital Signs Date Time Temp Pulse Resp B/P (MAP) Pulse Ox O2 Delivery O2 Flow Rate FiO2 10/06/20 08:00 97.8 113 26 104/57 (73) 94 High Flow Cannula 1.0 10/05/20 16:00 31 I&O- Last 24 Hours up to 6 AM 10/06/20 05:59 Intake Total 140 ml Output Total 625 ml Balance -485 ml KHADAR TIMMONS MD Oct 06, 2020 09:46
[2020-10-06] MEDS: SIMETHICONE 80MG CHEW TAB PO SCH ×4 (09:50→21:42)
[2020-10-06] MEDS: guaiFENesin ER 600 MG TAB PO SCH ×2 (09:50→21:30)
[2020-10-06 10:11] LABS: ALBUMIN 1.6 GM/DL (3.2-5.2); ALT/SGPT 16 U/L (12-78); BILIRUBIN,DIRECT 0.4 MG/DL (0.0-0.2); BILIRUBIN,TOTAL 1.2 MG/DL (0.2-1.0); TOTAL PROTEIN 4.9 GM/DL (6.4-8.2)
[2020-10-06] MEDS: LEVALBUTEROL 1.25 MG/0.5 ML CONCENTRATE NEB INH PRN (11:14)
[2020-10-06 12:00] VITALS: BP 102/53
[2020-10-06 16:00] VITALS: BP 95/50
[2020-10-06] MEDS: PANTOPRAZOLE 40MG VIAL (C9113 PER 1) IV SCH (16:31)
[2020-10-06 20:00] VITALS: BP 112/53
--- NOTE | 2020-10-06 22:33 | IPN ---
PROGRESS NOTE DATE: 10/06/2020 SUBJECTIVE: Patient overall has tolerated her NG tube that has been out since yesterday. She started on a clear liquid diet this morning and says tolerated this. She is having numerous diarrheal bowel movements and is wondering if she can take something to slow her bowels down at this time. Her abdomen is still softly distended, tympanitic in the upper abdomen, but without guarding, without rebound, without peritoneal signs. Her white count is 6.3 and continues to improve slowly on a daily basis. IMPRESSION/PLAN: Patient had ileus associated with her pneumonia or could be secondary to chemical/chemotherapy enteritis. In any case, at this point, she seems to be making some slow but progressive improvement. I would recommend that she gradually increase her diet to a soft diet as tolerated and obviously the question is whether to start her on some anti-diarrheals, but with her abdominal distention, I would recommend that we stay away from that until we are sure that she is tolerating a diet and continues to have bowel movements. Anticipate with the improvement of her white count, also the enteritis should improve, which should also improve her diarrheal issues.
[2020-10-07] VITALS (74 sets, daily range): BP systolic 65–159; BP diastolic 36–88; O2SAT 90
--- NOTE | 2020-10-07 03:27 | IPNPDOC ---
Text Note Date of Service The patient was seen on 10/07/20. NOTE 320am was informed by the patient's RN that she vomited and her O2 sats dropped to the 80s w a RR 30 / 140/65 / 97.7% / HR 149 At the time of my exam the patient was apprehensive and anxious; she denied having abd pain and has been having diarrhea Plan: KUB / zofran / VBG, will order labs early Late entry 458 The patient's RN informed me that the patient continues to have tachycardia, tachypnea and anxiety. She is not AC bc of low plts. I will order some ativan and CTA to r/o PE VS,Fishbone, I+O VS, Fishbone, I+O Laboratory Tests 10/06/20 04:53 Vital Signs Date Time Temp Pulse Resp B/P (MAP) Pulse Ox O2 Delivery O2 Flow Rate FiO2 10/07/20 00:00 1.0 10/07/20 00:00 98.8 130 25 107/59 (75) 97 Nasal Cannula 10/05/20 16:00 31 I&O- Last 24 Hours up to 6 AM 10/07/20 06:00 Intake Total 640 ml Output Total 0 ml Balance 640 ml GERTRUDIS MORGAN MD Oct 07, 2020 03:27
[2020-10-07] MEDS: LEVALBUTEROL 1.25 MG/0.5 ML CONCENTRATE NEB INH PRN (03:31)
[2020-10-07 04:08] LABS: VENOUS BASE EXCESS -2.9 (-2.0-2.0); VENOUS HCO3 22.8 MEQ/L (23.0-27.0); VENOUS PARTIAL PRESSURE CO2 43.2 mmHg (38.0-50.0); VENOUS PARTIAL PRESSURE O2 66.7 mmHg (30.0-50.0); VENOUS STANDARD HCO3 21.9 MEQ/L; VENOUS TOTAL CO2 24.1 MEQ/L (24.0-28.0)
[2020-10-07 04:17] LABS: HEMATOCRIT 34.6 % (36.0-47.0); HEMOGLOBIN 11.6 g/dl (12.0-15.5); MEAN CORPUSCULAR HEMOGLOBIN 33.1 pg (27.0-33.0); MEAN CORPUSCULAR HGB CONC 33.5 g/dl (32.0-36.5); MEAN CORPUSCULAR VOLUME 98.9 fl (80.0-96.0); WHITE BLOOD COUNT 7.7 10^3/uL (4.0-10.0)
[2020-10-07 04:18] LABS: PLATELET COUNT, AUTOMATED 53 10^3/uL (150-450)
[2020-10-07 04:33] LABS: BLOOD UREA NITROGEN 10 MG/DL (7-18); CALCIUM LEVEL 7.4 MG/DL (8.5-10.1); CARBON DIOXIDE LEVEL 25 MEQ/L (21-32); CHLORIDE LEVEL 101 MEQ/L (98-107); CREATININE FOR GFR 0.34 MG/DL (0.55-1.30); GLOMERULAR FILTRATION RATE > 60.0 (>51); GLUCOSE, FASTING 102 MG/DL (70-100); MAGNESIUM LEVEL 1.9 MG/DL (1.8-2.4); POTASSIUM SERUM 3.2 MEQ/L (3.5-5.1); SODIUM LEVEL 134 MEQ/L (136-145)
--- NOTE | 2020-10-07 04:40 | REPVR ---
PROCEDURE INFORMATION: Exam: XR Abdomen Exam date and time: 10/07/20 (3:48am) Age: 55 years old Clinical indication: Acute abdominal pain and vomiting. Recent SBO. TECHNIQUE: Imaging protocol: XR of the abdomen Views: Frontal supine view of the abdomen. 1 View. COMPARISON: Abdomen plain films of 10/04/20 CT ABDOMEN PELVIS of 10/02/20 FINDINGS: Comparison is made with abdominal plain films done on 10/04/20. Distended, air-filled small bowel loops are again noted. Some of the loops measure approx. 4.6 cm in diameter. The colon is not distended. The stomach is mildly distended, filled with air. No obvious free air is seen. No abnormal mass is noted. IMPRESSION: Bowel gas pattern is compatible with a mechanical SBO -- similar appearance 3 days ago. Continued follow-up is suggested. Electronically signed by: Mery Hernandes On 10/07/2020 04:39:24 AM
[2020-10-07 04:45] LABS: ANISOCYTOSIS 2+; LYMPHOCYTES 15 % (16-44); METAMYELOCYTES 1 % (0-0); MONOCYTES 1 % (0-5); NEUTROPHILS 67 % (28-66); PLATELET ESTIMATE DECREASED (NORMAL)
[2020-10-07] MEDS ORDERED: LORazepam 2 MG/ML VIAL IV STA (05:07)
[2020-10-07] MEDS: PIPERACILLIN/TAZOBACTAM SOD 3.375 GM in D5W MINI-BAG PLUS 50 ML IV SCH ×4 (05:21→23:38)
[2020-10-07] MEDS ORDERED: ISOVUE-370 76% 100ML VIAL As Ordered ONE (05:23)
[2020-10-07] MEDS: KCL 20MEQ IN 100ML SWI (KRUN) 20 MEQ in IV 1 EA IV SCH ×4 (07:30→09:14)
--- NOTE | 2020-10-07 08:01 | ECGEPIP ---
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
--- NOTE | 2020-10-07 08:20 | REPVR ---
PROCEDURE INFORMATION: Exam: CTA Chest With Contrast Exam date and time: 10/07/2020 7:25 AM Age: 55 years old Clinical indication: Shortness of breath and tachypnea; Additional info: Tachycardia, tachypnea. History of metastatic breast cancer. TECHNIQUE: Imaging protocol: Computed tomographic angiography of the chest with contrast. 3D rendering (Not supervised by radiologist): MIP and/or 3D reconstructed images were created by the technologist. Radiation optimization: All CT scans at this facility use at least one of these dose optimization techniques: automated exposure control; mA and/or kV adjustment per patient size (includes targeted exams where dose is matched to clinical indication); or iterative reconstruction. Contrast material: ISOVUE 370; Contrast volume: 75 ml; Contrast route: INTRAVENOUS (IV); COMPARISON: 1. PT PET/CT Skull/mid thigh 07/22/2020 11:14:[address] ANGIO CHEST 10/03/2020 12:[address] ABD PELVIS W/O CONTRAST 09/26/2020 7:55:20 PM FINDINGS: Tubes, catheters and devices: There is a PICC line catheter from the right upper extremity with the tip in the SVC. Pulmonary arteries: The pulmonary arteries are not enlarged. Assessment of the smaller branches is limited in some locations due to motion artifact. No filling defects are seen to indicate an acute pulmonary embolism. Aorta: The aorta demonstrates mild atherosclerotic calcification. There is no thoracic aortic aneurysm or evidence of dissection. Lungs: Mild centrilobular emphysematous changes are present. Motion artifact limits the assessment of the fine detail of the lungs. There is some improvement in consolidation in the right middle lobe and improvement in some areas of patchy ground-glass opacity in the bilateral upper lobes. However, there is an increase in patchy ground-glass opacity and poorly defined nodularity in the right lower lobe and an increase in patchy ground-glass opacity and patchy consolidation in the left lower lobe. Pleural spaces: No pleural effusions or pneumothorax identified. There is again mild nodular pleural thickening, mostly on the right side . Heart: The heart is normal in size. Lymph nodes: No lymphadenopathy is seen. Liver: There is a decrease in hepatic parenchymal density, consistent with fatty infiltration. Multiple enhancing lesions are again seen in the liver, consistent with known metastases. Bones/joints: No suspicious osseous lesions. No acute fractures. Soft tissues: Bilateral breast implants are present. IMPRESSION: 1. No evidence of acute pulmonary embolism. Assessment of the smaller branches is limited in some locations due to motion artifact. 2. Some areas of improvement of the lungs with decreased consolidation and ground-glass opacity but other areas show worsening with an increase in patchy consolidation and ground-glass opacity. The process is likely infectious or inflammatory and less likely directly neoplastic. 3. Nodular pleural thickening again noted, consistent with known metastatic involvement of the pleura. 4. Multiple enhancing liver lesions consistent with known metastases. Electronically signed by: Aubrie Redd On 10/07/2020 08:19:57 AM
--- NOTE | 2020-10-07 08:28 | REP ---
INDICATION: NG tube placement. COMPARISON: Comparison chest x-ray 03 October 2020. TECHNIQUE: Portable upright AP chest radiograph. FINDINGS: Nasogastric tube is seen passed into the distal stomach region. Right-sided PICC line is noted in place with its tip in the expected location of superior vena cava. Monitoring electrodes and oxygen delivery tubing are seen. Extensive interstitial infiltrates persist in the bases, more prominent than on the 03 October 2020 study consistent with progressive pneumonia. Heart is not enlarged. No pleural effusion is seen. Dilated small bowel loops are noted in the upper abdomen.. IMPRESSION: Increasing bibasilar infiltrate pattern. NG tube to the distal stomach. Dilated small bowel loops in the upper abdomen.. <Electronically signed by Davin Molina > 10/07/20 0540
[2020-10-07 08:33] LABS: CK-MB VALUE MASS < 1.0 NG/ML (<3.6); CPK CREATINE PHOSPHOKINASE 28 U/L (26-192); MB/CK RELATIVE INDEX 3.57 (< OR =4); TROPONIN I < 0.02 NG/ML (< 0.10)
--- NOTE | 2020-10-07 08:43 | IPNPDOC ---
Text Note Date of Service The patient was seen on 10/07/20. NOTE Subjective: Patient is a 55-year-old female with a PMHx of Stage IV Metastatic Invasive ductal cell carcinoma of the breast (Dx 03/2016), Depression / Anxiety , who presented to the emergency room via ambulance from her primary care providers office for tachycardia and hypotension. Patient reported that she with her primary care providers office because of weakness and diarrhea for the last 1 week. Patient reports that her diarrhea has been occurring 1-2 times a day. Patient describes as watery without any evidence of blood. While at the primary cares office. Patient was noted to be hypotensive and tachycardic and was subsequently sent to the emergency room for further evaluation. Upon arrival, patients systolic blood pressure has remained in the 130s to 140s over she has remained tachycardic in the 120s to 130s. Patient was admitted to the hospital service for further evaluation and treatment. Surgery was called on consultation for suspected small bowel obstruction. Overnight patient had an episode of vomiting approximately 3 AM and has very likely aspirated. Patient was noted to become severely hypoxic immediately after with worsening tachycardia. Patient had imaging lab work, EKGs and was transferred to the ICU for critical care monitoring. Media Analytics Manager was called on consultation. Patient was seen and examined at the bedside. Currently patient appears fatigued. Denies any significant pain is on a nonrebreather. Has not had any further episodes of vomiting since 3 AM NG tube will be placed. Burnett catheter will be placed. Objective: Vitals (See below) General: Patient is sitting up in bed, drowsy but responds to questioning, oriented to person and time HEENT: NC, AT CVS: +S1S2 Lungs: There are diffuse rhonchi bilaterally in upper and lower lung malave Abdomen: Soft, mildly distended, tympanic bowel sounds. No tenderness appreciated Extremities: Her extremities reveal trace pitting edema Imaging: CXR 10/02: Basilar opacities suggesting atelectasis (right greater than left) and small right pleural effusion. CT abdomen / pelvis 10/02: 1. High-grade small bowel obstruction with transition suggested in the right lower abdomen. 2. Hepatic and left adrenal lesions similar to prior examination and highly concerning for metastatic disease. 3. Extensive changes at the lung bases including scattered reticulonodular and subtle innumerable alveolar infiltrates with right infrahilar ill-defined consolidations increased compared to 09/26/2020. 4. Cannot exclude subtle bony lytic metastases. CT Chest 10/02: 1. Abnormal lung field findings as described above. Neoplastic and or infectious etiology. 2. Suspicious liver lesion as described above concerning for hepatic metastasis. 3. Other findings as described above. Liver US 10/02: Hepatic lesions consistent with the known metastases. CTA chest 10/03: No evidence for pulmonary embolus. Suggest continued multifocal pneumonia with new areas of atelectasis/early consolidation involving right middle lobe and right lower lobe. Scattered nodules may also reflect metastatic disease. XR abdomen 10/04: No significant change CTA chest 10/07: 1. No evidence of acute pulmonary embolism. Assessment of the smaller branches is limited in some locations due to motion artifact. 2. Some areas of improvement of the lungs with decreased consolidation and ground-glass opacity but other areas show worsening with an increase in patchy consolidation and ground-glass opacity. The process is likely infectious or inflammatory and less likely directly neoplastic. 3. Nodular pleural thickening again noted, consistent with known metastatic involvement of the pleura. 4. Multiple enhancing liver lesions consistent with known metastases. CXR 10/07: Increasing bibasilar infiltrate pattern. NG tube to the distal stomach. Dilated small bowel loops in the upper abdomen.. Assessment and Plan: Sepsis - possibly 2/2 pneumonia (possibly healthcare associated) and now aspiration pneumonia, possibly 2/2 intra-abdominal etiology - Patient presented to the ER with weakness; and was reported to have hypotension and tachycardia at PCP office - Overnight at 3 AM patient had an episode of vomiting and likely aspiration - She is currently on a non-rebreather - Physical with worsening rhonchi bilaterally - Imaging above noted - MRSA negative - Blood cultures 10/02: No growth at 72 hours - UA negative; Urine culture 10/02: Negative - c/w Zosyn (Day #6) Acute hypoxic respiratory failure - likely 2/2 above - Overnight patient's saturations have worsened after the aspiration event - ABG reviewed - Will transition to ICU for critical care monitoring - Will consult child and family counselor; case discussed this morning Suspected small bowel obstruction - Patient had an NG tube placed, but was removed for/24 - Patient had an episode of vomiting overnight - Has continued to have bowel movements; diarrhea - Imaging noted above - Will reinsert NG tube - General surgery on consultation; case discussed this morning s/p Lactic acidosis Hyponatremia - likely 2/2 hypotonic hypovolemic etiology - Mild - Will continue to monitor Hypokalemia - Will supplement via IV route s/p Pancytopenia - likely secondary to chemotherapy - Counts appear to be improving - Thrombocytopenia remains relatively stable - No evidence of bleed - s/p 2 units PRBC Elevated bilirubin - Improving - Hepatitis profile negative - Imaging noted above Stage IV metastatic invasive ductal carcinoma of the breast - Dx 03/2016 - Patient has received multiple rounds of chemotherapy in the past - Has received adjuvant radiation therapy - PET scan completed 07/2020 has shown evidence of progressive pleural hypermetabolic soft tissues starting and for new hypermetabolic metastatic foci in the liver - Patient was started on Capecitabine chemotherapy on 08/18/[address] Connors Gastrointestinal prophylaxis - c/w Protonix DVT prophylaxis - c/w TEDs/Sequentials (re: Thrombocytopenia) Prognosis: - Poor Code Status: - Full Disposition: - Awaiting clinical improvement - Discussed with this morning about status changes - express to him that her condition is critical; has verbalized understanding - I have addressed all his questions and concerns VS,Aminahe, I+O VS, Aminahe, I+O Laboratory Tests 10/07/20 03:59 Vital Signs Date Time Temp Pulse Resp B/P (MAP) Pulse Ox O2 Delivery O2 Flow Rate FiO2 10/07/20 04:00 15.0 10/07/20 04:00 97.7 145 30 118/65 (82) 96 Non-Rebreather 10/05/20 16:00 31 I&O- Last 24 Hours up to 6 AM 10/07/20 06:00 Intake Total 640 ml Output Total 0 ml Balance 640 ml KHADAR TIMMONS MD Oct 07, 2020 08:43
[2020-10-07] MEDS: guaiFENesin ER 600 MG TAB PO SCH (09:00)
[2020-10-07] MEDS: SIMETHICONE 80MG CHEW TAB PO SCH ×2 (09:00→13:00)
[2020-10-07 10:43] LABS: ABG O2 SATURATION 97.1 % (95.0-99.0); ABG PARTIAL PRESSURE CO2 45.1 mmHg (35.0-45.0); ABG PARTIAL PRESSURE O2 110.4 mmHg (75.0-100.0); ABG TOTAL CO2 24.4 MEQ/L (22.0-29.0); ABG pH (ARTERIAL) 7.326 UNITS (7.350-7.450)
--- NOTE | 2020-10-07 12:40 | CCN ---
CRITICAL CARE NOTE DATE: 10/07/2020 SUBJECTIVE: I was called to evaluate this patient urgently in the intensive care unit for hypoxemia. Admitted on 10/02 with small bowel obstruction, she was treated conservatively with NG tube decompression. The patient removed her NG tube and vomited following which, she became hypoxemic and was moved to the intensive care unit. The patient has a significant history of metastatic breast carcinoma and 40 years of smoking, actively smoking prior to her admission on 10/02. OBJECTIVE: VITAL SIGNS: At bedside, her temperature is 97.7, pulse rate 145, respirations 30, blood pressure 118/65. INTAKE AND OUTPUT: Accumulative I and Os are positive by 3.135 liters. HEENT: Oral and nasal mucosa are dry. The NG tube has been replaced into the left naris. NECK: Supple. No stridor. HEART: Sounds are regular without appreciable murmur. LUNGS: Breath sounds are coarse with scattered rhonchi appreciated bilaterally. CHEST: Symmetric. Accessory muscles are engaged during respiratory effort. ABDOMEN: Soft, but tympanitic. I am unable to appreciate bowel sounds. EXTREMITIES: Cool. Pulses are palpable x4. DIAGNOSTIC STUDIES: Her white cell count is 7.7, hemoglobin 11.6, hematocrit 34.6, platelet count 53,000. Differential white cell count shows 67 neutrophils and 16 bands. Electrolytes are sodium 134, potassium 3.2, chloride 101, CO2 of 25, BUN 10, creatinine 0.34, glucose 102. The C-reactive protein is 11.9. An arterial blood gas showed a pH of 7.34, pCO2 of 43, pO2 of 66. IMAGING: Chest x-ray and CT scans were reviewed. There is no evidence of pulmonary embolism. No patchy infiltrates are appreciated in the left base. ASSESSMENT AND PLAN: 1. The primary problem requiring critical attention is acute hypoxic respiratory failure. We will change her oxygen delivery system to aerosol and target saturations of 90% plus. 2. Tobacco use disorder. The patient was actively smoking prior to her admission and I suspect is experiencing some degree of bronchorrhea. We will add an anticholinergic. 3. Aspiration event. The patient's chest x-ray and CT scan are consistent with acute aspiration. Supportive care and supplemental oxygen would be appropriate at this juncture. 4. Bowel obstruction. The patient has now been decompressed with a nasogastric (NG) tube. Surgery is evaluating to determine the optimal time for surgery. 5. Metastatic breast carcinoma. The patient was actively being treated with chemotherapy prior to her admission. Recent PET scan shows active metastatic disease in the liver and pleura. The patient's condition is critical. Prognosis overall is poor. I discussed the case with the attending hospitalist service. We are awaiting surgical evaluation and we have updated the ICU nursing team on the plan of care for the day. CRITICAL CARE TIME: 74 minutes in the provision of bedside critical care and coordination, exclusive of any time spent in the performance or procedures.
[2020-10-07] MEDS ORDERED: MIDAZOLAM INJ 2MG/2ML VIAL (J2250 PER 1MG) As Ordered ONE (13:06)
[2020-10-07] MEDS: MIDAZOLAM INJ 2MG/2ML VIAL (J2250 PER 1MG) IV PRN ×2 (13:15→21:03)
[2020-10-07] MEDS ORDERED: MORPHINE 2 MG/ML 1ML VIAL (J2270) IV PRN (13:25)
[2020-10-07] MEDS ORDERED: REFRIGERATOR IV KEYS XX PRN (13:25)
[2020-10-07] MEDS ORDERED: NS 500 ML IV ONE ×2 (13:55→18:10)
[2020-10-07] MEDS ORDERED: MIDAZOLAM HCL 100 MG in D5W 80 ML IV SCH (14:00)
--- NOTE | 2020-10-07 14:01 | RO ---
OPERATIVE NOTE DATE OF OPERATION: 10/07/2020 PREOPERATIVE DIAGNOSIS: Hypoxemia. POSTOPERATIVE DIAGNOSIS: Hypoxemia. PROCEDURE: Endotracheal tube intubation. SURGEON: Vince Moreno DO, [facility] IN[facility] INTERNAL REVENUE: ANESTHESIA: DESCRIPTION OF PROCEDURE: The patient was seen in the intensive care unit in respiratory distress having deteriorated rapidly over the last 10 minutes, hypoxemic despite maximal oxygen delivery. #8 endotracheal tube was prepared, direct laryngoscopy was performed using GlideScope. The epiglottis was visualized and was found somewhat asymmetric. The areas were suctioned of secretions and the #8 endotracheal tube placed through the vocal cords and into the trachea to distance of 22 cm. The balloon was inflated, CO2 was appreciated on the monitor. Good bilateral breath sounds were appreciated and the patient was connected to mechanical ventilation. There were no complications.
[2020-10-07] MEDS ORDERED: NOREPINEPHRINE 4 MG/4 ML AMP As Ordered ONE (14:10)
--- NOTE | 2020-10-07 14:16 | REP ---
INDICATION: Ett. COMPARISON: Comparison portable chest x-ray 8:15 a.m. 07 October 2020. TECHNIQUE: Sitting AP portable chest x-ray time stamp 1:39 p.m... FINDINGS: Endotracheal tube is seen in position 2.4 cm above the luis at the lower margin of the transverse aorta.. NG tube enters the left upper quadrant. Right-sided PICC line terminates in the expected location of superior vena cava. Monitoring electrodes and oxygen delivery tubing are present. Extensive bilateral lower lobe infiltrates persist. Interstitial markings are diffusely prominent. Infiltrates are more prominent on the left than the right. IMPRESSION: Endotracheal tube in position 2.3 cm above the luis. Bibasilar interstitial infiltrates left greater than right.. <Electronically signed by Davin Molina > 10/07/20 [id number]
[2020-10-07] MEDS: NOREPINEPHRINE BITARTRATE 8 MG in D5W 492 ML IV SCH (14:17)
[2020-10-07 14:18] LABS: ABG BASE EXCESS -2.9 (-2.0-2.0); ABG HCO3 22.3 MEQ/L (22.0-26.0); ABG O2 SATURATION 97.4 % (95.0-99.0); ABG PARTIAL PRESSURE CO2 40.1 mmHg (35.0-45.0); ABG STANDARD HCO3 22.1 MEQ/L (22.0-26.0); ABG TOTAL CO2 23.5 MEQ/L (22.0-29.0); ABG pH (ARTERIAL) 7.363 UNITS (7.350-7.450)
[2020-10-07] MEDS: LEVALBUTEROL 1.25 MG/0.5 ML CONCENTRATE NEB INH SCH ×2 (14:30→19:44)
[2020-10-07] MEDS: IPRATROPIUM 0.02% SOLN 0.5MG 2.5ML NEB INH SCH ×2 (14:30→19:44)
--- NOTE | 2020-10-07 14:37 | IPNPDOC ---
Text Note Date of Service The patient was seen on 10/07/20. NOTE Patient had an aspiration event at about 3 am today. Her NGT got dislodged/re moved Wednesday evening and it was felt she was decompressed enough. She has been having multiple loose stools the prior 2 days. She was started on clears yesterday morning. Looking at her I/Os, she continues to have loose stools through to yesterday. She has been afebrile. Following the vomiting, she desaturated and continued to be hypoxemic despite high amounts of O2. She was subsequently transferred to the ICU. The NGT has been replaced back on transfer to the ICU. She was placed on face mask Patient seen this morning, I discussed her situation with Dr. Stephens, Dr. Moreno. Patient having difficulty breathing, tachypneic tachycardic, struggling to breath on face mask with sats barely in the 90s No obvious JVD, excessive use of extradiapragmatic muscles on breathing lung sounds, with scattered rhonchi on both lungs tachycardic (140s) abdomen soft, mildly distended, mildly rounded, no distinct tenderness no significant extremity edema Impression and plan pneumonia metastatic breast cancer bowel obstruction vs ileus vs enteritis (post administration of capecitabine 16 days ago) new aspiration event hypoxemic resp failure Patient not doing well. With this new aspiration on top of prior pneumonia (previous aspiration?) she now most likely will need intubation. She continues to show an obstructive type picture on follow up xrays despite having loose incontinent bms. Not clear if this is a mechanical obstruction though with nonimprovement I am inclined to think this is a mechanical obstruction. Ideally, I would like to get a better picture before commiting her to surgery and I was planning to get a CT enterogram today. Unfortunately she is unstable to spend that much time in radiology. Xrays done early this morning still show an obstruction picture. If she improves clinically and does not end up getting intubated, would like to proceed with a CT enterogram. For the meantime continue NGT and TPN. She came in malnourished with an albumin of 1.1 If it ends up she gets intubated, I will plan to bring her to the OR for diagnostic laparoscopy so long as her lung condition does not flourish to the point that she further deteriorates. The deterioration after all is not from whatever process happening in the abdomen and would not improve her lungs even with surgical intervention. But this certainly will improve her the chance of her recovering if we solve what is happening in her abdomen. VS,Gabriel, I+O VS, Gabriel, I+O Laboratory Tests 10/07/20 03:59 Vital Signs Date Time Temp Pulse Resp B/P (MAP) Pulse Ox O2 Delivery O2 Flow Rate FiO2 10/07/20 10:50 152 30 137/68 (91) 85 Aerosol Mask 15.0 10/07/20 09:33 98 10/07/20 08:31 100.1 I&O- Last 24 Hours up to 6 AM 10/07/20 06:00 Intake Total 640 ml Output Total 0 ml Balance 640 ml CHIP NGUYEN MD Oct 07, 2020 14:37
[2020-10-07] MEDS: PANTOPRAZOLE 40MG VIAL (C9113 PER 1) IV SCH (15:44)
[2020-10-07 18:00] LABS: ALBUMIN 1.5 GM/DL (3.2-5.2); BLOOD UREA NITROGEN 9 MG/DL (7-18); CARBON DIOXIDE LEVEL 24 MEQ/L (21-32); CHLORIDE LEVEL 101 MEQ/L (98-107); CREATININE FOR GFR 0.32 MG/DL (0.55-1.30); GLOMERULAR FILTRATION RATE > 60.0 (>51); GLUCOSE, FASTING 225 MG/DL (70-100); PHOSPHORUS LEVEL 2.2 MG/DL (2.5-4.9); POTASSIUM SERUM 3.7 MEQ/L (3.5-5.1); SODIUM LEVEL 134 MEQ/L (136-145)
[2020-10-07] MEDS: CHLORHEXIDINE GLUCONATE 0.12 % 15ML UDC (PERIDEX ORAL RINSE) MT SCH (21:03)
[2020-10-08] VITALS (89 sets, daily range): BP systolic 87–125; BP diastolic 48–59
[2020-10-08] MEDS: IPRATROPIUM 0.02% SOLN 0.5MG 2.5ML NEB INH SCH ×4 (02:53→19:16)
[2020-10-08] MEDS: LEVALBUTEROL 1.25 MG/0.5 ML CONCENTRATE NEB INH SCH ×4 (02:54→19:16)
[2020-10-08] MEDS ORDERED: ACETAMINOPHEN 650 MG SUPP PR PRN (03:20)
[2020-10-08] MEDS: PIPERACILLIN/TAZOBACTAM SOD 3.375 GM in D5W MINI-BAG PLUS 50 ML IV SCH ×4 (04:57→23:00)
[2020-10-08 05:29] LABS: HEMOGLOBIN 9.1 g/dl (12.0-15.5); MEAN CORPUSCULAR HEMOGLOBIN 33.1 pg (27.0-33.0); MEAN CORPUSCULAR HGB CONC 33.7 g/dl (32.0-36.5); MEAN CORPUSCULAR VOLUME 98.2 fl (80.0-96.0); RED BLOOD COUNT 2.75 10^6/uL (4.00-5.40); WHITE BLOOD COUNT 11.1 10^3/uL (4.0-10.0)
[2020-10-08 05:34] LABS: PLATELET COUNT, AUTOMATED 60 10^3/uL (150-450)
[2020-10-08 05:43] LABS: ABG BASE EXCESS 1.6 (-2.0-2.0); ABG HCO3 22.6 MEQ/L (22.0-26.0); ABG O2 SATURATION 98.2 % (95.0-99.0); ABG PARTIAL PRESSURE CO2 23.9 mmHg (35.0-45.0); ABG PARTIAL PRESSURE O2 141.4 mmHg (75.0-100.0); ABG TOTAL CO2 23.4 MEQ/L (22.0-29.0); ABG pH (ARTERIAL) 7.594 UNITS (7.350-7.450)
[2020-10-08 06:00] LABS: ALBUMIN 1.4 GM/DL (3.2-5.2); ALT/SGPT 16 U/L (12-78); BILIRUBIN,TOTAL 1.1 MG/DL (0.2-1.0); BLOOD UREA NITROGEN 8 MG/DL (7-18); CALCIUM LEVEL 7.4 MG/DL (8.5-10.1); CARBON DIOXIDE LEVEL 24 MEQ/L (21-32); CHLORIDE LEVEL 102 MEQ/L (98-107); CHOLESTEROL LEVEL 57 MG/DL (< 200); CPK CREATINE PHOSPHOKINASE 20 U/L (26-192); CREATININE FOR GFR 0.26 MG/DL (0.55-1.30); GLOMERULAR FILTRATION RATE > 60.0 (>51); GLUCOSE, FASTING 105 MG/DL (70-100); LDH LACTATE DEHYDROGENASE 288 U/L (84-246); MAGNESIUM LEVEL 1.7 MG/DL (1.8-2.4); PHOSPHORUS LEVEL 1.3 MG/DL (2.5-4.9); POTASSIUM SERUM 2.9 MEQ/L (3.5-5.1); SODIUM LEVEL 137 MEQ/L (136-145); TOTAL PROTEIN 4.3 GM/DL (6.4-8.2); TRIGLYCERIDES LEVEL 72 MG/DL (<150)
[2020-10-08] MEDS: NOREPINEPHRINE BITARTRATE 8 MG in D5W 492 ML IV SCH ×2 (06:00→22:00)
[2020-10-08] MEDS: HumaLOG INSULIN (NovoLOG) PER UNIT SC SCH ×3 (06:00→18:00)
[2020-10-08 06:03] LABS: LYMPHOCYTES 7 % (16-44); METAMYELOCYTES 2 % (0-0); MONOCYTES 4 % (0-5); MYELOCYTES 2 % (0-0); NEUTROPHILS 80 % (28-66); PLATELET ESTIMATE DECREASED (NORMAL)
[2020-10-08 06:04] LABS: ANISOCYTOSIS 2+; POLYCHROMASIA 1+
[2020-10-08 06:05] LABS: TOXIC GRANULATION 1+
[2020-10-08] MEDS ORDERED: MAG SULF 1GM/100ML (MAG RUN) 1 GM in IV 1 EA IV ONE (06:30)
[2020-10-08] MEDS ORDERED: POTASSIUM CHLORIDE 10% LIQ 20 MEQ/15 ML UDC PO SCH (06:30)
[2020-10-08] MEDS: MIDAZOLAM INJ 2MG/2ML VIAL (J2250 PER 1MG) IV PRN ×2 (07:44→15:36)
--- NOTE | 2020-10-08 08:28 | REP ---
INDICATION: Ett. COMPARISON: Comparison portable chest x-ray October 07, 2020. Comparison chest CT October 07, 2020. TECHNIQUE: Portable upright AP chest radiograph. FINDINGS: Endotracheal tube is seen in good position at the level of the transverse aorta. NG tube enters the left upper quadrant. Right-sided PICC line terminates in the expected location of superior vena cava. Monitoring electrodes and oxygen delivery tubing are again seen. Peripheral infiltrates are seen at the perihilar level bilaterally and in the lung bases similar to CT findings. There is no evidence of pneumothorax or hydrothorax.. IMPRESSION: Bilateral infiltrates. Lines and catheters as above.. <Electronically signed by Davin Molina > 10/08/20 [id number]
[2020-10-08] MEDS ORDERED: GLUCAGON INJ 1MG VIAL SC PRN (08:35)
[2020-10-08] MEDS ORDERED: GLUCOSE 4GM CHEW TABLET PO PRN (08:35)
[2020-10-08] MEDS ORDERED: DEXTROSE 50% 50 ML SYRINGE IV PRN (08:35)
[2020-10-08] MEDS: LR 1,000 ML IV SCH ×2 (08:38→18:55)
[2020-10-08] MEDS: CHLORHEXIDINE GLUCONATE 0.12 % 15ML UDC (PERIDEX ORAL RINSE) MT SCH ×2 (08:39→21:00)
[2020-10-08] MEDS ORDERED: KCL 20MEQ IN 100ML SWI (KRUN) 20 MEQ in IV 1 EA IV ONE ×2 (09:00)
--- NOTE | 2020-10-08 09:18 | IPNPDOC ---
Subjective Date Seen The patient was seen on 10/08/20. Subjective Chief Complaint/HPI HPI: Patient was seen and examined at bedside this morning in the ICU. She is still intubated on Pressure control mode. She is requiring less levophed to maintain her MAP >65. She has approx 35-45 mL/h of urine output and about 500 mL of output from her NG tube since yesterday. Currently, she is being transfused 1 unit of platelet. Her most recent hemoglobin is 9, which may have some dilutional component since she received about 1.5L of fluids yesterday. 2 PRBCs are ordered, but on hold currently to be transfused if needed. Overnight, she spiked a Tmax of 102.6 rectally but responded to Tylenol; she required 1 dose of versed for agitation. Patient is protein deficient (albumin 1.4) and may require a central line for TPN at some point today. Electrolyte abnormalities are being actively repleted. Review of systems unable to obtain due to intubation PHYSICAL EXAM: Vital signs: Please see below I&Os: Approx 2.2 L In; approx 1.6 L out. Net pos 567ml Gen/Neuro: Sedated and intubated, currently on pressure control setting HEENT: Normocephalic, atraumatic, pupils reactive to light bilaterally, mucous membrane moist, pale conjunctiva, NG tube in L naris Cardio: Normal S1, S2,Tachycardic, able to appreciate any murmurs Pulm: Coarse ventilator breath sounds heard bilaterally, mild rhonci appreciated. No wheezing. diminished breath sounds at lung bases Abdomen: Soft, nondistended, hypoactive bowel sounds Extremities: Ecchymosis noted on her left antecubital area of left arm, no significant lower extremity edema noted bilaterally. Labs: Please see below Imagin/27 Chest x-ray impression bilateral infiltrates seen at the Perihilar level. No evidence of pneumothorax or hydrothorax. Right-sided PICC line terminating in the expected location of SVC, NG tube in appropriate location, ET tube in good position at the level of the transverse aorta. ASSESSMENT AND PLAN: This is a 55-year-old elderly female with past medical history of metastatic breast cancer, status post chemotherapy, who presented initially with abdominal pain, nausea, vomiting as well as diarrhea. Her initial imaging on 09/26 presented with more a enteritis picture which may have been secondary to chemotherapy agents vs functional partial obstruction. She was initially treated conservatively with NG tube decompression with good outputs and no signs of abdominal distension or pain on palpation. However, more recent imagings have shown a more obstructive like pattern without a clear distinct transition point, but there is no free air seen or any signs of threatened/ischemic bowel. Of note, pt had an episode of aspiration and had a decompensation of her respiratory status and was tachy and tachynpenic and required transfer to ICU. She was subsequently intubated and put on pressors (levophed) to maintain BP MAP >65. Her condition is slightly improved from yesterday and she is requiring less levophed to maintain MAP of 65, has adequate urine and NG tube outputs. General surgery (Dr. Charlton) spoke at length with pt's at bedside yesterday afternoon and obtained consent for surgery. The plan is to optimally replete her electrolytes and start TPN for nutrition and to bring her to the OR for diagnostic laparoscopy this afternoon. Assessment /Plan Plan/VTE VTE Prophylaxis Ordered?: Yes (TEDS/SCDs) VS, I&O, [facility] Vital Signs/I&O Vital Signs Date Time Temp Pulse Resp B/P (MAP) Pulse Ox O2 Delivery O2 Flow Rate FiO2 10/08/20 08:15 108 22 125/57 (79) 99 Ventilator 35 10/08/20 08:00 99.9 10/07/20 13:15 15.0 I&O- Last 24 Hours up to 6 AM 10/08/20 06:00 Intake Total 1441 ml Output Total 1605 ml Balance -164 ml Laboratory Data 24H LABS Laboratory Tests 2 10/07/20 10:09: Blood Gas Bicarbonate Standard 22.0, Arterial Blood pH 7.326L, Arterial Blood Partial Pressure CO2 45.1H, Arterial Blood Partial Pressure O2 110.4H, Arterial Blood Total CO2 24.4, Arterial Blood HCO3 23.0, Arterial Blood Base Excess - 3.0L, Arterial Blood Oxygen Saturation 97.1 10/07/20 10:37: Lactic Acid Level 1.6 10/07/20 14:05: Blood Gas Bicarbonate Standard 22.1, Arterial Blood pH 7.363, Arterial Blood Partial Pressure CO2 40.1, Arterial Blood Partial Pressure O2 107.0H, Arterial Blood Total CO2 23.5, Arterial Blood HCO3 22.3, Arterial Blood Base Excess - 2.9L, Arterial Blood Oxygen Saturation 97.4 10/07/20 15:40: Coronavirus (COVID-19)(PCR) NEGATIVE 10/07/20 17:13: Anion Gap 9, Glomerular Filtration Rate > 60.0, Calcium Level 8.0L, Phosphorus Level 2.2L, Albumin 1.5L 10/08/20 05:13: Anion Gap 11, Glomerular Filtration Rate > 60.0, Calcium Level 7.4L, Phosphorus Level 1.3#L, Albumin 1.4L, Neutrophils (%) (Auto) , Nucleated Red Blood Cells % (auto) 0.0, Neutrophils 80H, Band Neutrophils 5, Lymphocytes (Manual) 7L, Monocytes (Manual) 4, Metamyelocytes 2H, Myelocytes 2H, Polychromasia 1+, Anisocytosis 2+, Toxic Granulation 1+, Platelet Estimate DECREASED, Immature Platelet Fraction 7.2, Magnesium Level 1.7L, Total Bilirubin 1.1H, Aspartate Amino Transf (AST/SGOT) 24, Alanine Aminotransferase (ALT/SGPT) 16, Alkaline Phosphatase 70, Lactate Dehydrogenase 288H, Total Creatine Kinase 20L, Total Protein 4.3L, Albumin/Globulin Ratio 0.5L, Triglycerides Level 72, Cholesterol Level 57 10/08/20 05:38: Blood Gas Bicarbonate Standard 26.0, Arterial Blood pH 7.594H, Arterial Blood Partial Pressure CO2 23.9L, Arterial Blood Partial Pressure O2 141.4H, Arterial Blood Total CO2 23.4, Arterial Blood HCO3 22.6, Arterial Blood Base Excess 1.6, Arterial Blood Oxygen Saturation 98.2 CBC/BMP Laboratory Tests 10/07/20 17:13 10/08/20 05:13 Microbiology Microbiology 10/02/20 Urine Culture - Final, Complete 10/02/20 Blood Culture - Final, Complete NO GROWTH AFTER 5 DAYS 10/02/20 Blood Culture - Final, Complete NO GROWTH AFTER 5 DAYS GME ATTESTATION GME ATTESTATION My faculty preceptor for this patient encounter was physically present during the encounter and was fully available. All aspects of the patient interview, examination, medical decision making process, and medical care plan development were reviewed and approved by the faculty preceptor. The faculty preceptor is aware and concurs with the plan as stated in the body of this note and will attest to such by his/her cosignature. Cindy Malagon DO Oct 08, 2020 09:17
--- NOTE | 2020-10-08 11:56 | CCN ---
CRITICAL CARE NOTE DATE: 10/08/2020 SUBJECTIVE: The patient was seen in the Intensive Care Unit intubated and mechanically ventilated, critically ill. This is hospital day #6, ICU day #2, endotracheal tube day #2. As noted, she did suffer respiratory failure after her visit yesterday requiring endotracheal tube intubation. She is now ventilated and sedate with intermittent use of Versed. Levophed has been initiated. The dose has been worked down to 6 mcg per minute. Urine output is adequate. OBJECTIVE: VITAL SIGNS: At bedside her vital signs are temperature 100, pulse rate 103, respirations 18, blood pressure 97/50. I and O for the past 24 hours was 1441 in and 840 out, since midnight 0 in and 765 out. GENERAL: At bedside, she is ill appearing and cachectic. HEENT: Mucosa are moist. The endotracheal tube is at 22 cm, and NG tube is draining bilious material. NECK: Supple. HEART: Heart sounds regular without appreciable murmur. LUNGS: Breath sounds with diffuse scattered rales and rhonchi. ABDOMEN: Soft with no appreciable bowel sounds. No palpable mass. EXTREMITIES: Extremities are cool. Muscle weakness is noted. LABORATORY DATA: Diagnostic studies reviewed. Her CBC showed a white count up to 11.1, hemoglobin is down to 9.1 from 11.6, hematocrit is 27, platelet count 60. Differential: White cell count shows 80% neutrophils. There are metamyelocytes and myelocytes noted. Electrolytes were obtained. Her sodium is 137, potassium is down to 2.9, chloride 102, CO2 24, BUN 8, creatinine 0.26, glucose 105. The calcium is 7.4 and an albumin of 1.4. Phosphorus is down to 1.3 from 2.2. Magnesium is 1.7. Bilirubin is 1.1. The AST is 24, ALT 16, LDH 288. The arterial blood gases show a pH of 7.59, pCO2 23, pO2 141. This is on a pressure control mode, a ventilation rate of 18, peak pressure 25 over PEEP of 5, FiO2 0.35. Imaging studies were reviewed. Chest x-ray shows tubes and lines to be in good position. Bilateral fluffy infiltrates persist. Formal report is pending. MEDICATIONS: On medications review, she is receivin. Zosyn 3.375 q.6. 2. Protonix 40 mg q.day. 3. Xopenex and ipratropium nebulized therapy. 4. Versed p.r.n. 5. Levophed titrated to mean arterial pressure of 65. PRIMARY PROBLEMS REQUIRING CRITICAL ATTENTION: 1. Acute respiratory failure. Patient is now on mechanical ventilation. Her gas exchange is acceptable. We will adjust the minute ventilation and follow gas exchange. 2. Septic shock. The patient is receiving broad spectrum antibiotics with Zosyn. Will begin IV fluids and titrate pressors to a mean arterial pressure of 65. 3. Aspiration pneumonia. Infiltrates are slightly better on imaging. 4. Bowel obstruction. Surgery is planned for later in the day to investigate the cause. 5. Thrombocytopenia. I discussed this issue with Hematology, and they feel it may be relate to chronic chemotherapy use. The low platelet count has been longstanding. Platelet transfusion will be performed preoperatively. 6. Hypokalemia, hypophosphatemia, and hypomagnesemia. Some of these electrolyte abnormalities are amplified by the relative alkalosis on arterial blood gases this morning. However, we will replace the electrolytes and recheck them at noon. 7. Anemia. The patient's hemoglobin has dropped 2 grams in the past 24 hours. I cannot explain this based on volume status changes and, therefore, suspect blood loss. The etiology is not entirely clear. 8. DVT prophylaxis being addressed with sequential hose and TEDS. 9. Ulcer prophylaxis being addressed with Protonix. 10. Glycemic control. Will arrange for finger stick blood sugars with coverage. 11. Protein-calorie malnutrition. The patient will require TPN in the postoperative interval. I have discussed the case with the attending hospitalist service, general surgery, and hematology/oncology. I have updated the ICU nursing team on the patient's status and care plans for the day, and 127 minutes was spent in the provision of bedside critical care and coordination excluding any time for the performance of procedures.
[2020-10-08] MEDS ORDERED: POTASSIUM PHOSPHATE INJ 20 MMOL in D5W 250 ML IV ONE (12:00)
[2020-10-08] MEDS: PANTOPRAZOLE 40MG VIAL (C9113 PER 1) IV SCH (15:36)
[2020-10-08] MEDS ORDERED: LIDOCAINE 1% SDV 30ML VIAL As Ordered ONE (15:46)
[2020-10-08] MEDS ORDERED: BUPIVACAINE HCL 0.25% 30ML VIAL As Ordered ONE (15:46)
[2020-10-08 16:01] LABS: ALBUMIN 1.4 GM/DL (3.2-5.2); BLOOD UREA NITROGEN 9 MG/DL (7-18); CALCIUM LEVEL 7.8 MG/DL (8.5-10.1); CARBON DIOXIDE LEVEL 27 MEQ/L (21-32); CHLORIDE LEVEL 102 MEQ/L (98-107); CREATININE FOR GFR 0.29 MG/DL (0.55-1.30); GLOMERULAR FILTRATION RATE > 60.0 (>51); GLUCOSE, FASTING 153 MG/DL (70-100); PHOSPHORUS LEVEL 2.8 MG/DL (2.5-4.9); POTASSIUM SERUM 3.7 MEQ/L (3.5-5.1); SODIUM LEVEL 135 MEQ/L (136-145)
[2020-10-08] MEDS ORDERED: fentaNYL 250 MCG/5 ML INJECTION (J3010) As Ordered ONE (16:32)
[2020-10-08] MEDS ORDERED: ROCURONIUM BROMIDE 50 MG/5 ML VIAL As Ordered ONE (16:37)
[2020-10-08] MEDS ORDERED: dexameTHASONE 4 MG/ML 1ML VIAL (J1100 PER 1MG) As Ordered ONE (16:46)
[2020-10-08] MEDS ORDERED: PHENYLephrine 500MCG 5ML (100MCG/ML) SYRINGE As Ordered ONE (16:46)
[2020-10-08] MEDS ORDERED: HYDROmorphone HCL 2 MG/ML 1ML VIAL (J1170) As Ordered ONE (17:11)
[2020-10-08] MEDS ORDERED: ONDANSETRON 4MG/2ML VIAL As Ordered ONE (17:40)
--- NOTE | 2020-10-08 18:19 | IPNPDOC ---
Text Note Date of Service The patient was seen on 10/08/20. NOTE Subjective: Patient seen and examined at bedside. Follows simple commands. She required intubation with mechanical ventilation late yesterday afternoon. 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 Patient reported that she with her primary care providers office because of weakness and diarrhea for the last 1 week. Patient reports that her diarrhea has been occurring 1-2 times a day. Patient describes as watery without any evidence of blood. While at the primary cares office. Patient was noted to be hypotensive and tachycardic and was subsequently sent to the emergency room for further evaluation. #Sepsis - possibly 2/2 pneumonia (possibly healthcare associated) and now aspiration pneumonia, possibly 2/2 intra-abdominal etiology - MRSA negative - Blood cultures 10/02: No growth at 72 hours - UA negative; Urine culture 10/02: Negative - c/w Zosyn (Day #7) #Acute hypoxic respiratory failure - likely 2/2 above - intubated with mechanical ventilation - follow as per pulmonology/vocal performer #Suspected small bowel obstruction - Patient had an NG tube placed, but was removed for/24 - Has continued to have bowel movements; diarrhea - Imaging noted above - Will reinsert NG tube - General surgery on consultation - plan for OR today #s/p Lactic acidosis #Hyponatremia - likely 2/2 hypotonic hypovolemic - Mild - Will continue to monitor #Hypokalemia - Will supplement via IV route #s/p Pancytopenia - likely secondary to chemotherapy - Counts appear to be improving - Thrombocytopenia remains relatively stable - No evidence of bleed - s/p 2 units PRBC #hyperbilirubinemia - Improving - Hepatitis profile negative - Imaging noted above #Stage IV metastatic invasive ductal carcinoma of the breast - Dx 03/2016 - Patient has received multiple rounds of chemotherapy in the past - Has received adjuvant radiation therapy - PET scan completed 07/2020 has shown evidence of progressive pleural hypermetabolic soft tissues starting and for new hypermetabolic metastatic foci in the liver - Patient was started on Capecitabine chemotherapy on 08/18/[address] Connors #Gastrointestinal prophylaxis - c/w Protonix #DVT prophylaxis - c/w TEDs/Sequentials (re: Thrombocytopenia) Prognosis: - Poor Code Status: - Full Disposition: - pending clinical improvement - OR today for SBO VS,Fishbone, I+O VS, Fishbone, I+O Laboratory Tests 10/08/20 05:13 10/08/20 15:19 Vital Signs Date Time Temp Pulse Resp B/P (MAP) Pulse Ox O2 Delivery O2 Flow Rate FiO2 10/08/20 16:15 109 20 102/59 (73) 100 Ventilator 35 10/08/20 16:00 99.0 10/07/20 13:15 15.0 I&O- Last 24 Hours up to 6 AM 10/08/20 06:00 Intake Total 1441 ml Output Total 1605 ml Balance -164 ml MILDRED FINE MD Oct 08, 2020 18:19
[2020-10-08] MEDS ORDERED: NS 500 ML IV ONE (18:55)
--- NOTE | 2020-10-08 19:03 | REP ---
INDICATION: CENTRAL LINE PLACEMENT. COMPARISON: Comparison chest x-ray October 08, 2020. TECHNIQUE: Portable upright AP chest radiograph. FINDINGS: A right-sided PICC line is noted in place with its tip in the expected location of the superior vena cava. A right subclavian catheter is been inserted which also terminates in the expected location of the superior vena cava. There is no evidence of pneumothorax. Bilateral lower lobe peripheral infiltrates persist unchanged from this morning's radiograph. Endotracheal and nasogastric tubes remain in place.. IMPRESSION: Right subclavian catheter noted in the expected location of the SVC along side the right-sided PICC line. Endotracheal and nasogastric tubes in place. No evidence of pneumothorax.. <Electronically signed by Davin Molina > 10/08/20 [id number]
[2020-10-09] VITALS (22 sets, daily range): BP systolic 90–131; BP diastolic 51–61; O2SAT 99
[2020-10-09] MEDS: LEVALBUTEROL 1.25 MG/0.5 ML CONCENTRATE NEB INH SCH ×4 (02:59→19:45)
[2020-10-09] MEDS: IPRATROPIUM 0.02% SOLN 0.5MG 2.5ML NEB INH SCH ×4 (02:59→19:45)
[2020-10-09] MEDS ORDERED: ZOSYN 3.375GM VIAL (J2543) As Ordered ONE ×2 (05:03→05:05)
[2020-10-09 05:15] LABS: ABG BASE EXCESS 1.6 (-2.0-2.0); ABG O2 SATURATION 97.8 % (95.0-99.0); ABG PARTIAL PRESSURE CO2 29.9 mmHg (35.0-45.0); ABG PARTIAL PRESSURE O2 114.9 mmHg (75.0-100.0); ABG STANDARD HCO3 25.9 MEQ/L (22.0-26.0); ABG TOTAL CO2 24.9 MEQ/L (22.0-29.0); ABG pH (ARTERIAL) 7.522 UNITS (7.350-7.450)
[2020-10-09 05:19] LABS: HEMATOCRIT 24.4 % (36.0-47.0); HEMOGLOBIN 8.1 g/dl (12.0-15.5); MEAN CORPUSCULAR HEMOGLOBIN 32.7 pg (27.0-33.0); MEAN CORPUSCULAR HGB CONC 33.2 g/dl (32.0-36.5); MEAN CORPUSCULAR VOLUME 98.4 fl (80.0-96.0); RED BLOOD COUNT 2.48 10^6/uL (4.00-5.40); WHITE BLOOD COUNT 4.8 10^3/uL (4.0-10.0)
[2020-10-09 05:26] LABS: PLATELET COUNT, AUTOMATED 59 10^3/uL (150-450)
[2020-10-09] MEDS: PIPERACILLIN/TAZOBACTAM SOD 3.375 GM in D5W MINI-BAG PLUS 50 ML IV SCH ×4 (05:49→22:14)
[2020-10-09] MEDS: LR 1,000 ML IV SCH (05:49)
[2020-10-09 05:51] LABS: ALBUMIN 1.2 GM/DL (3.2-5.2); ALT/SGPT 14 U/L (12-78); BILIRUBIN,TOTAL 0.7 MG/DL (0.2-1.0); BLOOD UREA NITROGEN 10 MG/DL (7-18); CALCIUM LEVEL 7.4 MG/DL (8.5-10.1); CARBON DIOXIDE LEVEL 27 MEQ/L (21-32); CHLORIDE LEVEL 106 MEQ/L (98-107); CHOLESTEROL LEVEL 77 MG/DL (< 200); CPK CREATINE PHOSPHOKINASE 19 U/L (26-192); CREATININE FOR GFR 0.16 MG/DL (0.55-1.30); GLOMERULAR FILTRATION RATE > 60.0 (>51); GLUCOSE, FASTING 104 MG/DL (70-100); LDH LACTATE DEHYDROGENASE 248 U/L (84-246); PHOSPHORUS LEVEL 1.8 MG/DL (2.5-4.9); POTASSIUM SERUM 3.7 MEQ/L (3.5-5.1); SODIUM LEVEL 139 MEQ/L (136-145); TOTAL PROTEIN 4.2 GM/DL (6.4-8.2); TRIGLYCERIDES LEVEL 98 MG/DL (<150)
[2020-10-09 05:54] LABS: LYMPHOCYTES 15 % (16-44); MONOCYTES 2 % (0-5); NEUTROPHILS 81 % (28-66)
[2020-10-09 05:55] LABS: ANISOCYTOSIS 2+; PLATELET ESTIMATE DECREASED (NORMAL)
[2020-10-09] MEDS: HumaLOG INSULIN (NovoLOG) PER UNIT SC SCH ×5 (06:00→23:39)
--- NOTE | 2020-10-09 07:47 | ROOPDOC ---
[facility] Report Of Operation Report of Operation DATE OF PROCEDURE: 10/08/20 PREPROCEDURE DIAGNOSES: small bowel obstruction. POSTPROCEDURE DIAGNOSES: ileus (functional obstruction) no mechanical obstruction found. PROCEDURE: Diagnostic Laparoscopy. SURGEON: Vince Charlton MD BRASS MOLDER HELPER: ANESTHESIA: General Endotracheal Anesthesia. ESTIMATED BLOOD LOSS: Approximately 10 mL. COMPLICATIONS: small puncture to the lower left lobe of the liver from Veress, no active bleeding. REMARKS: 55 F with metastatic breast cancer to the right pleura, liver presents with possible bowel obstruction but also with pneumonia, dehydration and hypoxemia. Initially she was treated with nonoperative therapy with nasogastric tube bowel decompression while she was IV fluid resuscitated and treated with antibiotics for her pneumonia. Unfortunately she had an aspiration event that worsened her hypocalcemia that she ended up being intubated yesterday. She continues to have abdominal bowel distention with an obstructive-like picture and follow-up x-rays. Thus I decided to bring her to the operating room for diagnostic laparoscopy. PROCEDURE NOTE: Liver is moderately enlarged, fatty replaced. Nodules consistent with metastasis is visualized on the right lobe surface. Multiple loops of dilated small bowel with some reactive hyperemia with tapering of the caliber to the terminal ileum. I ran the bowel 3 times and did not find any mechanical cause of obstruction. DESCRIPTION OF PROCEDURE: Patient was brought from the ICU to the operating room. She is intubated. A Burnett catheter in place. She has been weaned off vasopressor support from last night. She has an NG tube in place draining dark bilious fluid. She was transferred to the procedure table. Both arms were tucked. Compression boots placed in both lower extremities as well as TEDs for DVT prophylaxis. She is already on empiric antibiotic support. Her abdomen was then widely prepped and draped in the usual sterile fashion.We paused for a surgical timeout using both pre-incision safety checklist to verify correct patient, procedure site and additional clinical information prior to beginning the procedure I began the laparoscopy with a left upper quadrant and 3. A Veress needle was inserted in a controlled fashion. Proper placement confirmed with saline drop technique. CO2 insufflation and started to a pressure of 15 mmHg. Using the same incision, a 5 mm optical port was placed under direct vision of laparoscope. Insertion site was inspected for injury and none was found. She was placed in the mild Trendelenburg position tilted towards the left side. I placed a 5 mm periumbilical port and another 5 mm port over the left lower quadrant area and left of the midline suprapubic area. Using this for working ports and switching between them I ran her small bowel to look for any signs of mechanical obstruction. On entry, there are dilated loops of proximal small bowel over the left upper quadrant area also occupying the mid abdomen. There is some slight erythema to the bowel. There is a small amount of serous fluid in the gutters. There is no sign of perforation or succus or enteric fluid. VINCE CHARLTON MD Oct 09, 2020 07:47
--- NOTE | 2020-10-09 08:13 | REP ---
INDICATION: Ett. COMPARISON: Comparison chest radiograph 08 October 2020. TECHNIQUE: Portable upright AP chest radiograph. FINDINGS: Endotracheal tube remains in good position at the level of the transverse aorta. NG tube enters the left upper quadrant of the abdomen. Right subclavian and right-sided PICC lines terminate in the expected location of the superior vena cava. Heart is not enlarged. Bilateral and fairly large infiltrates persist in the lung malave. No new pulmonary parenchymal consolidation is seen.. IMPRESSION: Extensive by basilar infiltrates. Lines and catheters as above unchanged.. <Electronically signed by Davin Molina > 10/09/20 [id number]
--- NOTE | 2020-10-09 09:11 | RO ---
OPERATIVE NOTE DATE OF OPERATION: 10/08/2020 PREOPERATIVE DIAGNOSES: 1. Hypotension. 2. Insufficient venous access. POSTOPERATIVE DIAGNOSES: 1. Hypotension. 2. Insufficient venous access. PROCEDURE PERFORMED: Right subclavian CVP placement. SURGEON: Vince Calderon M.D. DRYWALL PROFESSIONAL: None. ANESTHESIA: DESCRIPTION OF PROCEDURE: The patient was seen on return from the operating room sedate, intubated, and mechanically ventilated with low blood pressure and insufficient venous access. Pressors were necessary and an emergent right subclavian CVP was felt needed to administer them. The patient was placed in the supine position. The skin overlying the right subclavian vein was prepped with ChloraPrep and draped in a sterile fashion. A 25-gauge needle was used to raise a skin wheel of 1% Lidocaine. Thereafter, a 17-gauge introducer needle was placed in through the skin and into the right subclavian vein. Free return of venous blood was obtained. A vascular tipped guidewire was advanced, a small incision made adjacent to the guidewire, and a triple-lumen catheter placed over the guidewire to a distance of 16 cm. The catheter was secured in place. Postprocedural chest x-ray confirmed adequate placement and there were no complications.
--- NOTE | 2020-10-09 09:52 | IPNPDOC ---
Text Note Date of Service The patient was seen on 10/09/20. NOTE Subjective: Patient seen and examined at bedside. Groggy and lethargic, but following commands and answering questions. She is post op day #1 for ex-lap of the abdomen. She is off presser support. No acute overnight events reported, no new medical complaints this morning. 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 Patient reported that she with her primary care providers office because of weakness and diarrhea for the last 1 week. Patient reports that her diarrhea has been occurring 1-2 times a day. Patient describes as watery without any evidence of blood. While at the primary cares office. Patient was noted to be hypotensive and tachycardic and was subsequently sent to the emergency room for further evaluation. #Sepsis - possibly 2/2 pneumonia (possibly healthcare associated) and now aspiration pneumonia, possibly 2/2 intra-abdominal etiology - MRSA negative - Blood cultures 10/02: No growth at 72 hours - UA negative; Urine culture 10/02: Negative - Zosyn Day #8 - anticipating completing 10 days #Acute hypoxic respiratory failure - likely 2/2 above - intubated with mechanical ventilation - follow as per pulmonology/building services technician #Suspected small bowel obstruction - NG tube in place - General surgery on consultation - post op day #1 for exploratory lap, no acute findings #s/p Lactic acidosis #Hyponatremia - likely 2/2 hypotonic hypovolemic - Mild - Will continue to monitor #Hypokalemia - Will supplement via IV route #s/p Pancytopenia - likely secondary to chemotherapy - Thrombocytopenia remains relatively stable - No evidence of bleed - s/p 2 units PRBC #anemia - recheck H/H this afternoon #hyperbilirubinemia - Improving - Hepatitis profile negative - Imaging noted above #Stage IV metastatic invasive ductal carcinoma of the breast - Dx 03/2016 - Patient has received multiple rounds of chemotherapy in the past - Has received adjuvant radiation therapy - PET scan completed 07/2020 has shown evidence of progressive pleural hypermet abolic soft tissues starting and for new hypermetabolic metastatic foci in the liver - Patient was started on Capecitabine chemotherapy on 08/18/[address] Connors #Gastrointestinal prophylaxis - c/w Protonix #DVT prophylaxis - c/w TEDs/Sequentials (re: Thrombocytopenia) Prognosis: - Poor Code Status: - Full Disposition: - pending clinical improvement - weaning trial today or tomorrow VS,Fishbone, I+O VS, Fishbone, I+O Laboratory Tests 10/08/20 15:19 10/09/20 04:32 Vital Signs Date Time Temp Pulse Resp B/P (MAP) Pulse Ox O2 Delivery O2 Flow Rate FiO2 10/09/20 06:00 107 114/56 (75) 99 10/09/20 04:00 35 10/09/20 04:00 97.7 18 Ventilator 10/07/20 13:15 15.0 I&O- Last 24 Hours up to 6 AM 10/09/20 06:00 Intake Total 2846 ml Output Total 1195 ml Balance 1651 ml MILDRED FINE MD Oct 09, 2020 09:52
[2020-10-09] MEDS: CHLORHEXIDINE GLUCONATE 0.12 % 15ML UDC (PERIDEX ORAL RINSE) MT SCH (09:58)
[2020-10-09] MEDS ORDERED: POTASSIUM PHOSPHATE INJ 20 MMOL in D5W 250 ML IV ONE (10:00)
--- NOTE | 2020-10-09 11:19 | CCN ---
CRITICAL CARE NOTE DATE: 10/09/2020 SUBJECTIVE: The patient is seen in the intensive care unit intubated, mechanically ventilated, and critically ill. This is hospital day #8 and ICU day #2. Postop day #1 laparotomy and right subclavian catheter placement day #1. Through the night, blood pressure has responded to fluid resuscitation and pressors have been weaned off. OBJECTIVE: VITAL SIGNS: At bedside, her temperature is 97.7, T-max over the past 24 hours 102.6, pulse rate 107, respirations 18, blood pressure 114/56. INTAKE AND OUTPUT: For the past 24 hours, 2156 in and 1655 out; since midnight 740 in and 305 out. Her central venous pressure currently measures 6. GENERAL: At bedside, she is ill-appearing. HEENT: Her mucosa is dry. Endotracheal tube and nasogastric tubes are in good position. NECK: Supple. No meningismus. HEART: Sounds are regular without appreciable murmur. LUNGS: Breath sounds are coarse and diminished with some large airway sounds and no overt wheezing. ABDOMEN: Soft. No appreciable bowel sounds. NG is draining bilious maternal. EXTREMITIES: Muscle weakness is noted. DIAGNOSTIC STUDIES: Her white cell count is down to 4.8, hemoglobin is down to 8.1 from 9.1, hematocrit 24.4, platelet count 59,000. Differential white cell count shows 81% neutrophils and 2 bands. The electrolytes are sodium 139, potassium 3.7, chloride 106, CO2 of 27, BUN of 10, creatinine 0.16, glucose 104, calcium 7.4, phosphorus 1.8 down from 2.8. Liver enzymes are stable with AST 20 and ALT 14. The LDH is 248, albumin 1.2. Arterial blood gases show a pH of 7.52, pCO2 of 29, pO2 of 114. This is on a pressure control mode of ventilation rate of 18, peak 20/over PEEP of 5, and FiO2 of 0.35. Chest imaging shows tubes and lines to be in good position. There is prominence in the interstitium of the lungs. No new focal infiltrates are appreciated. MEDICATIONS: On review, she is receiving Zosyn 3.375 q. 6, Xopenex and ipratropium q.i.d., lactated ringers at 80 mL/hour, and Levophed has been weaned off. ASSESSMENT AND PLAN: 1. The primary problem requiring critical attention is acute respiratory failure. Arterial blood gas results are acceptable. I will decrease minute ventilation and attempt to proceed with weaning. 2. Shock. The patient's Levophed has been discontinued. Her blood pressure remains marginal. We will continue fluid resuscitation and monitoring of central pressures. 3. Aspiration pneumonia. Chest x-ray showed little change. 4. Bowel obstruction. She is postop day one from laparotomy. The bowel obstruction was function. Would continue with decompression. 5. Anemia. Her hemoglobin and hematocrit (H&H) have dropped some and the etiology is not entirely clear. Blood loss at surgery was minimal. Will recheck her H&H at 6 p.m. and plan for a transfusion threshold of hemoglobin of 7. 6. Thrombocytopenia. This is a chronic problem felt related to chemotherapy from her metastatic breast cancer. 7. Hypophosphatemia. Will replace and recheck at 6 p.m. 8. Metastatic breast cancer with liver and pleural metastasis. I have discussed the patient's status with medical oncology. She will reestablish with that service once her critical illness has passed. 9. Deep vein thrombosis (DVT) prophylaxis is being addressed with sequential hose and TEDs. We are holding anticoagulation in light of the fall in hemoglobin and hematocrit. 10. Ulcer prophylaxis being addressed with Protonix. 11. Glycemic control will be addressed with fingerstick blood sugars and coverage. 12. Protein-calorie malnutrition. Will initiate total parenteral nutrition (TPN) today in an effort to augment caloric needs. I have reviewed the case with surgery and the attending hospitalist group. I have spoken with the patient's and have given him an update on her status. Her condition remains critical. Prognosis is guarded. The ICU team has been updated with status and care plan for the day. CRITICAL CARE TIME: 114 minutes spent in the provision of bedside critical care and coordination; excluding any time for the performance of procedures.
[2020-10-09] MEDS: LORazepam 2 MG/ML VIAL IV PRN (13:00)
[2020-10-09] MEDS: PANTOPRAZOLE 40MG VIAL (C9113 PER 1) IV SCH (16:15)
[2020-10-09] MEDS ORDERED: MULTIVITAMIN -ADULT INJECTION 10 ML, CR/CU/SE/MN/ZN INJ 1 ML in AMINO AC/ELECTROLYTE/DE... IV SCH (18:00)
[2020-10-09] MEDS ORDERED: FAT EMULSION IV 20% 500 ML IV SCH (18:00)
[2020-10-10] VITALS (17 sets, daily range): BP systolic 87–145; BP diastolic 50–69
[2020-10-10] MEDS ORDERED: LORazepam 2 MG/ML VIAL As Ordered ONE ×2 (00:43→23:47)
[2020-10-10] MEDS: LORazepam 2 MG/ML VIAL IV PRN ×3 (00:48→23:49)
[2020-10-10] MEDS: IPRATROPIUM 0.02% SOLN 0.5MG 2.5ML NEB INH SCH ×4 (01:31→19:38)
[2020-10-10] MEDS: LEVALBUTEROL 1.25 MG/0.5 ML CONCENTRATE NEB INH SCH ×4 (01:31→19:38)
[2020-10-10] MEDS: ACETAMINOPHEN TAB 650MG DOSE (2X325MG) PO PRN (03:54)
[2020-10-10] MEDS: PIPERACILLIN/TAZOBACTAM SOD 3.375 GM in D5W MINI-BAG PLUS 50 ML IV SCH ×4 (05:42→22:54)
[2020-10-10] MEDS: HumaLOG INSULIN (NovoLOG) PER UNIT SC SCH ×4 (05:49→23:41)
[2020-10-10 06:40] LABS: HEMATOCRIT 25.7 % (36.0-47.0); HEMOGLOBIN 8.2 g/dl (12.0-15.5); MEAN CORPUSCULAR HEMOGLOBIN 32.9 pg (27.0-33.0); MEAN CORPUSCULAR HGB CONC 31.9 g/dl (32.0-36.5); MEAN CORPUSCULAR VOLUME 103.2 fl (80.0-96.0); RED BLOOD COUNT 2.49 10^6/uL (4.00-5.40); WHITE BLOOD COUNT 7.3 10^3/uL (4.0-10.0)
[2020-10-10 06:41] LABS: ALBUMIN 1.3 GM/DL (3.2-5.2); ALT/SGPT 12 U/L (12-78); BILIRUBIN,TOTAL 0.3 MG/DL (0.2-1.0); BLOOD UREA NITROGEN 11 MG/DL (7-18); CALCIUM LEVEL 7.8 MG/DL (8.5-10.1); CARBON DIOXIDE LEVEL 30 MEQ/L (21-32); CHLORIDE LEVEL 108 MEQ/L (98-107); CHOLESTEROL LEVEL 89 MG/DL (< 200); CPK CREATINE PHOSPHOKINASE 18 U/L (26-192); CREATININE FOR GFR 0.24 MG/DL (0.55-1.30); GLOMERULAR FILTRATION RATE > 60.0 (>51); GLUCOSE, FASTING 157 MG/DL (70-100); LDH LACTATE DEHYDROGENASE 200 U/L (84-246); PHOSPHORUS LEVEL 1.4 MG/DL (2.5-4.9); POTASSIUM SERUM 3.2 MEQ/L (3.5-5.1); SODIUM LEVEL 142 MEQ/L (136-145); TOTAL PROTEIN 4.3 GM/DL (6.4-8.2); TRIGLYCERIDES LEVEL 110 MG/DL (<150)
[2020-10-10 06:55] LABS: PLATELET COUNT, AUTOMATED 65 10^3/uL (150-450)
[2020-10-10 07:13] LABS: LYMPHOCYTES 14 % (16-44); MONOCYTES 3 % (0-5); NEUTROPHILS 80 % (28-66)
[2020-10-10 07:14] LABS: PLATELET ESTIMATE NORMAL (NORMAL)
--- NOTE | 2020-10-10 08:23 | REP ---
INDICATION: ffup ileus. COMPARISON: Comparison KUB 10/07/2020.. TECHNIQUE: Supine film of the abdomen. KUB. FINDINGS: Multiple small bowel loops are again seen in the central abdomen. The loops are decreased in overall caliber but there is mural thickening which is more pronounced in the involved loops. There is more distal gas in the in the ascending and transverse colon. Some gas is seen in the rectum as well. The NG tube is noted in place in the distal stomach. IMPRESSION: Bowel loop dilation has improved but mural thickening is increased in central abdominal small bowel loops. There is more distal bowel gas. NG tube in place. <Electronically signed by Davin Molina > 10/10/20 0844
[2020-10-10] MEDS ORDERED: KCL 20MEQ IN 100ML SWI (KRUN) 20 MEQ in IV 1 EA IV ONE ×2 (11:00)
[2020-10-10] MEDS: METOCLOPRAMIDE INJ 10MG/2ML VIAL (J2765 PER 1) IV SCH ×2 (11:34→17:57)
[2020-10-10] MEDS ORDERED: POTASSIUM PHOSPHATE INJ 20 MMOL in D5W 250 ML IV ONE (13:00)
[2020-10-10] MEDS: MORPHINE 2 MG/ML 1ML VIAL (J2270) IV PRN ×3 (13:51→19:57)
--- NOTE | 2020-10-10 13:57 | CCN ---
CRITICAL CARE NOTE DATE: 10/10/2020 The patient is seen in the intensive care unit, having been weaned and extubated yesterday afternoon. Her saturations are acceptable on supplemental oxygen. At bedside she is ill appearing, cachectic. Her temperature is 98.2, pulse rate 103, respirations 28, blood pressure 107/57, oxygen saturation 95% with supplemental oxygen. Intake and output for the past 24 hours: 2010 in, 1160 out, of which 100 drained from the nasogastric (NG) tube. Since midnight, 0 in, 1330 out. Her central venous pressure currently measures 5. PHYSICAL EXAMINATION: Her pupils are responsive. Oral mucosa is pink. There is an orogastric tube and nasogastric tube in good position, draining bilious material, Neck is supple. No meningismus. Heart sounds regular without appreciable murmur. Breath sounds mildly diminished. Some coarse scattered rhonchi appreciated. Abdomen is soft with some tenderness. Bowel sounds are minimal. Extremities are weak. Pulses palpable times four. DIAGNOSTIC STUDIES: Her white cell count is up to 7.3. Hemoglobin is up to 8.2, hematocrit up to 25.7, Platelet count remains low at 65.000. Differential white cell count shows 80% neutrophils. Electrolytes are sodium 142, potassium is down to 3.2, chloride 108, CO2 of 30, BUN is 11, creatinine 0.24, glucose 157, calcium 7.8, phosphorus 1.4, down from 1.8. Liver enzymes are stable, AST 11, ALT 12. Her LDH is down to 200. Albumin is 1.3. Abdominal imaging has been ordered. Report is pending. There appears to be diffuse bowel gas on the image. On review of medications, she is receiving total parenteral nutrition (TPN) at 80 mL per hour with addition of lipids, Protonix 40 mg a day, Xopenex and ipratropium four times a day. The primary problem requiring critical attention hypoxemia. Patient's saturations are acceptable on supplemental oxygen. We will continue to closely monitor gas exchange. Shock, resolved. Levophed has been discontinued. Her central venous pressure is on the low side. We will continue to monitor intake and output, as she may need additional fluid resuscitation. Aspiration pneumonia. The patient is responding to treatment. Bowel obstruction. This was found to be functional at laparotomy 2 days ago. Only 100 mL out the nasogastric (NG) tube. Formal report of her abdominal imaging is pending. Anemia, improved hemoglobin and hematocrit. Hypokalemia, hypophosphatemia. Will replace and recheck these values. Thrombocytopenia secondary to chronic chemotherapy. Metastatic breast carcinoma, following with medical oncology. Treatment on hold pending resolution of critical illness. Deep venous thrombosis (DVT) prophylaxis is in place. Ulcer prophylaxis is in place with Protonix. Glycemic control is acceptable at this point. Protein-calorie malnutrition. Will rewrite TPN today until cleared by surgery for oral intake. I have reviewed the case with general surgery and the attending hospitalist service. We reviewed the case with the intensive care unit (ICU) nursing team, and care plans for the day have been updated. Sixty-eight minutes was spent in the provision of bedside critical care and coordination, excluding any time for the performance of procedures.
[2020-10-10] MEDS: PANTOPRAZOLE 40MG VIAL (C9113 PER 1) IV SCH (17:57)
[2020-10-10] MEDS ORDERED: AMINO AC/ELECTROLYTE/DEX/CALC 2,000 ML IV SCH (18:00)
[2020-10-10] MEDS ORDERED: FAT EMULSION IV 20% 500 ML IV SCH (18:00)
[2020-10-11] VITALS (11 sets, daily range): BP systolic 92–135; BP diastolic 51–70
[2020-10-11] MEDS: MORPHINE 2 MG/ML 1ML VIAL (J2270) IV PRN ×2 (01:06→02:48)
[2020-10-11] MEDS: LEVALBUTEROL 1.25 MG/0.5 ML CONCENTRATE NEB INH SCH ×4 (01:32→20:45)
[2020-10-11] MEDS: IPRATROPIUM 0.02% SOLN 0.5MG 2.5ML NEB INH SCH ×4 (01:32→20:45)
[2020-10-11] MEDS: METOCLOPRAMIDE INJ 10MG/2ML VIAL (J2765 PER 1) IV SCH ×3 (02:48→18:02)
[2020-10-11 02:53] LABS: ABG HCO3 25.9 MEQ/L (22.0-26.0); ABG O2 SATURATION 95.8 % (95.0-99.0); ABG PARTIAL PRESSURE CO2 37.9 mmHg (35.0-45.0); ABG STANDARD HCO3 26.2 MEQ/L (22.0-26.0); ABG TOTAL CO2 27.1 MEQ/L (22.0-29.0); ABG pH (ARTERIAL) 7.453 UNITS (7.350-7.450)
[2020-10-11] MEDS: PIPERACILLIN/TAZOBACTAM SOD 3.375 GM in D5W MINI-BAG PLUS 50 ML IV SCH ×4 (05:09→22:36)
[2020-10-11 05:23] LABS: HEMATOCRIT 26.9 % (36.0-47.0); HEMOGLOBIN 8.6 g/dl (12.0-15.5); MEAN CORPUSCULAR HEMOGLOBIN 32.7 pg (27.0-33.0); MEAN CORPUSCULAR VOLUME 102.3 fl (80.0-96.0); RED BLOOD COUNT 2.63 10^6/uL (4.00-5.40); WHITE BLOOD COUNT 8.6 10^3/uL (4.0-10.0)
[2020-10-11 05:24] LABS: PLATELET COUNT, AUTOMATED 67 10^3/uL (150-450)
[2020-10-11 05:34] LABS: ANISOCYTOSIS 1+; ATYPICAL LYMPH 2 % (0-5); EOSINOPHILS 2 % (0-3); LYMPHOCYTES 15 % (16-44); MONOCYTES 1 % (0-5); NEUTROPHILS 80 % (28-66); PLATELET ESTIMATE DECREASED (NORMAL); POIKILOCYTOSIS 1+
[2020-10-11 05:35] LABS: POLYCHROMASIA 1+
[2020-10-11 05:53] LABS: ALBUMIN 1.3 GM/DL (3.2-5.2); ALT/SGPT 13 U/L (12-78); BILIRUBIN,TOTAL 0.3 MG/DL (0.2-1.0); BLOOD UREA NITROGEN 11 MG/DL (7-18); CARBON DIOXIDE LEVEL 29 MEQ/L (21-32); CHLORIDE LEVEL 105 MEQ/L (98-107); CHOLESTEROL LEVEL 92 MG/DL (< 200); CPK CREATINE PHOSPHOKINASE 23 U/L (26-192); CREATININE FOR GFR < 0.15 MG/DL (0.55-1.30); GLOMERULAR FILTRATION RATE > 60.0 (>51); GLUCOSE, FASTING 104 MG/DL (70-100); LDH LACTATE DEHYDROGENASE 223 U/L (84-246); PHOSPHORUS LEVEL 1.6 MG/DL (2.5-4.9); POTASSIUM SERUM 3.6 MEQ/L (3.5-5.1); SODIUM LEVEL 138 MEQ/L (136-145); TOTAL PROTEIN 4.8 GM/DL (6.4-8.2); TRIGLYCERIDES LEVEL 69 MG/DL (<150)
[2020-10-11] MEDS: HumaLOG INSULIN (NovoLOG) PER UNIT SC SCH ×4 (06:34→23:53)
--- NOTE | 2020-10-11 08:46 | IPNPDOC ---
Text Note Date of Service The patient was seen on 10/10/20. NOTE Subjective: Patient seen and examined at bedside. She is post op day #2 for ex-lap of the abdomen. No acute overnight events reported, no new medical complaints this morning. 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 Patient reported that she with her primary care providers office because of weakness and diarrhea for the last 1 week. Patient reports that her diarrhea has been occurring 1-2 times a day. Patient describes as watery without any evidence of blood. While at the primary cares office. Patient was noted to be hypotensive and tachycardic and was subsequently sent to the emergency room for further evaluation. #Sepsis - possibly 2/2 pneumonia (possibly healthcare associated) and now aspiration pneumonia, possibly 2/2 intra-abdominal etiology - MRSA negative - Blood cultures negative - UA negative; Urine culture 10/02: Negative - Zosyn Day #9 - anticipating completing 10 days #Acute hypoxic respiratory failure - likely 2/2 above - on supplemental oxygen via nasal cannula #Suspected small bowel obstruction - NG tube in place - General surgery on consultation - post op day #1 for exploratory lap, no acute findings #s/p Lactic acidosis #Hyponatremia - likely 2/2 hypotonic hypovolemic - Mild - Will continue to monitor #Hypokalemia - Will supplement via IV route #s/p Pancytopenia - likely secondary to chemotherapy - Thrombocytopenia remains relatively stable - No evidence of bleed - s/p 2 units PRBC #anemia - recheck H/H this afternoon #hyperbilirubinemia - Improving - Hepatitis profile negative - Imaging noted above #Stage IV metastatic invasive ductal carcinoma of the breast - Dx 03/2016 - Patient has received multiple rounds of chemotherapy in the past - Has received adjuvant radiation therapy - PET scan completed 07/2020 has shown evidence of progressive pleural hypermetabolic soft tissues starting and for new hypermetabolic metastatic foci in the liver - Patient was started on Capecitabine chemotherapy on 08/18/[address] Connors #Gastrointestinal prophylaxis - c/w Protonix #DVT prophylaxis - c/w TEDs/Sequentials (re: Thrombocytopenia) Prognosis: - Poor Code Status: - Full Disposition: - pending clinical improvement VS,Fishbone, I+O VS, Fishbone, I+O Laboratory Tests 10/11/20 05:12 Vital Signs Date Time Temp Pulse Resp B/P (MAP) Pulse Ox O2 Delivery O2 Flow Rate FiO2 10/11/20 06:00 115 36 98/55 (69) 99 High Flow Cannula 5.0 10/11/20 04:00 98.5 10/10/20 15:02 50 I&O- Last 24 Hours up to 6 AM 10/11/20 06:00 Intake Total 1830 ml Output Total 4080 ml Balance -2250 ml MILDRED FINE MD Oct 11, 2020 08:46
--- NOTE | 2020-10-11 08:58 | IPNPDOC ---
Text Note Date of Service The patient was seen on 10/11/20. NOTE Subjective: Patient seen and examined at bedside. No acute overnight events reported. No new medical complaints this morning. 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 Patient was seeing her PCP for a one week Hx of weakness and diarrhea. While at the primary cares office. Patient was noted to be hypotensive and tachycardic and was subsequently sent to the emergency room for further evaluation. #Sepsis - possibly 2/2 pneumonia (possibly healthcare associated) and now aspiration pneumonia, possibly 2/2 intra-abdominal etiology - MRSA negative - Blood cultures negative x 2 - UA negative; Urine culture 10/02: Negative - Zosyn Day #10 - will likely discontinue today #Acute hypoxic respiratory failure - likely 2/2 above - continue with supplemental oxygen #Suspected small bowel obstruction - NG tube in place - General surgery on consultation - post op day #3 for exploratory lap, no acute findings - continue TPN for now #s/p Lactic acidosis #Hyponatremia - likely 2/2 hypotonic hypovolemic - resolved #Hypokalemia - resolved #s/p Pancytopenia - likely secondary to chemotherapy - Thrombocytopenia remains relatively stable - No evidence of bleed - s/p 2 units PRBC #hyperbilirubinemia -resolved - Hepatitis profile negative - Imaging noted above #Stage IV metastatic invasive ductal carcinoma of the breast - Dx 03/2016 - Patient has received multiple rounds of chemotherapy in the past - Has received adjuvant radiation therapy - PET scan completed 07/2020 has shown evidence of progressive pleural hypermetabolic soft tissues starting and for new hypermetabolic metastatic foci in the liver - Patient was started on Capecitabine chemotherapy on 08/18/[address] Connors #Gastrointestinal prophylaxis - c/w Protonix #DVT prophylaxis - c/w TEDs/Sequentials (re: Thrombocytopenia) Prognosis: - Poor Code Status: - Full Disposition: - pending clinical improvement - transfer to PCU today VS,Gabriel, I+O VS, Aminahe, I+O Laboratory Tests 10/11/20 05:12 Vital Signs Date Time Temp Pulse Resp B/P (MAP) Pulse Ox O2 Delivery O2 Flow Rate FiO2 10/11/20 06:00 115 36 98/55 (69) 99 High Flow Cannula 5.0 10/11/20 04:00 98.5 10/10/20 15:02 50 I&O- Last 24 Hours up to 6 AM 10/11/20 06:00 Intake Total 1830 ml Output Total 4080 ml Balance -2250 ml MILDRED FINE MD Oct 11, 2020 08:58
--- NOTE | 2020-10-11 09:01 | IPNPDOC ---
Text Note Date of Service The patient was seen on 10/11/20. NOTE I followed up on the patient today. She remains extubated, breathing slightly better but still requiring high flow nasal cannula, still somewhat short of breath when speaking. Patient asking if she can have coffee. Exam Awake, alert, oriented on high flow NC, looks comfortable at rest but with increased sob with speaking NGT in place Lungs: scattered rhonchi abdomen, mildly distended, soft, hypoactive bs; nontender on palpation. Four 5 mm ports with dermabond, clean dry intact. Impression/Plan 1. enteritis picture (from Chemo) with ileus either from the enteritis or from the lung process 2. POD3 Diagnostic Laparoscopy no mechanical obstruction Continue NGT, TPN still no evidence for effective bowel function even though generalized distention is better. NGT has minimal output. will get xrays serially for now. will go slow on removing ngt d/t prior h/o aspiration. It does not seem like she is strong enough to protect her airway if she vomits. will increase reglan to 10 mg q 8hrs. VS,Fishbone, I+O VS, Fishbone, I+O Laboratory Tests 10/11/20 05:12 Vital Signs Date Time Temp Pulse Resp B/P (MAP) Pulse Ox O2 Delivery O2 Flow Rate FiO2 10/11/20 06:00 115 36 98/55 (69) 99 High Flow Cannula 5.0 10/11/20 04:00 98.5 10/10/20 15:02 50 I&O- Last 24 Hours up to 6 AM 10/11/20 06:00 Intake Total 1830 ml Output Total 4080 ml Balance -2250 ml CHIP NGUYEN MD Oct 11, 2020 09:01
--- NOTE | 2020-10-11 10:52 | REP ---
INDICATION: ff up sbo. COMPARISON: Comparison radiograph is from the previous day.. TECHNIQUE: Portably obtained supine AP radiograph. FINDINGS: And NG tube enters the distal stomach as before. There are several loops of air-filled mildly dilated small bowel loops in the central abdomen displaying some mural thickening. The mural thickening pattern is less prominent than on yesterday's radiograph. There is air in the ascending and transverse colon and splenic flexure region. Some gas is seen in the rectum. IMPRESSION: Mural thickening slightly improved from yesterday's radiograph. <Electronically signed by Davin Molina > 10/11/20 [id number]
[2020-10-11] MEDS ORDERED: LORazepam 2 MG/ML VIAL As Ordered ONE ×2 (11:12→17:30)
[2020-10-11] MEDS: LORazepam 2 MG/ML VIAL IV PRN ×3 (11:15→23:01)
[2020-10-11] MEDS: PANTOPRAZOLE 40MG VIAL (C9113 PER 1) IV SCH (16:15)
[2020-10-11] MEDS ORDERED: AMINO AC/ELECTROLYTE/DEX/CALC 2,000 ML IV SCH (18:00)
[2020-10-11] MEDS ORDERED: FAT EMULSION IV 20% 500 ML IV SCH (18:00)
[2020-10-11] MEDS ORDERED: ESCITALOPRAM OXALATE 10 MG TAB (LEXAPRO) GT SCH (21:00)
[2020-10-11] MEDS: ESCITALOPRAM OXALATE 10 MG TAB (LEXAPRO) PEG SCH (21:03)
[2020-10-11] MEDS: NICOTINE 21MG/24HR 1 EA TRANSDERMAL TD SCH (23:47)
[2020-10-12] VITALS: BP 144/70
[2020-10-12] MEDS: IPRATROPIUM 0.02% SOLN 0.5MG 2.5ML NEB INH SCH ×4 (02:31→19:23)
[2020-10-12] MEDS: LEVALBUTEROL 1.25 MG/0.5 ML CONCENTRATE NEB INH SCH ×4 (02:31→19:23)
[2020-10-12] MEDS: METOCLOPRAMIDE INJ 10MG/2ML VIAL (J2765 PER 1) IV SCH ×3 (03:25→18:44)
[2020-10-12] MEDS: ACETAMINOPHEN TAB 650MG DOSE (2X325MG) PO PRN ×2 (03:25→14:02)
[2020-10-12 04:00] VITALS: BP 139/68
[2020-10-12] MEDS: LORazepam 2 MG/ML VIAL IV PRN ×3 (05:23→20:33)
[2020-10-12] MEDS: PIPERACILLIN/TAZOBACTAM SOD 3.375 GM in D5W MINI-BAG PLUS 50 ML IV SCH (05:23)
[2020-10-12 05:43] LABS: HEMATOCRIT 29.2 % (36.0-47.0); HEMOGLOBIN 9.5 g/dl (12.0-15.5); MEAN CORPUSCULAR HEMOGLOBIN 32.8 pg (27.0-33.0); MEAN CORPUSCULAR HGB CONC 32.5 g/dl (32.0-36.5); MEAN CORPUSCULAR VOLUME 100.7 fl (80.0-96.0); WHITE BLOOD COUNT 8.4 10^3/uL (4.0-10.0)
[2020-10-12 06:11] LABS: ALBUMIN 1.6 GM/DL (3.2-5.2); ALT/SGPT 17 U/L (12-78); BILIRUBIN,TOTAL 0.5 MG/DL (0.2-1.0); BLOOD UREA NITROGEN 12 MG/DL (7-18); CALCIUM LEVEL 8.2 MG/DL (8.5-10.1); CARBON DIOXIDE LEVEL 29 MEQ/L (21-32); CHLORIDE LEVEL 106 MEQ/L (98-107); CHOLESTEROL LEVEL 117 MG/DL (< 200); CPK CREATINE PHOSPHOKINASE 29 U/L (26-192); CREATININE FOR GFR 0.22 MG/DL (0.55-1.30); GLOMERULAR FILTRATION RATE > 60.0 (>51); GLUCOSE, FASTING 131 MG/DL (70-100); LDH LACTATE DEHYDROGENASE 250 U/L (84-246); PHOSPHORUS LEVEL 2.3 MG/DL (2.5-4.9); POTASSIUM SERUM 3.2 MEQ/L (3.5-5.1); SODIUM LEVEL 139 MEQ/L (136-145); TOTAL PROTEIN 6.2 GM/DL (6.4-8.2); TRIGLYCERIDES LEVEL 92 MG/DL (<150)
[2020-10-12 06:15] LABS: PLATELET COUNT, AUTOMATED 71 10^3/uL (150-450)
[2020-10-12 06:43] LABS: ANISOCYTOSIS 1+; ATYPICAL LYMPH 3 % (0-5); LYMPHOCYTES 16 % (16-44); METAMYELOCYTES 1 % (0-0); MONOCYTES 2 % (0-5); MYELOCYTES 1 % (0-0); NEUTROPHILS 74 % (28-66); PLATELET ESTIMATE DECREASED (NORMAL); TOXIC GRANULATION 1+
[2020-10-12] MEDS: HumaLOG INSULIN (NovoLOG) PER UNIT SC SCH ×4 (06:46→23:37)
[2020-10-12 07:31] LABS: MAGNESIUM LEVEL 2.3 MG/DL (1.8-2.4)
[2020-10-12 08:29] VITALS: BP 150/81
[2020-10-12] MEDS: POTASSIUM CHLORIDE 10% LIQ 20 MEQ/15 ML UDC NG SCH ×2 (08:30→08:59)
[2020-10-12] MEDS: K-PHOS NEUTRAL 250MG TABLET (SOD.PHOSPHATE/POT.PHOSPHATE) NG SCH ×3 (08:59→20:09)
--- NOTE | 2020-10-12 09:07 | IPNPDOC ---
Text Note Date of Service The patient was seen on 10/12/20. NOTE Subjective: Patient seen and examined at bedside. Lexapro started last night for concerns of anxiety. No new medical complaints this morning. 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 Patient was seeing her PCP for a one week Hx of weakness and diarrhea. While at the primary cares office. Patient was noted to be hypotensive and tachycardic and was subsequently sent to the emergency room for further evaluation. #Sepsis - possibly 2/2 pneumonia (possibly healthcare associated) and now aspiration pneumonia, possibly 2/2 intra-abdominal etiology - MRSA negative - Blood cultures negative x 2 - UA negative; Urine culture 10/02: Negative - s/p 10 days of Zosyn #Acute hypoxic respiratory failure - likely 2/2 above - continue with supplemental oxygen #Suspected small bowel obstruction - NG tube in place - General surgery on consultation - s/p exploratory lap, no acute findings - continue TPN for now - /family/HCP considering PEG tube #s/p Lactic acidosis #Hyponatremia - likely 2/2 hypotonic hypovolemic - resolved #Hypokalemia - continue to follow and replete as needed #s/p Pancytopenia - likely secondary to chemotherapy - improving - No evidence of bleed - s/p 2 units PRBC #hyperbilirubinemia -resolved - Hepatitis profile negative - Imaging noted above #Stage IV metastatic invasive ductal carcinoma of the breast - Dx 03/2016 - Patient has received multiple rounds of chemotherapy in the past - Has received adjuvant radiation therapy - PET scan completed 07/2020 has shown evidence of progressive pleural hypermetabolic soft tissues starting and for new hypermetabolic metastatic foci in the liver - Patient was started on Capecitabine chemotherapy on 08/18/[address] Connors #Gastrointestinal prophylaxis - c/w Protonix #DVT prophylaxis - c/w TEDs/Sequentials (re: Thrombocytopenia) Prognosis: - Poor Code Status: - Full Disposition: - waiting bed in PCU - discussed with surgery; extensive discussion with on telephone today - discussed goals of care, hospice and PEG tube placement - no decisions made - further discussion with and sister - Shannon -[phone]. She is requesting to maintain full code, and PEG tube placement. VS,Fishbone, I+O VS, Fishbone, I+O Laboratory Tests 10/12/20 05:29 Vital Signs Date Time Temp Pulse Resp B/P (MAP) Pulse Ox O2 Delivery O2 Flow Rate FiO2 10/12/20 04:00 2.0 10/12/20 04:00 98.4 120 139/68 (91) 93 Nasal Cannula 10/12/20 02:40 32 10/10/20 15:02 50 I&O- Last 24 Hours up to 6 AM 10/12/20 06:00 Intake Total 3220 ml Output Total 3560 ml Balance -340 ml MILDRED FINE MD October 12, 2020 09:07
--- NOTE | 2020-10-12 10:05 | IPNPDOC ---
Text Note Date of Service The patient was seen on 10/12/20. NOTE No acute events overnight. She is tolerating TPN, and had a few small BMs. NG output is small, but still bilious in color. She denies nausea, emesis, or abd pains. VSSAF NAD abd - soft, nt, slightly distended, no rebound or guarding, NG in place with bilious output labs - below A) 55y/o female with aspiration pneumonia, ileus, and metastatic breast CA P) TPN continue with NG to suction until she is able to protect her airway, and distention improves may consider PEG tube placement Kavon Caballero DO VS,Fishbone, I+O VS, Fishbone, I+O Laboratory Tests 10/12/20 05:29 Vital Signs Date Time Temp Pulse Resp B/P (MAP) Pulse Ox O2 Delivery O2 Flow Rate FiO2 10/12/20 04:00 2.0 10/12/20 04:00 98.4 120 139/68 (91) 93 Nasal Cannula 10/12/20 02:40 32 10/10/20 15:02 50 I&O- Last 24 Hours up to 6 AM 10/12/20 06:00 Intake Total 3220 ml Output Total 3560 ml Balance -340 ml GIANA CABALLERO DO October 12, 2020 10:05
--- NOTE | 2020-10-12 10:26 | ECGEPIP ---
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
[2020-10-12 11:00] VITALS: BP 153/70
[2020-10-12 11:47] LABS: ABG BASE EXCESS 1.4 (-2.0-2.0); ABG HCO3 23.8 MEQ/L (22.0-26.0); ABG O2 SATURATION 89.3 % (95.0-99.0); ABG PARTIAL PRESSURE CO2 30.2 mmHg (35.0-45.0); ABG PARTIAL PRESSURE O2 53.5 mmHg (75.0-100.0); ABG STANDARD HCO3 25.6 MEQ/L (22.0-26.0); ABG TOTAL CO2 24.8 MEQ/L (22.0-29.0); ABG pH (ARTERIAL) 7.515 UNITS (7.350-7.450)
[2020-10-12] MEDS ORDERED: POTASSIUM CHLORIDE 10% LIQ 20 MEQ/15 ML UDC NG SCH (12:15)
--- NOTE | 2020-10-12 13:31 | REP ---
INDICATION: ffup ileus COMPARISON: 3021 minutes TECHNIQUE: Supine view of the abdomen and pelvis. FINDINGS: Bowel gas pattern is nonspecific and without obstruction or perforation. Appearance to the small bowel is relatively normal and nonspecific. Nasogastric tube identified in satisfactory stable position. IMPRESSION: Nonspecific bowel gas pattern. <Electronically signed by Brandyn Chau > 10/12/20 [id number]
[2020-10-12 13:37] LABS: CLOSTRIDIUM DIFFICILE PCR NEGATIVE (NEGATIVE)
[2020-10-12] MEDS ORDERED: LORazepam 2 MG/ML VIAL As Ordered ONE (13:56)
[2020-10-12 15:10] VITALS: BP 157/76
[2020-10-12] MEDS: PANTOPRAZOLE 40MG VIAL (C9113 PER 1) IV SCH (15:19)
[2020-10-12] MEDS ORDERED: DEX IV SCH (18:00)
[2020-10-12] MEDS ORDERED: ELECTROLYTE IV SCH (18:00)
[2020-10-12] MEDS ORDERED: CALC IV SCH (18:00)
[2020-10-12] MEDS ORDERED: POTASSIUM CHLORIDE IV SCH (18:00)
[2020-10-12] MEDS ORDERED: AMINO AC IV SCH (18:00)
[2020-10-12] MEDS ORDERED: FAT EMULSION IV 20% 500 ML IV SCH (18:00)
[2020-10-12 20:00] VITALS: BP 140/69
[2020-10-12] MEDS: ESCITALOPRAM OXALATE 10 MG TAB (LEXAPRO) PEG SCH (20:09)
[2020-10-12] MEDS: NICOTINE 21MG/24HR 1 EA TRANSDERMAL TD SCH (20:09)
[2020-10-13] VITALS: BP 151/72
[2020-10-13 00:20] LABS: FREE THYROXINE INDEX 4.6 % (1.3-4.8); T UPTAKE 37 % (30-39); THYROID STIMULATING HORMONE 0.622 uIU/ML (0.358-3.740); THYROXINE (T4) 12.3 UG/DL (4.5-12.0)
[2020-10-13] MEDS ORDERED: ALTEPLASE 2MG/2ML VIAL XX ONE (00:50)
[2020-10-13] MEDS ORDERED: SODIUM CHLORIDE 0.9% INJ 10 ML SYR IV PRN (01:25)
[2020-10-13] MEDS: IPRATROPIUM 0.02% SOLN 0.5MG 2.5ML NEB INH SCH ×3 (03:03→13:01)
[2020-10-13] MEDS: LEVALBUTEROL 1.25 MG/0.5 ML CONCENTRATE NEB INH SCH ×3 (03:03→13:01)
--- NOTE | 2020-10-13 03:22 | REPVR ---
PROCEDURE INFORMATION: Exam: XR Chest Exam date and time: 10/13/2020 12:34 AM Age: 55 years old Clinical indication: Other: Central line placement; Additional info: Central line placement verification TECHNIQUE: Imaging protocol: XR of the chest. Views: 1 view. COMPARISON: LA PORTABLE CHEST X-RAY 10/09/2020 6:49 AM FINDINGS: Tubes, catheters and devices: Feeding tube in the stomach, tip is excluded. Right PICC terminates at the cavoatrial junction. Right subclavian central venous catheter terminates in proximal superior vena cava. Lungs: Bilateral perihilar and bibasilar reticulonodular opacities have diminished somewhat. Pleural spaces: Unremarkable. No pleural effusion. No pneumothorax. Heart/Mediastinum: Unremarkable. No cardiomegaly. Bones/joints: Osteopenia. Soft tissues: Bilateral breast implants. Surgical clips in the left axilla. IMPRESSION: Right PICC terminates at the cavoatrial junction. Right subclavian central venous catheter terminates in proximal superior vena cava. Bilateral perihilar and bibasilar reticulonodular opacities have diminished somewhat. Electronically signed by: Octaviano Abdi On 10/13/2020 03:21:40 AM
[2020-10-13] MEDS: METOCLOPRAMIDE INJ 10MG/2ML VIAL (J2765 PER 1) IV SCH ×2 (03:40→10:05)
[2020-10-13 04:00] VITALS: BP 158/78
--- NOTE | 2020-10-13 05:04 | ECGEPIP ---
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
[2020-10-13 05:20] LABS: HEMATOCRIT 30.1 % (36.0-47.0); HEMOGLOBIN 9.9 g/dl (12.0-15.5); MEAN CORPUSCULAR HEMOGLOBIN 32.6 pg (27.0-33.0); MEAN CORPUSCULAR HGB CONC 32.9 g/dl (32.0-36.5); RED BLOOD COUNT 3.04 10^6/uL (4.00-5.40)
[2020-10-13 05:21] LABS: PLATELET COUNT, AUTOMATED 78 10^3/uL (150-450)
[2020-10-13 05:25] LABS: ALBUMIN 1.6 GM/DL (3.2-5.2); ALT/SGPT 16 U/L (12-78); BILIRUBIN,TOTAL 0.5 MG/DL (0.2-1.0); BLOOD UREA NITROGEN 13 MG/DL (7-18); CALCIUM LEVEL 8.2 MG/DL (8.5-10.1); CARBON DIOXIDE LEVEL 29 MEQ/L (21-32); CHLORIDE LEVEL 105 MEQ/L (98-107); CREATININE FOR GFR 0.16 MG/DL (0.55-1.30); GLOMERULAR FILTRATION RATE > 60.0 (>51); GLUCOSE, FASTING 113 MG/DL (70-100); MAGNESIUM LEVEL 2.1 MG/DL (1.8-2.4); PHOSPHORUS LEVEL 2.4 MG/DL (2.5-4.9); POTASSIUM SERUM 3.8 MEQ/L (3.5-5.1); SODIUM LEVEL 136 MEQ/L (136-145); TOTAL PROTEIN 6.8 GM/DL (6.4-8.2)
[2020-10-13 05:28] LABS: ANISOCYTOSIS 1+; ATYPICAL LYMPH 3 % (0-5); EOSINOPHILS 1 % (0-3); LYMPHOCYTES 11 % (16-44); MONOCYTES 2 % (0-5); NEUTROPHILS 83 % (28-66); PLATELET ESTIMATE DECREASED (NORMAL); POIKILOCYTOSIS 1+
[2020-10-13 05:29] LABS: POLYCHROMASIA 1+
[2020-10-13] MEDS ORDERED: SODIUM CHLORIDE 0.9% INJ 10 ML SYR IV SCH (06:00)
[2020-10-13] MEDS: HumaLOG INSULIN (NovoLOG) PER UNIT SC SCH ×2 (06:06→12:00)
[2020-10-13 07:06] VITALS: BP 156/70
[2020-10-13] MEDS: K-PHOS NEUTRAL 250MG TABLET (SOD.PHOSPHATE/POT.PHOSPHATE) NG SCH (08:12)
--- NOTE | 2020-10-13 10:03 | IPNPDOC ---
Text Note Date of Service The patient was seen on 10/13/20. NOTE Subjective: Patient seen and examined at bedside. Lexapro started last night for concerns of anxiety. No new medical complaints this morning. 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 Patient was seeing her PCP for a one week Hx of weakness and diarrhea. While at the primary cares office. Patient was noted to be hypotensive and tachycardic and was subsequently sent to the emergency room for further evaluation. #Sepsis - possibly 2/2 pneumonia (possibly healthcare associated) and now aspiration pneumonia, possibly 2/2 intra-abdominal etiology - MRSA negative - Blood cultures negative x 2 - UA negative; Urine culture 10/02: Negative - s/p 10 days of Zosyn -discontinued 10/12/20 - leukocytosis today - neutrophil dominant; judicious with abx given diarrhea and significant coverage already, although she is high risk for continued aspiration #Acute hypoxic respiratory failure - likely 2/2 above - continue with supplemental oxygen - saturating well on 1-2 L - high risk for aspiration #Suspected small bowel obstruction - NG tube in place - General surgery on consultation - s/p exploratory lap, no acute findings - continue TPN for now - /family/HCP would like PEG tube - likely will be placed tomorrow #s/p Lactic acidosis #Hyponatremia - likely 2/2 hypotonic hypovolemic - resolved #Hypokalemia - resolved for today - continue to follow and replete as needed #s/p Pancytopenia - likely secondary to chemotherapy - improving - No evidence of bleed - s/p 2 units PRBC #hyperbilirubinemia -resolved - Hepatitis profile negative #Stage IV metastatic invasive ductal carcinoma of the breast - Dx 03/2016 - Patient has received multiple rounds of chemotherapy in the past - Has received adjuvant radiation therapy - PET scan completed 07/2020 has shown evidence of progressive pleural hypermetabolic soft tissues starting and for new hypermetabolic metastatic foci in the liver - Patient was started on Capecitabine chemotherapy on 08/18/[address] Connors #Gastrointestinal prophylaxis - c/w Protonix #DVT prophylaxis - c/w TEDs/Sequentials (re: Thrombocytopenia) Prognosis: - Poor Code Status: - Full Disposition: - waiting bed in PCU - discussed with surgery; extensive discussion with on telephone today - discussed plan for PEG tube placement - previously - extensive discussion with sister - Shannon -[phone]. She requests to maintain full code, and PEG tube placement. VS,Fishbone, I+O VS, Fishbone, I+O Laboratory Tests 10/13/20 04:41 Vital Signs Date Time Temp Pulse Resp B/P (MAP) Pulse Ox O2 Delivery O2 Flow Rate FiO2 10/13/20 08:00 1.0 10/13/20 07:06 99.0 128 42 156/70 (98) 89 Nasal Cannula 10/10/20 15:02 50 I&O- Last 24 Hours up to 6 AM 10/13/20 06:00 Intake Total 2480 ml Output Total 2280 ml Balance 200 ml MILDRED FINE MD October 13, 2020 10:03
[2020-10-13 12:14] VITALS: BP 149/62
--- NOTE | 2020-10-13 13:15 | REP ---
INDICATION: ffup ileus COMPARISON: 10/12/2020 TECHNIQUE: Portable supine view of the abdomen and pelvis. FINDINGS: Nasogastric tube below the left hemidiaphragm in satisfactory position. Bowel gas pattern is nonspecific and without obstruction or perforation. No organomegaly. No abnormal calcifications. Skeletal structures intact. IMPRESSION: Normal abdominal radiograph. Nonspecific bowel gas pattern. <Electronically signed by Brandyn Chau > 10/13/20 1314
[2020-10-13 13:50] VITALS: BP 168/77
[2020-10-13] MEDS ORDERED: SCOPOLAMINE 1MG TRANSDERMAL PATCH TOP PRN (14:15)
[2020-10-13] MEDS ORDERED: LORazepam 2 MG/ML VIAL IV PRN (14:15)
[2020-10-13] MEDS ORDERED: MORPHINE 2 MG/ML 1ML VIAL (J2270) IV PRN (14:15)
[2020-10-13] MEDS ORDERED: LORazepam 2 MG/ML VIAL As Ordered ONE (14:23)
--- NOTE | 2020-10-13 15:52 | DS.PDOC ---
Discharge Summary General Date of Admission Oct 02, 2020 at 14:45 Date of Discharge 10/13/2020 Specialist/Consultants Involve surgery, pulmonology Discharge Summary PROCEDURES PERFORMED DURING STAY: ex-lap, ng tube placement, intubation, sub- clavian central line DISCHARGE DIAGNOSES: #Sepsis - possibly 2/2 pneumonia (possibly healthcare associated) and now aspiration pneumonia, possibly 2/2 intra-abdominal etiology #Acute hypoxic respiratory failure - likely 2/2 above #Suspected small bowel obstruction #Lactic acidosis #Hyponatremia - hypotonic hypovolemic #Hypokalemia #Pancytopenia #hyperbilirubinemia #Stage IV invasive ductal carcinoma of the breast with extensive metastatic disease COMPLICATIONS/CHIEF COMPLAINT: Dehydration,Diarrhea,Nausea &Vomiting,Sepsis. HISTORY OF PRESENT ILLNESS: Patient is a 55-year-old female with a PMHx of Stage IV Metastatic Invasive ductal cell carcinoma of the breast (Dx 03/2016), Depression / Anxiety , who presented to the emergency room via ambulance from her primary care providers office for tachycardia and hypotension. Patient reported that she with her primary care providers office because of weakness and diarrhea for the last 1 week. Patient reports that her diarrhea has been occurring 1-2 times a day. Patient describes as watery without any evidence of blood. While at the primary cares office. Patient was noted to be hypotensive and tachycardic and was subsequently sent to the emergency room for further evaluation. HOSPITAL COURSE: Patient was admitted for further evaluation and treatment. There was concern for small bowel obstruction. Surgery was consulted for further evaluation and treatment and an NG tube was placed. It was also concern for aspiration pneumonia as patient did not have ability to reasonably protect her airway. He developed respiratory failure requiring intubation with mechanical ventilation. She was hypotensive requiring pressor support. She was successfully weaned off pressors and also successfully extubated. Her weakness and lethargy persisted and her NG tube remained. She did undergo diagnostic laparoscopy with no findings for a small bowel obstruction with further evidence for metastatic disease. Her grave prognosis was discussed with her and her sister. Th ere was a difference of opinion in plan of care between her and her sister. Her accepted the idea of hospice and comfort measures only. Her sister requested full aggressive measures as such, her decided to go ahead with plans for PEG tube. However, the patient's condition rapidly deteriorated, as suspected, she again went into respiratory distress and would have required mechanical ventilation with intubation. Her was contacted again as well as her sister. They still had a difference of opinion. However, her 's opinion and decision takes precedence. As such, she was made comfort measures only and she shortly after. His decision for comfort measures only was witnessed verbally over the telephone by nursing staff, and witnessed also as indicated on the MOLST form signed by her . #Sepsis - possibly 2/2 pneumonia (possibly healthcare associated) and aspiration pneumonia, possibly 2/2 intra-abdominal etiology - MRSA negative - Blood cultures negative x 2 - UA negative; Urine culture 10/02: Negative - s/p 10 days of Zosyn #Acute hypoxic respiratory failure - as above, secondary to aspiration pneumonia #Suspected small bowel obstruction - NG tube in place - General surgery on consultation - s/p diagnostic lap, no acute findings - continue TPN for now - /family opted for PEG tube - follow as per surgery #s/p Lactic acidosis #Hyponatremia - likely 2/2 hypotonic hypovolemic - resolved #Hypokalemia - resolved - continue to follow and replete as needed #s/p Pancytopenia - likely secondary to chemotherapy - improving - No evidence of bleed - s/p 2 units PRBC #hyperbilirubinemia -resolved - Hepatitis profile negative #Stage IV metastatic invasive ductal carcinoma of the breast - Dx 03/2016 - Patient has received multiple rounds of chemotherapy in the past - Has received adjuvant radiation therapy - PET scan completed 07/2020 has shown evidence of progressive pleural hypermetabolic soft tissues starting and for new hypermetabolic metastatic foci in the liver - Patient was started on Capecitabine chemotherapy on 08/18/[address] Connors #Gastrointestinal prophylaxis - Protonix DISCHARGE CONDITION: TIME SPENT ON DISCHARGE: 40 minutes. Vital Signs/I&Os Vital Signs Date Time Temp Pulse Resp B/P (MAP) Pulse Ox O2 Delivery O2 Flow Rate FiO2 10/13/20 08:00 1.0 10/13/20 07:06 99.0 128 42 156/70 (98) 89 Nasal Cannula 10/10/20 15:02 50 I&O- Last 24 Hours up to 6 AM 10/13/20 06:00 Intake Total 2480 ml Output Total 2280 ml Balance 200 ml Laboratory Data Labs 24H Laboratory Tests 2 10/12/20 18:43: Bedside Glucose (Misc Panel) 114H 10/12/20 18:46: Lactic Acid Level 1.6 10/12/20 23:34: Bedside Glucose (Misc Panel) 130H 10/13/20 04:41: Neutrophils (%) (Auto) , Nucleated Red Blood Cells % (auto) 0.0, Neutrophils 83H, Lymphocytes (Manual) 11L, Monocytes (Manual) 2, Eosinophils (Manual) 1, Atypical Lymphocytes 3, Polychromasia 1+, Poikilocytosis 1+, Anisocytosis 1+, Macrocytosis 1+, Platelet Estimate DECREASED, Anion Gap 2L, Glomerular Filtration Rate > 60.0, Calcium Level 8.2L, Phosphorus Level 2.4L, Magnesium Level 2.1, Total Bilirubin 0.5, Aspartate Amino Transf (AST/SGOT) 18, Alanine Aminotransferase (ALT/SGPT) 16, Alkaline Phosphatase 117, Total Protein 6.8, Albumin 1.6L, Albumin/Globulin Ratio 0.3L 10/13/20 05:58: Bedside Glucose (Misc Panel) 131H 10/13/20 12:19: Bedside Glucose (Misc Panel) 132H 10/13/20 12:48: CBC/BMP Laboratory Tests 10/13/20 04:41 FSBS Laboratory Tests Test 10/12/20 18:43 10/12/20 23:34 10/13/20 05:58 10/13/20 12:19 Range/Units Bedside Glucose (Misc Panel) 114 130 131 132 70-105 MG/DL Discharge Medications Scheduled Capecitabine (Capecitabine) 500 Mg Tablet, 3 TAB PO BID Take 3 tabs by mouth twice daily for 14 days then 7 days off. Cholecalciferol (Vitamin D3) (Vitamin D3) 1,000 Unit Tablet, 1,000 UNITS PO DAILY, (Reported) Escitalopram Oxalate (Lexapro) 20 Mg Tablet, 20 MG PO QHS, (Reported) Famotidine (Famotidine) 20 Mg Tablet, 1 TAB PO BID Ondansetron HCl (Zofran) 4 Mg Tablet, 4 MG PO Q6HP Scheduled PRN Acetaminophen (Acetaminophen) 325 Mg Tab, 650 MG PO Q4H PRN for PAIN, (Reported) Loperamide HCl (Imodium A-D) 2 Mg Capsule, 2 MG PO QID PRN for DIARRHEA, (Reported) Lorazepam (Lorazepam) 1 Mg Tablet, 1 MG PO QHS PRN for SLEEP, (Reported) Meclizine HCl (Meclizine HCl) 12.5 Mg Tablet, 12.5 MG PO DAILY PRN for DIZZINESS, (Reported) Simethicone (Gas-X) 125 Mg Tab.chew, 125 MG PO PCHS PRN for GI UPSET, (Reported) Allergies Coded Allergies: nitrofurantoin (Verified Allergy, Mild, RASH, 12/06/19) oxycodone (Verified Adverse Reaction, Intermediate, N/V, 02/10/19) MILDRED FINE MD October 13, 2020 15:52
[2020-10-13] MEDS ORDERED: FAT EMULSION IV 20% 500 ML IV SCH (18:00)
[2020-10-13] MEDS ORDERED: POTASSIUM CHLORIDE IV SCH (18:00)
[2020-10-13] MEDS ORDERED: CALC IV SCH (18:00)
[2020-10-13] MEDS ORDERED: AMINO AC IV SCH (18:00)
[2020-10-13] MEDS ORDERED: ELECTROLYTE IV SCH (18:00)
[2020-10-13] MEDS ORDERED: DEX IV SCH (18:00)
== END 2020-10-13 16:35 | disposition home or self-care (01) | DRG 710 ==
LOC: M ED 11:17 → EDBD 11:17 → M ED INP 14:45 → ENRESERV 15:35 → M PCU 18:00 → M ICU 10-07 07:42
PROVIDERS: ADMIT Internal Medicine; ATTEND Internal Medicine
PROC: 02HV33Z Insertion of Infusion Device into Superior Vena Cava, Percutaneous Approach (ICD-10-PCS; 2020-10-03)
PROC: 30233N1 Transfusion of Nonautologous Red Blood Cells into Peripheral Vein, Percutaneous Approach (ICD-10-PCS; 2020-10-03)
PROC: 5A1945Z Respiratory Ventilation, 24-96 Consecutive Hours (ICD-10-PCS; principal; 2020-10-07)
PROC: 0WJP4ZZ Inspection of Gastrointestinal Tract, Percutaneous Endoscopic Approach (ICD-10-PCS; 2020-10-08)
PROC: 30233R1 Transfusion of Nonautologous Platelets into Peripheral Vein, Percutaneous Approach (ICD-10-PCS; 2020-10-08)
PROC: 05H533Z Insertion of Infusion Device into Right Subclavian Vein, Percutaneous Approach (ICD-10-PCS; 2020-10-08)
DX: A41.9 Sepsis, unspecified organism (principal); J96.01 Acute respiratory failure with hypoxia; R65.21 Severe sepsis with septic shock; J69.0 Pneumonitis due to inhalation of food and vomit; K56.609 Unspecified intestinal obstruction, unspecified as to partial versus complete obstruction; J18.9 Pneumonia, unspecified organism; D61.810 Antineoplastic chemotherapy induced pancytopenia; E87.2 Acidosis; E46 Unspecified protein-calorie malnutrition; C78.7 Secondary malignant neoplasm of liver and intrahepatic bile duct; C78.2 Secondary malignant neoplasm of pleura; E87.1 Hypo-osmolality and hyponatremia; R17 Unspecified jaundice; K56.7 Ileus, unspecified; C50.919 Malignant neoplasm of unspecified site of unspecified female breast; E87.6 Hypokalemia; F31.9 Bipolar disorder, unspecified; Z79.899 Other long term (current) drug therapy; Z88.5 Allergy status to narcotic agent; Z88.8 Allergy status to other drugs, medicaments and biological substances; Z92.21 Personal history of antineoplastic chemotherapy; D50.0 Iron deficiency anemia secondary to blood loss (chronic)